=== PATIENT | male | born 1965 | race Caucasian/White ===

== ENCOUNTER 2017-12-24 18:17 | Emergency (ER) | payer OTHER ==
[~2017-12-24] VITALS: Ht 177.8 cm; Wt 111.1 kg
[~2017-12-24 18:17] MED LIST: ALPR.5; AMLO5; ASPI325; ASPI325 PO; ASPI325EC; ASPI81CH PO; ASPI81EC; ASPI81EC PO; ATOR20; ATOR20 PO; ATOR40TA PO; Adult Low Dose81 MG PO; BENAML20/5; BENTYL20 MG PO; BUSP10 PO; CEPH500 PO; CLON.1; CLON1; CLOP75; CLOP75 PO; COUMADIN; CYCL10 PO; Ciprodex Otic7.5 ML BOTHEARS; DOCU100 PO; ENAL5; ENAL5 PO; GABA100 PO; GABA400 PO; GABA600 PO; GABA800; GLIP10 PO; GLIP5ER PO; HYDACE5 PO; HYDCHL25; HYDPAM25; HYOS.125 SL; IBUP200; IBUP600 PO; IBUP800; IBUP800 PO; INSLI100I SC; INSR10I; INSR10I SC; INSUASPI; INSUASPI SC; INSULANI; INSULANI SC; INSULIN; ISOD40ER; ISOMON30 PO; Isosorbide Mono30 MG PO; KETO10 PO; LANS15EC PO; LISI20 PO; LISI5 PO; LORA.5; LORA1 PO; LORA2 PO; LOVA20; METF500; METF500 PO; METF500C PO; METH40; METH40 PO; METO100 PO; METO100ER; METO50 PO; METO50ER; METO50ER PO; NAPR500 PO; NAPR550 PO; NITR.4SL; NITR.4SL SL; NITRSPRAY SL; Naprosyn500 MG PO; OLAN2.5; OMEP40CA12 PO; ONDA4 PO; ONDA4ODT MM; OXYACE5T PO; OXYC40ER; OXYC5 PO; PENNAL50 PO; PIRO20; Pepcid40 MG PO; QUET; QUET200; RANI150; ROXICODONE5 MG PO; RXLORA1 PO; RXTRAM50 PO; Remeron45 MG PO; SIMV20 PO; SULTRIDS PO; SULTRISS PO; Synthroid88 MCG PO; TOPI100 PO; TRAM50 PO; TRAZ150T57; VENL150ER PO; [UNRECOGNIZED DRUG - CODE]
[2017-12-24 18:46] LABS: BASOPHILS ABSOLUTE AUTO 0.05 K/mm3 (0.00-0.23); BASOPHILS PERCENT AUTO 1 % (0-2); EOSINOPHILS ABSOLUTE AUTO 0.14 K/mm3 (0.00-0.68); EOSINOPHILS PERCENT AUTO 2 % (0-6); Hematocrit 45.5 % (37.0-53.0); Hemoglobin 15.8 g/dL (13.5-17.5); IMMATURE GRAN ABSOLUTE AUTO 0.02 K/mm3 (0.00-0.10); IMMATURE GRAN PERCENT AUTO 0 % (0-1); LYMPHOCYTES ABSOLUTE AUTO 1.77 K/mm3 (0.84-5.20); LYMPHOCYTES PERCENT AUTO 30 % (21-46); MONOCYTES ABSOLUTE AUTO 0.46 K/mm3 (0.16-1.47); MONOCYTES PERCENT AUTO 8 % (4-13); Mean Corpuscular HGB 31.5 pg (26.0-34.0); Mean Corpuscular HGB Conc 34.7 g/dL (31.5-36.5); Mean Corpuscular Volume 91 fL (80-100); Mean Platelet Volume 9.9 fL (9.1-12.4); NEUTROPHILS ABSOLUTE AUTO 3.53 K/mm3 (1.96-9.15); NEUTROPHILS PERCENT AUTO 59 % (41-73); Platelet Count 159 K/mm3 (150-400); RDW Coefficient Variation 12.3 % (11.7-14.2); Red Blood Cell Count 5.01 M/mm3 (4.30-5.90); White Blood Cell Count 5.97 K/mm3 (4.00-11.30)
[2017-12-24 19:04] LABS: Alanine Aminotransfer (ALT/SGP 65 U/L (12-78); Albumin, Blood 3.4 g/dL (3.4-5.0); Albumin/Globulin Ratio 0.9 (0.8-1.8); Alk Phos 79 U/L (50-136); Anion Gap 10 mmol/L (6-16); Aspartate Aminotrans (AST/SGOT 60 U/L (12-37); Bilirubin, Total 0.5 mg/dL (0.1-1.0); Blood Urea Nitrogen 10 mg/dL (8-24); Bun/Creatinine Ratio 12.9 (12.0-20.0); CO2, Blood 22 mmol/L (21-32); Calcium, Blood 8.5 mg/dL (8.5-10.1); Chloride, Blood 102 mmol/L (98-108); Creatinine, Blood 0.78 mg/dL (0.60-1.20); Globulin, Blood 3.8 g/dL (2.2-4.0); Glomerular Filtration Rate >60 (60-); Glucose, Blood 338 mg/dL (70-99); Potassium, Blood 3.7 mmol/L (3.5-5.5); Sodium, Blood 134 mmol/L (136-145); Total Protein, Blood 7.2 g/dL (6.4-8.2); Troponin I <0.015 ng/mL (0.000-0.040)
[2017-12-24] MEDS ORDERED: Humalog100 UNIT/1 (19:08)
[2017-12-24] MEDS ORDERED: Novolog100 UNIT/2 (19:09)
[2017-12-24] MEDS ORDERED: NITR.4SL SL (19:09)
[2017-12-24] MEDS ORDERED: PREG100 PO (19:21)
== END 2017-12-24 23:10 | disposition home or self-care (01) ==
LOC: ER 18:17
PROVIDERS: Emergency Medicine
DX: R07.9 Chest pain, unspecified (principal); Z88.0 Allergy status to penicillin; Z88.5 Allergy status to narcotic agent; Z88.8 Allergy status to other drugs, medicaments and biological substances; Z88.1 Allergy status to other antibiotic agents; Z79.899 Other long term (current) drug therapy; Z79.84 Long term (current) use of oral hypoglycemic drugs; Z79.82 Long term (current) use of aspirin; I25.2 Old myocardial infarction; E11.9 Type 2 diabetes mellitus without complications; I10 Essential (primary) hypertension; Z95.1 Presence of aortocoronary bypass graft; Z87.891 Personal history of nicotine dependence
CPT/HCPCS: 71046; 80053; 83880; 84484; 85025; 93005; 93010; 96361; 96374; 96375; 99284; J1885; J7030

== ENCOUNTER 2018-01-07 21:36 | Emergency (ER) | payer OTHER ==
[~2018-01-07] VITALS: Ht 177.8 cm; Wt 113.4 kg
[~2018-01-07 21:36] MED LIST changes: +Humalog100 UNIT/1; +Novolog100 UNIT/2; +PREG100 PO
[2018-01-07] MEDS ORDERED: LOSA50 PO (22:29)
[2018-01-07] MEDS ORDERED: DIAZ5 PO (22:30)
[2018-01-07] MEDS ORDERED: Omeprazole20 M1 PO (22:31)
[2018-01-07] MEDS ORDERED: LORA1SY PO (22:33)
[2018-01-07 22:43] LABS: BASOPHILS ABSOLUTE AUTO 0.04 K/mm3 (0.00-0.23); BASOPHILS PERCENT AUTO 1 % (0-2); EOSINOPHILS ABSOLUTE AUTO 0.28 K/mm3 (0.00-0.68); EOSINOPHILS PERCENT AUTO 4 % (0-6); Hematocrit 41.2 % (37.0-53.0); Hemoglobin 14.5 g/dL (13.5-17.5); IMMATURE GRAN ABSOLUTE AUTO 0.03 K/mm3 (0.00-0.10); IMMATURE GRAN PERCENT AUTO 0 % (0-1); LYMPHOCYTES ABSOLUTE AUTO 2.41 K/mm3 (0.84-5.20); LYMPHOCYTES PERCENT AUTO 33 % (21-46); MONOCYTES ABSOLUTE AUTO 0.58 K/mm3 (0.16-1.47); MONOCYTES PERCENT AUTO 8 % (4-13); Mean Corpuscular HGB 31.9 pg (26.0-34.0); Mean Corpuscular HGB Conc 35.2 g/dL (31.5-36.5); Mean Corpuscular Volume 91 fL (80-100); Mean Platelet Volume 10.6 fL (9.1-12.4); NEUTROPHILS ABSOLUTE AUTO 4.08 K/mm3 (1.96-9.15); NEUTROPHILS PERCENT AUTO 55 % (41-73); Platelet Count 145 K/mm3 (150-400); RDW Coefficient Variation 11.9 % (11.7-14.2); RDW Standard Deviation 39.8 fL (35.1-46.3); Red Blood Cell Count 4.55 M/mm3 (4.30-5.90); White Blood Cell Count 7.42 K/mm3 (4.00-11.30)
[2018-01-07 22:55] LABS: Chloride (POC) 101 mmol/L (98-108); Creatinine (POC) 0.9 mg/dL (0.8-1.3); Glucose (ISTAT POC) 326 mg/dL (70-99); Hemoglobin (POC) 13.3 g/dL (13.5-17.5); Potassium (POC) 3.5 mmol/L (3.5-5.5); Sodium (POC) 139 mmol/L (135-148); Total CO2 (POC) 27 mmol/L (21-32)
[2018-01-07 23:10] LABS: International Normalized Ratio 1.05; Prothrombin Time Results 10.9 Sec (9.7-11.5)
[2018-01-07 23:18] LABS: Alanine Aminotransfer (ALT/SGP 62 U/L (12-78); Albumin, Blood 3.1 g/dL (3.4-5.0); Albumin/Globulin Ratio 0.9 (0.8-1.8); Alk Phos 80 U/L (50-136); Anion Gap 8 mmol/L (6-16); Aspartate Aminotrans (AST/SGOT 29 U/L (12-37); Bilirubin, Total 0.3 mg/dL (0.1-1.0); Blood Urea Nitrogen 12 mg/dL (8-24); Bun/Creatinine Ratio 13.6 (12.0-20.0); CO2, Blood 28 mmol/L (21-32); Calcium, Blood 8.1 mg/dL (8.5-10.1); Chloride, Blood 104 mmol/L (98-108); Creatinine, Blood 0.89 mg/dL (0.60-1.20); Ethanol (Alcohol), Blood, Med <3 mg/dL; Globulin, Blood 3.5 g/dL (2.2-4.0); Glomerular Filtration Rate >60 (60-); Glucose, Blood 309 mg/dL (70-99); Potassium, Blood 3.6 mmol/L (3.5-5.5); Sodium, Blood 140 mmol/L (136-145); Total Protein, Blood 6.6 g/dL (6.4-8.2)
== END 2018-01-08 00:29 | disposition home or self-care (01) ==
LOC: ER 21:36
PROVIDERS: Emergency Medicine
DX: M54.2 Cervicalgia (principal); M54.6 Pain in thoracic spine; M79.651 Pain in right thigh; I10 Essential (primary) hypertension; E11.9 Type 2 diabetes mellitus without complications; Z88.0 Allergy status to penicillin; Z88.5 Allergy status to narcotic agent; Z88.1 Allergy status to other antibiotic agents; Z88.8 Allergy status to other drugs, medicaments and biological substances; Z79.4 Long term (current) use of insulin; Z79.82 Long term (current) use of aspirin; Z79.899 Other long term (current) drug therapy; V03.99XA Pedestrian with other conveyance injured in collision with car, pick-up truck or van, unspecified whether traffic or nontraffic accident, initial encounter
CPT/HCPCS: 36415; 70450; 71260; 72125; 73552; 74177; 80047; 80053; 85014; 85025; 85610; 96361; 96374; 96376; 99284; G0480; J1170; J7030; Q9967

== ENCOUNTER 2018-02-07 19:44 | Emergency (ER) | payer OTHER ==
[~2018-02-07] VITALS: Ht 177.8 cm; Wt 113.4 kg
[~2018-02-07 19:44] MED LIST changes: +DIAZ5 PO; +LORA1SY PO; +LOSA50 PO; +Omeprazole20 M1 PO
[2018-02-07 20:12] LABS: BASOPHILS ABSOLUTE AUTO 0.04 K/mm3 (0.00-0.23); BASOPHILS PERCENT AUTO 1 % (0-2); EOSINOPHILS ABSOLUTE AUTO 0.21 K/mm3 (0.00-0.68); EOSINOPHILS PERCENT AUTO 3 % (0-6); Hematocrit 43.1 % (37.0-53.0); Hemoglobin 14.9 g/dL (13.5-17.5); IMMATURE GRAN ABSOLUTE AUTO 0.03 K/mm3 (0.00-0.10); IMMATURE GRAN PERCENT AUTO 0 % (0-1); LYMPHOCYTES ABSOLUTE AUTO 2.73 K/mm3 (0.84-5.20); LYMPHOCYTES PERCENT AUTO 35 % (21-46); MONOCYTES ABSOLUTE AUTO 0.61 K/mm3 (0.16-1.47); MONOCYTES PERCENT AUTO 8 % (4-13); Mean Corpuscular HGB 32.2 pg (26.0-34.0); Mean Corpuscular HGB Conc 34.6 g/dL (31.5-36.5); Mean Corpuscular Volume 93 fL (80-100); Mean Platelet Volume 9.8 fL (9.1-12.4); NEUTROPHILS ABSOLUTE AUTO 4.17 K/mm3 (1.96-9.15); NEUTROPHILS PERCENT AUTO 54 % (41-73); Platelet Count 170 K/mm3 (150-400); RDW Coefficient Variation 12.7 % (11.7-14.2); RDW Standard Deviation 43.1 fL (35.1-46.3); Red Blood Cell Count 4.63 M/mm3 (4.30-5.90); White Blood Cell Count 7.79 K/mm3 (4.00-11.30)
[2018-02-07 20:21] LABS: Alanine Aminotransfer (ALT/SGP 43 U/L (12-78); Albumin, Blood 3.6 g/dL (3.4-5.0); Alk Phos 84 U/L (50-136); Anion Gap 3 mmol/L (6-16); Aspartate Aminotrans (AST/SGOT 28 U/L (12-37); Bilirubin, Total 0.4 mg/dL (0.1-1.0); Blood Urea Nitrogen 14 mg/dL (8-24); Bun/Creatinine Ratio 17.6 (12.0-20.0); CO2, Blood 28 mmol/L (21-32); Calcium, Blood 8.4 mg/dL (8.5-10.1); Chloride, Blood 104 mmol/L (98-108); Globulin, Blood 3.6 g/dL (2.2-4.0); Glomerular Filtration Rate >60 (60-); Glucose, Blood 260 mg/dL (70-99); Potassium, Blood 3.8 mmol/L (3.5-5.5); Sodium, Blood 135 mmol/L (136-145); Total Protein, Blood 7.2 g/dL (6.4-8.2); Troponin I <0.015 ng/mL (0.000-0.040)
[2018-02-07 20:25] LABS: International Normalized Ratio 1.01; Prothrombin Time Results 10.5 Sec (9.7-11.5)
[2018-02-07] MEDS ORDERED: ATOR20 PO (22:43)
[2018-02-07] MEDS ORDERED: TAMS.4ER PO (22:43)
[2018-02-07] MEDS ORDERED: BUSP5 PO (22:43)
[2018-02-07] MEDS ORDERED: GABA600 (22:43)
[2018-02-07] MEDS ORDERED: Novolog100 UNIT/2 (22:44)
[2018-02-07] MEDS ORDERED: INSULANPEN (22:44)
== END 2018-02-08 00:19 | disposition home or self-care (01) ==
LOC: ER 19:44
PROVIDERS: Emergency Medicine
DX: R07.2 Precordial pain (principal); Z88.0 Allergy status to penicillin; Z88.5 Allergy status to narcotic agent; Z88.8 Allergy status to other drugs, medicaments and biological substances; Z88.1 Allergy status to other antibiotic agents; Z79.899 Other long term (current) drug therapy; Z79.84 Long term (current) use of oral hypoglycemic drugs; Z79.82 Long term (current) use of aspirin; I25.2 Old myocardial infarction; E11.9 Type 2 diabetes mellitus without complications; I10 Essential (primary) hypertension; Z87.891 Personal history of nicotine dependence
CPT/HCPCS: 36415; 71046; 80053; 83880; 84484; 85025; 85610; 85730; 93005; 93010; 96374; 96375; 99284; J2405; J3010

== ENCOUNTER 2018-03-09 15:04 | Observation (INO) | payer OTHER ==
[~2018-03-09] VITALS: Ht 177.8 cm; Wt 108.8 kg
[~2018-03-09 15:04] MED LIST changes: +BUSP5 PO; +GABA600; +INSULANPEN; +TAMS.4ER PO
[2018-03-09 15:35] LABS: BASOPHILS ABSOLUTE AUTO 0.07 K/mm3 (0.00-0.23); BASOPHILS PERCENT AUTO 1 % (0-2); EOSINOPHILS ABSOLUTE AUTO 0.17 K/mm3 (0.00-0.68); EOSINOPHILS PERCENT AUTO 2 % (0-6); Hematocrit 44.1 % (37.0-53.0); Hemoglobin 15.6 g/dL (13.5-17.5); IMMATURE GRAN ABSOLUTE AUTO 0.03 K/mm3 (0.00-0.10); IMMATURE GRAN PERCENT AUTO 0 % (0-1); LYMPHOCYTES ABSOLUTE AUTO 2.34 K/mm3 (0.84-5.20); LYMPHOCYTES PERCENT AUTO 29 % (21-46); MONOCYTES ABSOLUTE AUTO 0.54 K/mm3 (0.16-1.47); MONOCYTES PERCENT AUTO 7 % (4-13); Mean Corpuscular HGB 31.8 pg (26.0-34.0); Mean Corpuscular HGB Conc 35.4 g/dL (31.5-36.5); Mean Corpuscular Volume 90 fL (80-100); Mean Platelet Volume 9.8 fL (9.1-12.4); NEUTROPHILS ABSOLUTE AUTO 5.07 K/mm3 (1.96-9.15); NEUTROPHILS PERCENT AUTO 62 % (41-73); Platelet Count 194 K/mm3 (150-400); RDW Coefficient Variation 12.3 % (11.7-14.2); RDW Standard Deviation 40.5 fL (35.1-46.3); Red Blood Cell Count 4.91 M/mm3 (4.30-5.90); White Blood Cell Count 8.22 K/mm3 (4.00-11.30)
[2018-03-09 15:49] LABS: International Normalized Ratio 1.07; Prothrombin Time Results 11.1 Sec (9.7-11.5)
[2018-03-09 15:50] LABS: Alanine Aminotransfer (ALT/SGP 54 U/L (12-78); Albumin, Blood 3.6 g/dL (3.4-5.0); Albumin/Globulin Ratio 0.9 (0.8-1.8); Alk Phos 86 U/L (50-136); Anion Gap 8 mmol/L (6-16); Aspartate Aminotrans (AST/SGOT 46 U/L (12-37); Bilirubin, Total 0.6 mg/dL (0.1-1.0); Blood Urea Nitrogen 11 mg/dL (8-24); Bun/Creatinine Ratio 14.3 (12.0-20.0); CO2, Blood 26 mmol/L (21-32); Calcium, Blood 8.7 mg/dL (8.5-10.1); Chloride, Blood 106 mmol/L (98-108); Creatinine, Blood 0.77 mg/dL (0.60-1.20); Globulin, Blood 3.8 g/dL (2.2-4.0); Glomerular Filtration Rate >60 (60-); Glucose, Blood 135 mg/dL (70-99); Potassium, Blood 3.7 mmol/L (3.5-5.5); Sodium, Blood 140 mmol/L (136-145); Total Protein, Blood 7.4 g/dL (6.4-8.2); Troponin I <0.015 ng/mL (0.000-0.040)
[2018-03-10 01:10] LABS: U Amphetamine Screen Not Detected; U Barbituate Screen Not Detected; U Benzodiazapine Screen DETECTED; U Buprenorphine Screen Not Detected; U Cannabinoids Screen DETECTED; U Cocaine Screen Not Detected; U Methadone Screen Not Detected; U Methamphetamine Screen Not Detected; U Opiates Screen Not Detected; U Oxycodone Screen Not Detected; U Phencyclidine Screen Not Detected
[2018-03-10 01:11] LABS: U Propoxyphene Screen Not Detected
[2018-03-10] MEDS ORDERED: BASAGLAR K100 UNIT/1 SQ (17:14)
[2018-03-10] MEDS ORDERED: ISOMON20 PO (17:17)
== END 2018-03-10 17:43 | disposition home or self-care (01) ==
LOC: ER 15:04 → PCU 15:05
PROVIDERS: Emergency Medicine
DX: R07.9 Chest pain, unspecified (principal); I10 Essential (primary) hypertension; E11.9 Type 2 diabetes mellitus without complications; E78.5 Hyperlipidemia, unspecified; I25.10 Atherosclerotic heart disease of native coronary artery without angina pectoris; Z79.4 Long term (current) use of insulin; Z95.1 Presence of aortocoronary bypass graft; Z87.891 Personal history of nicotine dependence; Z88.0 Allergy status to penicillin; Z88.1 Allergy status to other antibiotic agents; Z88.5 Allergy status to narcotic agent; Z88.8 Allergy status to other drugs, medicaments and biological substances; Z79.82 Long term (current) use of aspirin; Z79.899 Other long term (current) drug therapy; Z79.01 Long term (current) use of anticoagulants
CPT/HCPCS: 36415; 70450; 70496; 70498; 71275; 74175; 78452; 80053; 82947; 84484; 85025; 85610; 85730; 93005; 93010; 93017; 96360; 96361; 96372; 96374; 96376; 99285; A9500; G0378; J0280; J1650; J1815; J2785; J3010; J7030; Q9967

== ENCOUNTER 2018-07-16 17:57 | Emergency (ER) | payer OTHER ==
[~2018-07-16] VITALS: Ht 177.8 cm; Wt 106.6 kg
[~2018-07-16 17:57] MED LIST changes: +BASAGLAR K100 UNIT/1 SQ; +ISOMON20 PO
[2018-07-16 18:25] LABS: BASOPHILS ABSOLUTE AUTO 0.05 K/mm3 (0.00-0.23); BASOPHILS PERCENT AUTO 1 % (0-2); EOSINOPHILS ABSOLUTE AUTO 0.29 K/mm3 (0.00-0.68); EOSINOPHILS PERCENT AUTO 4 % (0-6); Hematocrit 47.1 % (37.0-53.0); Hemoglobin 16.3 g/dL (13.5-17.5); IMMATURE GRAN ABSOLUTE AUTO 0.02 K/mm3 (0.00-0.10); IMMATURE GRAN PERCENT AUTO 0 % (0-1); LYMPHOCYTES ABSOLUTE AUTO 2.23 K/mm3 (0.84-5.20); LYMPHOCYTES PERCENT AUTO 31 % (21-46); MONOCYTES ABSOLUTE AUTO 0.63 K/mm3 (0.16-1.47); MONOCYTES PERCENT AUTO 9 % (4-13); Mean Corpuscular HGB Conc 34.6 g/dL (31.5-36.5); Mean Corpuscular Volume 93 fL (80-100); Mean Platelet Volume 9.6 fL (9.1-12.4); NEUTROPHILS PERCENT AUTO 56 % (41-73); Platelet Count 188 K/mm3 (150-400); RDW Coefficient Variation 11.9 % (11.7-14.2); RDW Standard Deviation 41.1 fL (35.1-46.3); Red Blood Cell Count 5.09 M/mm3 (4.30-5.90); White Blood Cell Count 7.32 K/mm3 (4.00-11.30)
[2018-07-16 19:02] LABS: Alanine Aminotransfer (ALT/SGP 46 U/L (12-78); Albumin, Blood 3.6 g/dL (3.4-5.0); Albumin/Globulin Ratio 0.9 (0.8-1.8); Alk Phos 87 U/L (50-136); Anion Gap 9 mmol/L (6-16); Aspartate Aminotrans (AST/SGOT 28 U/L (12-37); Bilirubin, Total 0.6 mg/dL (0.1-1.0); Blood Urea Nitrogen 17 mg/dL (8-24); Bun/Creatinine Ratio 18.6 (12.0-20.0); CO2, Blood 24 mmol/L (21-32); Calcium, Blood 8.8 mg/dL (8.5-10.1); Chloride, Blood 102 mmol/L (98-108); Creatinine, Blood 0.91 mg/dL (0.60-1.20); Globulin, Blood 3.9 g/dL (2.2-4.0); Glomerular Filtration Rate >60 (60-); Glucose, Blood 225 mg/dL (70-99); Potassium, Blood 4.2 mmol/L (3.5-5.5); Sodium, Blood 135 mmol/L (136-145); Total Protein, Blood 7.5 g/dL (6.4-8.2); Troponin I <0.015 ng/mL (0.000-0.040)
== END 2018-07-16 20:40 | disposition home or self-care (01) ==
LOC: ER 17:57
PROVIDERS: Internal Medicine
DX: R07.89 Other chest pain (principal); I25.2 Old myocardial infarction; E11.9 Type 2 diabetes mellitus without complications; I10 Essential (primary) hypertension; Z88.0 Allergy status to penicillin; Z88.5 Allergy status to narcotic agent; Z88.8 Allergy status to other drugs, medicaments and biological substances; Z88.1 Allergy status to other antibiotic agents; Z79.899 Other long term (current) drug therapy; Z79.82 Long term (current) use of aspirin; Z79.4 Long term (current) use of insulin; Z87.891 Personal history of nicotine dependence
CPT/HCPCS: 71046; 80053; 84484; 85025; 93005; 93010; 96374; 96375; 99284-25; J1200; J1885; J2765

== ENCOUNTER 2019-01-29 07:48 | Emergency (ER) | payer OTHER ==
[~2019-01-29] VITALS: Ht 177.8 cm; Wt 102.1 kg
[2019-01-29 08:43] LABS: BASOPHILS ABSOLUTE AUTO 0.06 K/mm3 (0.00-0.23); BASOPHILS PERCENT AUTO 1 % (0-2); EOSINOPHILS ABSOLUTE AUTO 0.37 K/mm3 (0.00-0.68); EOSINOPHILS PERCENT AUTO 6 % (0-6); Hematocrit 37.6 % (37.0-53.0); Hemoglobin 13.1 g/dL (13.5-17.5); IMMATURE GRAN ABSOLUTE AUTO 0.02 K/mm3 (0.00-0.10); IMMATURE GRAN PERCENT AUTO 0 % (0-1); LYMPHOCYTES ABSOLUTE AUTO 1.41 K/mm3 (0.84-5.20); LYMPHOCYTES PERCENT AUTO 21 % (21-46); MONOCYTES PERCENT AUTO 9 % (4-13); Mean Corpuscular HGB 31.6 pg (26.0-34.0); Mean Corpuscular HGB Conc 34.8 g/dL (31.5-36.5); Mean Corpuscular Volume 91 fL (80-100); Mean Platelet Volume 10.3 fL (9.1-12.4); NEUTROPHILS ABSOLUTE AUTO 4.28 K/mm3 (1.96-9.15); NEUTROPHILS PERCENT AUTO 64 % (41-73); Platelet Count 175 K/mm3 (150-400); RDW Coefficient Variation 13.2 % (11.7-14.2); RDW Standard Deviation 43.6 fL (35.1-46.3); Red Blood Cell Count 4.15 M/mm3 (4.30-5.90); White Blood Cell Count 6.74 K/mm3 (4.00-11.30)
[2019-01-29 08:51] LABS: Alanine Aminotransfer (ALT/SGP 19 U/L (12-78); Albumin, Blood 3.2 g/dL (3.4-5.0); Alk Phos 64 U/L (50-136); Anion Gap 7 mmol/L (6-16); Aspartate Aminotrans (AST/SGOT 18 U/L (12-37); Bilirubin, Total 0.5 mg/dL (0.1-1.0); Blood Urea Nitrogen 20 mg/dL (8-24); Bun/Creatinine Ratio 24.5 (12.0-20.0); CO2, Blood 25 mmol/L (21-32); Calcium, Blood 8.3 mg/dL (8.5-10.1); Chloride, Blood 109 mmol/L (98-108); Creatinine, Blood 0.82 mg/dL (0.60-1.20); Globulin, Blood 3.3 g/dL (2.2-4.0); Glomerular Filtration Rate >60 (60-); Glucose, Blood 223 mg/dL (70-99); Potassium, Blood 4.7 mmol/L (3.5-5.5); Sodium, Blood 141 mmol/L (136-145); Total Protein, Blood 6.5 g/dL (6.4-8.2); Troponin I <0.015 ng/mL (0.000-0.040)
[2019-01-29 09:27] LABS: Source, Urine Clean Catch
[2019-01-29 09:34] LABS: Bilirubin, Urine Neg (Neg); Blood, Urine Neg (Neg); Glucose Qualitative, Urine 2+ (Neg); Ketones, Urine 1+ (Neg); Leukocyte Esterase, Urine Neg (Neg); Nitrite, Urine Neg (Neg); Protein, Urine 1+ (Neg); Urobilinogen, Urine 1+ (Normal)
[2019-01-29 10:22] LABS: Appearance, Urine Clear (Clear); Color, Urine Yellow (P-Yellow)
== END 2019-01-29 12:46 | disposition home or self-care (01) ==
LOC: ER 07:48
PROVIDERS: Emergency Medicine
DX: E11.622 Type 2 diabetes mellitus with other skin ulcer (principal); L97.529 Non-pressure chronic ulcer of other part of left foot with unspecified severity; E11.65 Type 2 diabetes mellitus with hyperglycemia; I25.2 Old myocardial infarction; I10 Essential (primary) hypertension; E03.9 Hypothyroidism, unspecified; Z87.891 Personal history of nicotine dependence; Z79.899 Other long term (current) drug therapy; Z79.4 Long term (current) use of insulin; Z79.82 Long term (current) use of aspirin
CPT/HCPCS: 36415; 70450; 80053; 84484; 85025; 93005; 93010; 96360; 99284-25; J7030

== ENCOUNTER 2019-02-09 07:38 | Emergency (ER) | payer OTHER ==
[~2019-02-09] VITALS: Ht 177.8 cm; Wt 106.6 kg
[2019-02-09] MEDS ORDERED: Bactrim Ds Tab1 EACH PO (08:04)
[2019-02-09] MEDS ORDERED: CEPH500 PO (08:04)
== END 2019-02-09 08:10 | disposition home or self-care (01) ==
LOC: ER 07:38
DX: S71.102A Unspecified open wound, left thigh, initial encounter (principal); L03.116 Cellulitis of left lower limb; X58.XXXA Exposure to other specified factors, initial encounter; Z88.0 Allergy status to penicillin; Z88.5 Allergy status to narcotic agent; Z88.8 Allergy status to other drugs, medicaments and biological substances; Z88.1 Allergy status to other antibiotic agents; Z79.4 Long term (current) use of insulin; Z79.899 Other long term (current) drug therapy; Z79.82 Long term (current) use of aspirin; E11.9 Type 2 diabetes mellitus without complications; I10 Essential (primary) hypertension; I25.2 Old myocardial infarction; Z87.891 Personal history of nicotine dependence; E03.9 Hypothyroidism, unspecified
CPT/HCPCS: 99281

== ENCOUNTER 2019-04-24 15:16 | Emergency (ER) | payer OTHER ==
[~2019-04-24] VITALS: Ht 177.8 cm; Wt 102.1 kg
[~2019-04-24 15:16] MED LIST changes: +BASAGLAR K100 UNIT/1 SC; +Bactrim Ds Tab1 EACH PO; +MIRT30 PO; +Novolin R100 UNIT/M SC; -Remeron45 MG PO
[2019-04-24 16:49] LABS: BASOPHILS ABSOLUTE AUTO 0.07 K/mm3 (0.00-0.23); BASOPHILS PERCENT AUTO 1 % (0-2); EOSINOPHILS ABSOLUTE AUTO 0.34 K/mm3 (0.00-0.68); EOSINOPHILS PERCENT AUTO 5 % (0-6); Hemoglobin 12.2 g/dL (13.5-17.5); IMMATURE GRAN ABSOLUTE AUTO 0.02 K/mm3 (0.00-0.10); IMMATURE GRAN PERCENT AUTO 0 % (0-1); LYMPHOCYTES ABSOLUTE AUTO 2.34 K/mm3 (0.84-5.20); LYMPHOCYTES PERCENT AUTO 32 % (21-46); MONOCYTES ABSOLUTE AUTO 0.46 K/mm3 (0.16-1.47); MONOCYTES PERCENT AUTO 6 % (4-13); Mean Corpuscular HGB 27.4 pg (26.0-34.0); Mean Corpuscular HGB Conc 32.1 g/dL (31.5-36.5); Mean Corpuscular Volume 85 fL (80-100); Mean Platelet Volume 8.9 fL (9.1-12.4); NEUTROPHILS ABSOLUTE AUTO 4.06 K/mm3 (1.96-9.15); NEUTROPHILS PERCENT AUTO 56 % (41-73); Platelet Count 358 K/mm3 (150-400); RDW Coefficient Variation 13.4 % (11.7-14.2); RDW Standard Deviation 41.3 fL (35.1-46.3); Red Blood Cell Count 4.46 M/mm3 (4.30-5.90); White Blood Cell Count 7.29 K/mm3 (4.00-11.30)
[2019-04-24 17:06] LABS: Alanine Aminotransfer (ALT/SGP 26 U/L (12-78); Albumin, Blood 3.3 g/dL (3.4-5.0); Albumin/Globulin Ratio 0.7 (0.8-1.8); Alk Phos 93 U/L (50-136); Anion Gap 5 mmol/L (6-16); Aspartate Aminotrans (AST/SGOT 21 U/L (12-37); Bilirubin, Total 0.4 mg/dL (0.1-1.0); Blood Urea Nitrogen 14 mg/dL (8-24); Bun/Creatinine Ratio 16.9 (12.0-20.0); CO2, Blood 29 mmol/L (21-32); Calcium, Blood 8.9 mg/dL (8.5-10.1); Chloride, Blood 103 mmol/L (98-108); Creatinine, Blood 0.83 mg/dL (0.60-1.20); Globulin, Blood 4.8 g/dL (2.2-4.0); Glomerular Filtration Rate >60 (60-); Glucose, Blood 184 mg/dL (70-99); Potassium, Blood 3.7 mmol/L (3.5-5.5); Sodium, Blood 137 mmol/L (136-145); Total Protein, Blood 8.1 g/dL (6.4-8.2)
[2019-04-24] MEDS ORDERED: Cleocin HCl300 MG PO (19:39)
[2019-05-01] MEDS ORDERED: Synthroid88 MCG PO (11:26)
[2019-05-01] MEDS ORDERED: Lipitor20 MG PO (11:27)
[2019-05-01] MEDS ORDERED: LOSA50 PO (11:27)
[2019-05-01] MEDS ORDERED: MIRT30 PO (11:27)
[2019-05-01] MEDS ORDERED: Isosorbide Mono30 MG PO (11:27)
[2019-05-01] MEDS ORDERED: Metformin HCl1000 MG PO (11:27)
[2019-05-01] MEDS ORDERED: Citalopram HBr40 MG PO (11:28)
[2019-05-01] MEDS ORDERED: PANT40 PO (11:28)
[2019-05-01] MEDS ORDERED: NITR.4SL SL (11:29)
[2019-05-01] MEDS ORDERED: Aspirin EC81 MG PO (11:30)
[2019-05-01] MEDS ORDERED: DIAZ5 PO (11:30)
[2019-05-01] MEDS ORDERED: BASAGLAR K100 UNIT/1 SC (11:31)
[2019-05-01] MEDS ORDERED: METO100ER PO (11:31)
[2019-05-01] MEDS ORDERED: Mobic15 MG PO (11:31)
[2019-05-01] MEDS ORDERED: TAMS.4ER PO (11:32)
[2019-05-01] MEDS ORDERED: BUSP5 PO (11:32)
[2019-05-01] MEDS ORDERED: Novolog100 UNIT/1 SC (11:32)
[2019-05-01] MEDS ORDERED: Neurontin600 MG PO (11:33)
[2019-06-13] MEDS ORDERED: OXYC5 PO (14:13)
[2019-06-13] MEDS ORDERED: DIAZ5 PO (14:14)
[2019-06-13] MEDS ORDERED: Mobic15 MG PO (14:14)
[2019-06-13] MEDS ORDERED: BUSP5 PO (14:16)
[2019-06-13] MEDS ORDERED: INSUGL100V SC (14:17)
== END 2019-04-24 20:39 | disposition home or self-care (01) ==
LOC: ER 15:16
PROVIDERS: Physician Assistant
DX: T81.49XA Infection following a procedure, other surgical site, initial encounter (principal); L03.311 Cellulitis of abdominal wall; Z88.0 Allergy status to penicillin; Z88.5 Allergy status to narcotic agent; Z88.1 Allergy status to other antibiotic agents; Z79.899 Other long term (current) drug therapy; Z79.4 Long term (current) use of insulin; I25.2 Old myocardial infarction; E11.9 Type 2 diabetes mellitus without complications; I10 Essential (primary) hypertension; E03.9 Hypothyroidism, unspecified; Z87.891 Personal history of nicotine dependence
CPT/HCPCS: 36415; 74177; 80053; 85025; 99284-25; Q9967

== ENCOUNTER 2019-05-02 17:54 | Emergency (ER) | payer OTHER ==
[~2019-05-02] VITALS: Ht 177.8 cm; Wt 101.2 kg
[~2019-05-02 17:54] MED LIST changes: +Aspirin EC81 MG PO; +Citalopram HBr40 MG PO; +Cleocin HCl300 MG PO; +Lipitor20 MG PO; +METO100ER PO; +Metformin HCl1000 MG PO; +Mobic15 MG PO; +Neurontin600 MG PO; +Novolog100 UNIT/1 SC; +PANT40 PO
[2019-05-02 18:34] LABS: BASOPHILS ABSOLUTE AUTO 0.03 K/mm3 (0.00-0.23); BASOPHILS PERCENT AUTO 1 % (0-2); EOSINOPHILS ABSOLUTE AUTO 0.28 K/mm3 (0.00-0.68); EOSINOPHILS PERCENT AUTO 6 % (0-6); Hematocrit 32.7 % (37.0-53.0); Hemoglobin 10.3 g/dL (13.5-17.5); IMMATURE GRAN ABSOLUTE AUTO 0.01 K/mm3 (0.00-0.10); IMMATURE GRAN PERCENT AUTO 0 % (0-1); LYMPHOCYTES ABSOLUTE AUTO 1.72 K/mm3 (0.84-5.20); LYMPHOCYTES PERCENT AUTO 34 % (21-46); MONOCYTES ABSOLUTE AUTO 0.44 K/mm3 (0.16-1.47); MONOCYTES PERCENT AUTO 9 % (4-13); Mean Corpuscular HGB 27.4 pg (26.0-34.0); Mean Corpuscular HGB Conc 31.5 g/dL (31.5-36.5); Mean Corpuscular Volume 87 fL (80-100); Mean Platelet Volume 9.1 fL (9.1-12.4); NEUTROPHILS ABSOLUTE AUTO 2.56 K/mm3 (1.96-9.15); NEUTROPHILS PERCENT AUTO 51 % (41-73); Platelet Count 155 K/mm3 (150-400); RDW Coefficient Variation 13.6 % (11.7-14.2); RDW Standard Deviation 43.1 fL (35.1-46.3); Red Blood Cell Count 3.76 M/mm3 (4.30-5.90); White Blood Cell Count 5.04 K/mm3 (4.00-11.30)
[2019-05-02 18:52] LABS: Alanine Aminotransfer (ALT/SGP 38 U/L (12-78); Albumin/Globulin Ratio 0.8 (0.8-1.8); Alk Phos 77 U/L (50-136); Anion Gap 6 mmol/L (6-16); Aspartate Aminotrans (AST/SGOT 25 U/L (12-37); Bilirubin, Total 0.6 mg/dL (0.1-1.0); Blood Urea Nitrogen 11 mg/dL (8-24); Bun/Creatinine Ratio 15.4 (12.0-20.0); CO2, Blood 28 mmol/L (21-32); Calcium, Blood 8.3 mg/dL (8.5-10.1); Chloride, Blood 102 mmol/L (98-108); Creatinine, Blood 0.72 mg/dL (0.60-1.20); Globulin, Blood 3.6 g/dL (2.2-4.0); Glomerular Filtration Rate >60 (60-); Glucose, Blood 306 mg/dL (70-99); Potassium, Blood 4.1 mmol/L (3.5-5.5); Sodium, Blood 136 mmol/L (136-145); Total Protein, Blood 6.6 g/dL (6.4-8.2); Troponin I <0.015 ng/mL (0.000-0.040)
[2019-06-13] MEDS ORDERED: OXYC5 PO (14:13)
[2019-06-13] MEDS ORDERED: Mobic15 MG PO (14:14)
[2019-06-13] MEDS ORDERED: DIAZ5 PO (14:14)
[2019-06-13] MEDS ORDERED: BUSP5 PO (14:16)
[2019-06-13] MEDS ORDERED: INSUGL100V SC (14:17)
== END 2019-05-02 22:03 | disposition home or self-care (01) ==
LOC: ER 17:54
PROVIDERS: Emergency Medicine
DX: R07.9 Chest pain, unspecified (principal); E11.9 Type 2 diabetes mellitus without complications; C18.9 Malignant neoplasm of colon, unspecified; E03.9 Hypothyroidism, unspecified; I10 Essential (primary) hypertension; I25.2 Old myocardial infarction; I47.1 Supraventricular tachycardia; Z87.891 Personal history of nicotine dependence; Z88.0 Allergy status to penicillin; Z88.5 Allergy status to narcotic agent; Z88.8 Allergy status to other drugs, medicaments and biological substances; Z79.82 Long term (current) use of aspirin; Z79.899 Other long term (current) drug therapy; Z79.4 Long term (current) use of insulin
CPT/HCPCS: 36415; 71260; 80053; 84484; 85025; 93005; 93010; 96374-59; 96375-59; 99285-25; J1885; J3010; Q9967

== ENCOUNTER 2019-05-04 06:04 | Day surgery (SDC) | payer OTHER ==
[~2019-05-04] VITALS: Ht 177.8 cm; Wt 106.4 kg
[2019-06-13] MEDS ORDERED: OXYC5 PO (14:13)
[2019-06-13] MEDS ORDERED: Mobic15 MG PO (14:14)
[2019-06-13] MEDS ORDERED: DIAZ5 PO (14:14)
[2019-06-13] MEDS ORDERED: BUSP5 PO (14:16)
[2019-06-13] MEDS ORDERED: INSUGL100V SC (14:17)
== END 2019-05-04 09:40 | disposition home or self-care (01) ==
LOC: ORSCSDS 06:04
PROVIDERS: Surgery
PROC: 05H533Z Insertion of Infusion Device into Right Subclavian Vein, Percutaneous Approach (ICD-10-PCS; principal; 2019-05-04 07:30)
PROC: B5161ZA Fluoroscopy of Right Subclavian Vein using Low Osmolar Contrast, Guidance (ICD-10-PCS; principal; 2019-05-04 07:30)
DX: C20 Malignant neoplasm of rectum (principal); I10 Essential (primary) hypertension; E11.9 Type 2 diabetes mellitus without complications; I25.10 Atherosclerotic heart disease of native coronary artery without angina pectoris; F17.210 Nicotine dependence, cigarettes, uncomplicated; I25.2 Old myocardial infarction; Z79.4 Long term (current) use of insulin; Z79.82 Long term (current) use of aspirin; Z79.899 Other long term (current) drug therapy; E66.9 Obesity, unspecified; Z68.33 Body mass index [BMI] 33.0-33.9, adult
CPT/HCPCS: 77001; 82947; C1788; J0690; J1100; J1642; J2250; J2405; J2704; J3010; J7120

== ENCOUNTER 2019-05-12 18:43 | Observation (INO) | payer OTHER ==
[~2019-05-12] VITALS: Ht 175.3 cm; Wt 108.4 kg
[2019-05-12 19:19] LABS: BASOPHILS ABSOLUTE AUTO 0.05 K/mm3 (0.00-0.23); BASOPHILS PERCENT AUTO 1 % (0-2); EOSINOPHILS ABSOLUTE AUTO 0.28 K/mm3 (0.00-0.68); EOSINOPHILS PERCENT AUTO 4 % (0-6); Hematocrit 35.6 % (37.0-53.0); Hemoglobin 10.9 g/dL (13.5-17.5); IMMATURE GRAN ABSOLUTE AUTO 0.02 K/mm3 (0.00-0.10); IMMATURE GRAN PERCENT AUTO 0 % (0-1); LYMPHOCYTES ABSOLUTE AUTO 1.79 K/mm3 (0.84-5.20); LYMPHOCYTES PERCENT AUTO 28 % (21-46); MONOCYTES ABSOLUTE AUTO 0.47 K/mm3 (0.16-1.47); MONOCYTES PERCENT AUTO 7 % (4-13); Mean Corpuscular HGB 26.5 pg (26.0-34.0); Mean Corpuscular HGB Conc 30.6 g/dL (31.5-36.5); Mean Corpuscular Volume 87 fL (80-100); Mean Platelet Volume 9.9 fL (9.1-12.4); NEUTROPHILS ABSOLUTE AUTO 3.91 K/mm3 (1.96-9.15); NEUTROPHILS PERCENT AUTO 60 % (41-73); Platelet Count 200 K/mm3 (150-400); RDW Coefficient Variation 14.5 % (11.7-14.2); RDW Standard Deviation 45.7 fL (35.1-46.3); Red Blood Cell Count 4.11 M/mm3 (4.30-5.90); White Blood Cell Count 6.52 K/mm3 (4.00-11.30)
[2019-05-12 19:23] LABS: Alanine Aminotransfer (ALT/SGP 40 U/L (12-78); Albumin, Blood 3.1 g/dL (3.4-5.0); Albumin/Globulin Ratio 0.8 (0.8-1.8); Alk Phos 78 U/L (50-136); Anion Gap 4 mmol/L (6-16); Aspartate Aminotrans (AST/SGOT 33 U/L (12-37); Bilirubin, Total 0.3 mg/dL (0.1-1.0); Blood Urea Nitrogen 14 mg/dL (8-24); Bun/Creatinine Ratio 18.1 (12.0-20.0); CO2, Blood 27 mmol/L (21-32); Calcium, Blood 8.4 mg/dL (8.5-10.1); Chloride, Blood 102 mmol/L (98-108); Creatinine, Blood 0.78 mg/dL (0.60-1.20); Globulin, Blood 3.7 g/dL (2.2-4.0); Glomerular Filtration Rate >60 (60-); Glucose, Blood 356 mg/dL (70-99); Potassium, Blood 4.2 mmol/L (3.5-5.5); Sodium, Blood 133 mmol/L (136-145); Total Protein, Blood 6.8 g/dL (6.4-8.2)
[2019-05-12 22:26] LABS: Source, Urine Voided
[2019-05-12 22:30] LABS: Bilirubin, Urine Neg (Neg); Blood, Urine Neg (Neg); Glucose Qualitative, Urine 4+ (Neg); Ketones, Urine Neg (Neg); Leukocyte Esterase, Urine Neg (Neg); Nitrite, Urine Neg (Neg); Protein, Urine Neg (Neg); Specific Gravity, Urine 1.025 (1.003-1.022); Urobilinogen, Urine NORM (Normal)
[2019-05-12 22:32] LABS: Appearance, Urine Clear (Clear); Color, Urine Yellow (P-Yellow)
[2019-05-12 23:18] LABS: U Amphetamine Screen Not Detected; U Barbituate Screen Not Detected; U Benzodiazapine Screen Not Detected; U Buprenorphine Screen Not Detected; U Cannabinoids Screen DETECTED; U Cocaine Screen Not Detected; U Methadone Screen Not Detected; U Methamphetamine Screen Not Detected; U Opiates Screen Not Detected; U Oxycodone Screen Not Detected; U Phencyclidine Screen Not Detected; U Propoxyphene Screen Not Detected
[2019-05-13 04:21] LABS: BASOPHILS ABSOLUTE AUTO 0.03 K/mm3 (0.00-0.23); BASOPHILS PERCENT AUTO 1 % (0-2); EOSINOPHILS ABSOLUTE AUTO 0.23 K/mm3 (0.00-0.68); EOSINOPHILS PERCENT AUTO 4 % (0-6); Hematocrit 34.8 % (37.0-53.0); Hemoglobin 10.8 g/dL (13.5-17.5); IMMATURE GRAN ABSOLUTE AUTO 0.01 K/mm3 (0.00-0.10); IMMATURE GRAN PERCENT AUTO 0 % (0-1); LYMPHOCYTES ABSOLUTE AUTO 1.43 K/mm3 (0.84-5.20); LYMPHOCYTES PERCENT AUTO 27 % (21-46); MONOCYTES ABSOLUTE AUTO 0.46 K/mm3 (0.16-1.47); MONOCYTES PERCENT AUTO 9 % (4-13); Mean Corpuscular HGB 26.3 pg (26.0-34.0); Mean Corpuscular Volume 85 fL (80-100); Mean Platelet Volume 9.8 fL (9.1-12.4); NEUTROPHILS ABSOLUTE AUTO 3.06 K/mm3 (1.96-9.15); NEUTROPHILS PERCENT AUTO 59 % (41-73); Platelet Count 185 K/mm3 (150-400); RDW Coefficient Variation 14.4 % (11.7-14.2); RDW Standard Deviation 44.7 fL (35.1-46.3); White Blood Cell Count 5.22 K/mm3 (4.00-11.30)
[2019-05-13 04:40] LABS: Anion Gap 3 mmol/L (6-16); Blood Urea Nitrogen 14 mg/dL (8-24); Bun/Creatinine Ratio 18.4 (12.0-20.0); CO2, Blood 29 mmol/L (21-32); Calcium, Blood 8.4 mg/dL (8.5-10.1); Chloride, Blood 104 mmol/L (98-108); Creatinine, Blood 0.76 mg/dL (0.60-1.20); Glomerular Filtration Rate >60 (60-); Glucose, Blood 327 mg/dL (70-99); Potassium, Blood 4.1 mmol/L (3.5-5.5); Sodium, Blood 136 mmol/L (136-145)
--- NOTE | 2019-05-13 07:11 | NUR ---
new pt, room air, saline locked, observation, tele, call light in reach able to make needs known, indpendent in room, bsr given to day shift
--- NOTE | 2019-05-13 08:45 | NUR ---
PT PLEASANT COOP STATES ONLY PAIN AT LEFT CHEST WALL. LIGHT. MUCH IMPROVED FROM YEST. MEDIPORT RECENTLY INSTALLED. SOME REDNESS AND WARM AT SITE. PT STATES CHEST IS LIKE LIGHT PRESSURE. H/R REG, NO MURMER NOTED. PER TELE S TACH AT [facility] AT 112, HAS BEEN HANGING NSR IN 90'S THIS AM. LUNGS CLEAR, RESP EASY, UNLABORED. ON R/A. BT X4 LAST BM YEST. VOIDS PER BATHROOM. INDEPENDANT IN ROOM. NO OTHER CONCERNS AT THIS TIME. BED IN LOW POSITION, CALL LITE IN REACH, CALLS AOPPROP
--- NOTE | 2019-05-13 09:25 | NUR ---
CALLED DR GREENE. 2 ORDERS FOR N/S. CANCEL AND MAKE NS AT 150/HR CONT.
[2019-05-13] MEDS ORDERED: CLIN300 PO (14:37)
--- NOTE | 2019-05-13 15:22 | NUR ---
IV PULLED INTACT. TELE REMOVED. DISCHARGE REVIEWED WITH PT . RIDOlimpia OSULLIVAN CALLED TO BE HERE AT 1530/ PT STATES UNDERSTANDING OF MEDS AND INSTRUCTIONS. PT WALKED TO DOOR WITH AIDE. WILL SIT AT FRONT FOR TAXI.
[2019-06-13] MEDS ORDERED: OXYC5 PO (14:13)
[2019-06-13] MEDS ORDERED: DIAZ5 PO (14:14)
[2019-06-13] MEDS ORDERED: Mobic15 MG PO (14:14)
[2019-06-13] MEDS ORDERED: BUSP5 PO (14:16)
[2019-06-13] MEDS ORDERED: INSUGL100V SC (14:17)
== END 2019-05-13 15:34 | disposition home or self-care (01) ==
LOC: ER 18:43 → MEDS 18:44 → ENPENDDIS 05-13 13:59 → MEDS 05-13 15:34
PROVIDERS: Emergency Medicine; Nurse Practitioner Acute Care; ADMIT Internal Medicine
DX: R07.9 Chest pain, unspecified (principal); L03.313 Cellulitis of chest wall; I95.9 Hypotension, unspecified; I25.10 Atherosclerotic heart disease of native coronary artery without angina pectoris; I10 Essential (primary) hypertension; E11.9 Type 2 diabetes mellitus without complications; E78.5 Hyperlipidemia, unspecified; E03.9 Hypothyroidism, unspecified; E66.01 Morbid (severe) obesity due to excess calories; Z95.1 Presence of aortocoronary bypass graft; Z79.899 Other long term (current) drug therapy; Z79.4 Long term (current) use of insulin; Z79.82 Long term (current) use of aspirin; Z88.5 Allergy status to narcotic agent; Z88.8 Allergy status to other drugs, medicaments and biological substances; Z88.0 Allergy status to penicillin
CPT/HCPCS: 36415; 71046; 80048; 80053; 81003; 82947; 83605; 84145; 84484; 85025; 87040; 93005; 93010; 96374; 96375; 99285-25; G0378; J1650; J2405; J7030

== ENCOUNTER 2019-05-15 21:17 | Emergency (ER) | payer OTHER ==
[~2019-05-15] VITALS: Ht 177.8 cm; Wt 104.3 kg
[~2019-05-15 21:17] MED LIST changes: +CLIN300 PO
[2019-06-13] MEDS ORDERED: OXYC5 PO (14:13)
[2019-06-13] MEDS ORDERED: DIAZ5 PO (14:14)
[2019-06-13] MEDS ORDERED: Mobic15 MG PO (14:14)
[2019-06-13] MEDS ORDERED: BUSP5 PO (14:16)
[2019-06-13] MEDS ORDERED: INSUGL100V SC (14:17)
== END 2019-05-15 22:23 | disposition home or self-care (01) ==
LOC: ER 21:17
DX: T82.538A Leakage of other cardiac and vascular devices and implants, initial encounter (principal); Z88.0 Allergy status to penicillin; Z88.5 Allergy status to narcotic agent; Z88.8 Allergy status to other drugs, medicaments and biological substances; Z88.1 Allergy status to other antibiotic agents; Z79.899 Other long term (current) drug therapy; Z79.82 Long term (current) use of aspirin; Z79.4 Long term (current) use of insulin; I25.2 Old myocardial infarction; E11.9 Type 2 diabetes mellitus without complications; I10 Essential (primary) hypertension; E03.9 Hypothyroidism, unspecified; Z87.891 Personal history of nicotine dependence; Z85.048 Personal history of other malignant neoplasm of rectum, rectosigmoid junction, and anus
CPT/HCPCS: 99283

== ENCOUNTER 2019-05-21 22:15 | Emergency (ER) | payer OTHER ==
[~2019-05-21] VITALS: Ht 177.8 cm; Wt 103.4 kg
[2019-05-21] MEDS ORDERED: CLARITIN10 MG PO (22:38)
[2019-05-21 22:41] LABS: BASOPHILS ABSOLUTE AUTO 0.01 K/mm3 (0.00-0.23); BASOPHILS PERCENT AUTO 0 % (0-2); EOSINOPHILS PERCENT AUTO 5 % (0-6); Hematocrit 37.5 % (37.0-53.0); IMMATURE GRAN ABSOLUTE AUTO 0.01 K/mm3 (0.00-0.10); IMMATURE GRAN PERCENT AUTO 0 % (0-1); LYMPHOCYTES ABSOLUTE AUTO 1.73 K/mm3 (0.84-5.20); LYMPHOCYTES PERCENT AUTO 30 % (21-46); MONOCYTES ABSOLUTE AUTO 0.34 K/mm3 (0.16-1.47); MONOCYTES PERCENT AUTO 6 % (4-13); Mean Corpuscular HGB 26.4 pg (26.0-34.0); Mean Corpuscular Volume 83 fL (80-100); Mean Platelet Volume 9.3 fL (9.1-12.4); NEUTROPHILS ABSOLUTE AUTO 3.34 K/mm3 (1.96-9.15); NEUTROPHILS PERCENT AUTO 58 % (41-73); Platelet Count 186 K/mm3 (150-400); RDW Coefficient Variation 14.6 % (11.7-14.2); RDW Standard Deviation 43.6 fL (35.1-46.3); Red Blood Cell Count 4.54 M/mm3 (4.30-5.90); White Blood Cell Count 5.73 K/mm3 (4.00-11.30)
[2019-05-21 22:55] LABS: Alanine Aminotransfer (ALT/SGP 52 U/L (12-78); Albumin, Blood 3.6 g/dL (3.4-5.0); Albumin/Globulin Ratio 0.9 (0.8-1.8); Alk Phos 96 U/L (50-136); Anion Gap 9 mmol/L (6-16); Aspartate Aminotrans (AST/SGOT 59 U/L (12-37); Bilirubin, Total 0.4 mg/dL (0.1-1.0); Blood Urea Nitrogen 17 mg/dL (8-24); Bun/Creatinine Ratio 14.7 (12.0-20.0); CO2, Blood 24 mmol/L (21-32); Calcium, Blood 8.4 mg/dL (8.5-10.1); Chloride, Blood 99 mmol/L (98-108); Creatinine, Blood 1.16 mg/dL (0.60-1.20); Glomerular Filtration Rate >60 (60-); Glucose, Blood 282 mg/dL (70-99); Potassium, Blood 3.5 mmol/L (3.5-5.5); Sodium, Blood 132 mmol/L (136-145); Total Protein, Blood 7.6 g/dL (6.4-8.2); Troponin I <0.015 ng/mL (0.000-0.040)
[2019-05-22 02:41] LABS: Source, Urine Clean Catch
[2019-05-22 02:52] LABS: Bilirubin, Urine Neg (Neg); Blood, Urine 1+ (Neg); Glucose Qualitative, Urine 3+ (Neg); Ketones, Urine Neg (Neg); Leukocyte Esterase, Urine Neg (Neg); Nitrite, Urine Neg (Neg); Protein, Urine 2+ (Neg); Urobilinogen, Urine NORM (Normal)
[2019-05-22 02:53] LABS: Appearance, Urine Clear (Clear); Color, Urine Yellow (P-Yellow)
[2019-05-22 03:02] LABS: Bacteria Mod /hpf; Red Blood Cells, Urine 0-2 /hpf (0-2); Squamous Epithelial Cells Not Seen /hpf (Few); White Blood Cells, Urine 0-2 /hpf (0-5)
[2019-06-13] MEDS ORDERED: OXYC5 PO (14:13)
[2019-06-13] MEDS ORDERED: Mobic15 MG PO (14:14)
[2019-06-13] MEDS ORDERED: DIAZ5 PO (14:14)
[2019-06-13] MEDS ORDERED: BUSP5 PO (14:16)
[2019-06-13] MEDS ORDERED: INSUGL100V SC (14:17)
== END 2019-05-22 04:25 | disposition home or self-care (01) ==
LOC: ER 22:15
PROVIDERS: Physician Assistant
DX: R55 Syncope and collapse (principal); R07.89 Other chest pain; R06.00 Dyspnea, unspecified; E11.40 Type 2 diabetes mellitus with diabetic neuropathy, unspecified; Z88.0 Allergy status to penicillin; Z88.5 Allergy status to narcotic agent; Z88.8 Allergy status to other drugs, medicaments and biological substances; Z88.1 Allergy status to other antibiotic agents; Z79.899 Other long term (current) drug therapy; Z79.82 Long term (current) use of aspirin; Z79.4 Long term (current) use of insulin; E03.9 Hypothyroidism, unspecified; I10 Essential (primary) hypertension; Z87.891 Personal history of nicotine dependence
CPT/HCPCS: 71046; 71260; 80053; 81001; 82947; 83880; 84484; 85025; 85379; 87086; 93005; 93010; 96374-59; 96375-59; 99285-25; J2405; J3010; Q9967

== ENCOUNTER 2019-05-30 19:04 | Emergency (ER) | payer OTHER ==
[~2019-05-30] VITALS: Ht 177.8 cm; Wt 104.3 kg
[~2019-05-30 19:04] MED LIST changes: +CLARITIN10 MG PO
[2019-05-30 19:22] LABS: BASOPHILS ABSOLUTE AUTO 0.08 K/mm3 (0.00-0.23); BASOPHILS PERCENT AUTO 2 % (0-2); EOSINOPHILS ABSOLUTE AUTO 0.27 K/mm3 (0.00-0.68); EOSINOPHILS PERCENT AUTO 6 % (0-6); Hematocrit 36.4 % (37.0-53.0); Hemoglobin 11.9 g/dL (13.5-17.5); IMMATURE GRAN ABSOLUTE AUTO 0.01 K/mm3 (0.00-0.10); IMMATURE GRAN PERCENT AUTO 0 % (0-1); LYMPHOCYTES ABSOLUTE AUTO 1.57 K/mm3 (0.84-5.20); LYMPHOCYTES PERCENT AUTO 37 % (21-46); MONOCYTES ABSOLUTE AUTO 0.35 K/mm3 (0.16-1.47); MONOCYTES PERCENT AUTO 8 % (4-13); Mean Corpuscular HGB 26.6 pg (26.0-34.0); Mean Corpuscular HGB Conc 32.7 g/dL (31.5-36.5); Mean Corpuscular Volume 81 fL (80-100); Mean Platelet Volume 9.3 fL (9.1-12.4); NEUTROPHILS ABSOLUTE AUTO 1.99 K/mm3 (1.96-9.15); NEUTROPHILS PERCENT AUTO 47 % (41-73); Platelet Count 175 K/mm3 (150-400); RDW Coefficient Variation 15.6 % (11.7-14.2); RDW Standard Deviation 44.8 fL (35.1-46.3); Red Blood Cell Count 4.48 M/mm3 (4.30-5.90); White Blood Cell Count 4.27 K/mm3 (4.00-11.30)
[2019-05-30 19:43] LABS: Alanine Aminotransfer (ALT/SGP 45 U/L (12-78); Albumin, Blood 3.3 g/dL (3.4-5.0); Albumin/Globulin Ratio 0.8 (0.8-1.8); Alk Phos 92 U/L (50-136); Anion Gap 8 mmol/L (6-16); Aspartate Aminotrans (AST/SGOT 30 U/L (12-37); Bilirubin, Total 0.3 mg/dL (0.1-1.0); Blood Urea Nitrogen 14 mg/dL (8-24); Bun/Creatinine Ratio 17.1 (12.0-20.0); CO2, Blood 26 mmol/L (21-32); Calcium, Blood 8.6 mg/dL (8.5-10.1); Chloride, Blood 99 mmol/L (98-108); Creatinine, Blood 0.82 mg/dL (0.60-1.20); Globulin, Blood 3.9 g/dL (2.2-4.0); Glomerular Filtration Rate >60 (60-); Glucose, Blood 339 mg/dL (70-99); Potassium, Blood 4.2 mmol/L (3.5-5.5); Sodium, Blood 133 mmol/L (136-145); Total Protein, Blood 7.2 g/dL (6.4-8.2); Troponin I <0.015 ng/mL (0.000-0.040)
[2019-06-13] MEDS ORDERED: OXYC5 PO (14:13)
[2019-06-13] MEDS ORDERED: DIAZ5 PO (14:14)
[2019-06-13] MEDS ORDERED: Mobic15 MG PO (14:14)
[2019-06-13] MEDS ORDERED: BUSP5 PO (14:16)
[2019-06-13] MEDS ORDERED: INSUGL100V SC (14:17)
== END 2019-05-30 20:48 | disposition home or self-care (01) ==
LOC: ER 19:04
PROVIDERS: Emergency Medicine
DX: R07.9 Chest pain, unspecified (principal); E11.9 Type 2 diabetes mellitus without complications; E03.9 Hypothyroidism, unspecified; I10 Essential (primary) hypertension; I47.1 Supraventricular tachycardia; I25.2 Old myocardial infarction; Z85.048 Personal history of other malignant neoplasm of rectum, rectosigmoid junction, and anus; Z79.82 Long term (current) use of aspirin; Z79.899 Other long term (current) drug therapy; Z88.0 Allergy status to penicillin; Z88.5 Allergy status to narcotic agent; Z88.8 Allergy status to other drugs, medicaments and biological substances; Z88.1 Allergy status to other antibiotic agents; Z79.4 Long term (current) use of insulin
CPT/HCPCS: 71046; 80053; 83880; 84484; 85025; 93005; 93010; 96374; 99285-25; J1885

== ENCOUNTER 2019-06-11 19:37 | Emergency (ER) | payer OTHER ==
[~2019-06-11] VITALS: Ht 177.8 cm; Wt 103.4 kg
[2019-06-11 21:11] LABS: BASOPHILS ABSOLUTE AUTO 0.07 K/mm3 (0.00-0.23); BASOPHILS PERCENT AUTO 1 % (0-2); EOSINOPHILS ABSOLUTE AUTO 0.36 K/mm3 (0.00-0.68); EOSINOPHILS PERCENT AUTO 6 % (0-6); Hematocrit 36.9 % (37.0-53.0); Hemoglobin 11.6 g/dL (13.5-17.5); IMMATURE GRAN ABSOLUTE AUTO 0.01 K/mm3 (0.00-0.10); IMMATURE GRAN PERCENT AUTO 0 % (0-1); LYMPHOCYTES ABSOLUTE AUTO 2.19 K/mm3 (0.84-5.20); LYMPHOCYTES PERCENT AUTO 34 % (21-46); MONOCYTES ABSOLUTE AUTO 0.56 K/mm3 (0.16-1.47); MONOCYTES PERCENT AUTO 9 % (4-13); Mean Corpuscular HGB 26.1 pg (26.0-34.0); Mean Corpuscular HGB Conc 31.4 g/dL (31.5-36.5); Mean Corpuscular Volume 83 fL (80-100); Mean Platelet Volume 9.7 fL (9.1-12.4); NEUTROPHILS ABSOLUTE AUTO 3.34 K/mm3 (1.96-9.15); NEUTROPHILS PERCENT AUTO 51 % (41-73); Platelet Count 183 K/mm3 (150-400); RDW Coefficient Variation 16.2 % (11.7-14.2); RDW Standard Deviation 48.9 fL (35.1-46.3); Red Blood Cell Count 4.44 M/mm3 (4.30-5.90); White Blood Cell Count 6.53 K/mm3 (4.00-11.30)
[2019-06-11 21:25] LABS: Alanine Aminotransfer (ALT/SGP 55 U/L (12-78); Albumin, Blood 3.2 g/dL (3.4-5.0); Albumin/Globulin Ratio 0.9 (0.8-1.8); Alk Phos 88 U/L (50-136); Anion Gap 9 mmol/L (6-16); Aspartate Aminotrans (AST/SGOT 47 U/L (12-37); Bilirubin, Total 0.2 mg/dL (0.1-1.0); Blood Urea Nitrogen 16 mg/dL (8-24); Bun/Creatinine Ratio 15.7 (12.0-20.0); CO2, Blood 26 mmol/L (21-32); Calcium, Blood 8.6 mg/dL (8.5-10.1); Chloride, Blood 104 mmol/L (98-108); Creatinine, Blood 1.02 mg/dL (0.60-1.20); Globulin, Blood 3.6 g/dL (2.2-4.0); Glomerular Filtration Rate >60 (60-); Glucose, Blood 226 mg/dL (70-99); Potassium, Blood 3.8 mmol/L (3.5-5.5); Sodium, Blood 139 mmol/L (136-145); Total Protein, Blood 6.8 g/dL (6.4-8.2); Troponin I <0.015 ng/mL (0.000-0.040)
[2019-06-13] MEDS ORDERED: OXYC5 PO (14:13)
[2019-06-13] MEDS ORDERED: DIAZ5 PO (14:14)
[2019-06-13] MEDS ORDERED: Mobic15 MG PO (14:14)
[2019-06-13] MEDS ORDERED: BUSP5 PO (14:16)
[2019-06-13] MEDS ORDERED: INSUGL100V SC (14:17)
== END 2019-06-11 22:48 | disposition home or self-care (01) ==
LOC: ER 19:37
PROVIDERS: Emergency Medicine
DX: R07.89 Other chest pain (principal); Z88.0 Allergy status to penicillin; Z88.5 Allergy status to narcotic agent; Z88.8 Allergy status to other drugs, medicaments and biological substances; Z88.1 Allergy status to other antibiotic agents; Z79.899 Other long term (current) drug therapy; Z79.82 Long term (current) use of aspirin; Z79.4 Long term (current) use of insulin; I25.2 Old myocardial infarction; E11.40 Type 2 diabetes mellitus with diabetic neuropathy, unspecified; E03.9 Hypothyroidism, unspecified; I10 Essential (primary) hypertension; Z87.891 Personal history of nicotine dependence
CPT/HCPCS: 71046; 80053; 84484; 85025; 93005; 93010; 96361; 96374; 96375; 99285-25; J1885; J2405; J7030

== ENCOUNTER 2019-06-15 09:17 | Day surgery (SDC) | payer OTHER ==
[~2019-06-15] VITALS: Ht 175.3 cm; Wt 104.1 kg
[~2019-06-15 09:17] MED LIST changes: +INSUGL100V SC
--- NOTE | 2019-06-15 11:02 | NUR ---
Ambulatory in Day Surgery History, Chart, Medications and Allergies reviewed before start of procedure. Lungs clear T/O to Auscultation. Patient confirms NPO status and agrees with scheduled surgery. Patient States Post-Procedure ride home has been arranged. RIDING HOME WITH [email or web address] CARD STAPLED TO DISCHARGE PAPERWORK WITH NUMBER.
[2019-06-15] MEDS ORDERED: INSUGL100V SC (11:04)
--- NOTE | 2019-06-15 13:57 | NUR ---
PT TO STEP AWAKE, CONVERSING WITH STAFF. C/O BEING HUNGRY - SANDWHICH GIVEN, MILK GIVEN PER HIS REQUEST. PT IS DIABETIC AND WORRIED ABOUT EATING TO KEEP CBG LEVELS UP. RATES PAIN TO LEFT UPPER CHEST 5/10. REQUESTS PAIN MEDICATION.
--- NOTE | 2019-06-15 14:24 | NUR ---
REVIEWED DISCHARGE INSTUCTIONS WITH PATIENT WHO VERBALIZES UNDERSTANDING OF ALL INSTRUCTIONS GIVEN. ABLE TO VERBALIZE SIGNS OF INFECTION, WAYS TO PREVENT INFECTION, CARE AT HOME, MEDICATION REGIMEN, AND FOLLOW UP.
--- NOTE | 2019-06-15 14:42 | NUR ---
PT DC HOME VIA WITH [employer] TO DRIVE HIM. IV DC TIP INTACT. PT DRESSED SELF WITHOUT DIFFICULTY.
== END 2019-06-15 23:01 | disposition home or self-care (01) ==
LOC: ORSCMMR 09:17 → ORD 12:00 → ORSCMMR 12:00
PROVIDERS: Surgery
PROC: 05H633Z Insertion of Infusion Device into Left Subclavian Vein, Percutaneous Approach (ICD-10-PCS; principal; 2019-06-15 10:45)
PROC: B5171ZA Fluoroscopy of Left Subclavian Vein using Low Osmolar Contrast, Guidance (ICD-10-PCS; principal; 2019-06-15 10:45)
DX: C20 Malignant neoplasm of rectum (principal); I10 Essential (primary) hypertension; I25.10 Atherosclerotic heart disease of native coronary artery without angina pectoris; Z79.899 Other long term (current) drug therapy; Z79.82 Long term (current) use of aspirin; E66.9 Obesity, unspecified; Z68.33 Body mass index [BMI] 33.0-33.9, adult
CPT/HCPCS: 77001; 82947; C1788; J1642; J2250; J2405; J2704; J3010; J7120

== ENCOUNTER 2019-08-07 17:58 | Emergency (ER) | payer OTHER ==
[~2019-08-07] VITALS: Ht 177.8 cm; Wt 103.4 kg
[2019-08-07 18:23] LABS: Source, Urine Clean Catch
[2019-08-07 18:27] LABS: Bilirubin, Urine Neg (Neg); Blood, Urine Neg (Neg); Glucose Qualitative, Urine 4+ (Neg); Ketones, Urine 2+ (Neg); Leukocyte Esterase, Urine Neg (Neg); Nitrite, Urine Neg (Neg); Protein, Urine Neg (Neg); Specific Gravity, Urine 1.005 (1.003-1.022); Urobilinogen, Urine NORM (Normal)
[2019-08-07 18:29] LABS: BASOPHILS ABSOLUTE AUTO 0.01 K/mm3 (0.00-0.23); BASOPHILS PERCENT AUTO 1 % (0-2); EOSINOPHILS ABSOLUTE AUTO 0.01 K/mm3 (0.00-0.68); EOSINOPHILS PERCENT AUTO 1 % (0-6); Hematocrit 38.2 % (37.0-53.0); Hemoglobin 12.4 g/dL (13.5-17.5); Mean Corpuscular HGB 27.4 pg (26.0-34.0); Mean Corpuscular HGB Conc 32.5 g/dL (31.5-36.5); Mean Corpuscular Volume 84 fL (80-100); Mean Platelet Volume 10.2 fL (9.1-12.4); Platelet Count 125 K/mm3 (150-400); RDW Coefficient Variation 18.3 % (11.7-14.2); RDW Standard Deviation 54.7 fL (35.1-46.3); Red Blood Cell Count 4.53 M/mm3 (4.30-5.90); White Blood Cell Count 1.68 K/mm3 (4.00-11.30)
[2019-08-07 18:34] LABS: Appearance, Urine Clear (Clear); Color, Urine Yellow (P-Yellow)
[2019-08-07 18:45] LABS: IMMATURE GRAN ABSOLUTE AUTO 0.01 K/mm3 (0.00-0.10); IMMATURE GRAN PERCENT AUTO 1 % (0-1); LYMPHOCYTES ABSOLUTE AUTO 0.13 K/mm3 (0.84-5.20); LYMPHOCYTES PERCENT AUTO 8 % (21-46); MONOCYTES ABSOLUTE AUTO 0.04 K/mm3 (0.16-1.47); MONOCYTES PERCENT AUTO 2 % (4-13); NEUTROPHILS ABSOLUTE AUTO 1.48 K/mm3 (1.96-9.15); NEUTROPHILS PERCENT AUTO 88 % (41-73)
[2019-08-07 18:56] LABS: Alanine Aminotransfer (ALT/SGP 69 U/L (12-78); Albumin, Blood 3.1 g/dL (3.4-5.0); Albumin/Globulin Ratio 0.8 (0.8-1.8); Alk Phos 103 U/L (50-136); Anion Gap 10 mmol/L (6-16); Aspartate Aminotrans (AST/SGOT 67 U/L (12-37); Bilirubin, Total 0.5 mg/dL (0.1-1.0); Blood Urea Nitrogen 14 mg/dL (8-24); Bun/Creatinine Ratio 21.7 (12.0-20.0); CO2, Blood 20 mmol/L (21-32); Calcium, Blood 8.4 mg/dL (8.5-10.1); Chloride, Blood 102 mmol/L (98-108); Creatinine, Blood 0.64 mg/dL (0.60-1.20); Globulin, Blood 3.8 g/dL (2.2-4.0); Glomerular Filtration Rate >60 (60-); Glucose, Blood 620 mg/dL (70-99); Potassium, Blood 4.4 mmol/L (3.5-5.5); Sodium, Blood 132 mmol/L (136-145); Total Protein, Blood 6.9 g/dL (6.4-8.2)
== END 2019-08-07 21:34 | disposition home or self-care (01) ==
LOC: ER 17:58
PROVIDERS: Emergency Medicine
DX: C20 Malignant neoplasm of rectum (principal); E11.65 Type 2 diabetes mellitus with hyperglycemia; Z88.0 Allergy status to penicillin; Z88.5 Allergy status to narcotic agent; Z88.8 Allergy status to other drugs, medicaments and biological substances; Z88.1 Allergy status to other antibiotic agents; Z87.891 Personal history of nicotine dependence; Z79.899 Other long term (current) drug therapy; Z79.82 Long term (current) use of aspirin; Z79.4 Long term (current) use of insulin; I25.2 Old myocardial infarction; I10 Essential (primary) hypertension; E78.5 Hyperlipidemia, unspecified; E11.40 Type 2 diabetes mellitus with diabetic neuropathy, unspecified
CPT/HCPCS: 36415; 71046; 80053; 81003; 82947; 83880; 84484; 85025; 93005; 93010; 99285-25; J1815; J7030

== ENCOUNTER 2019-08-12 15:28 | Emergency (ER) | payer OTHER ==
[~2019-08-12] VITALS: Ht 177.8 cm; Wt 103.4 kg
[2019-08-12] MEDS ORDERED: INSULANPEN SC (16:12)
[2019-08-12 16:16] LABS: BASOPHILS ABSOLUTE AUTO 0.02 K/mm3 (0.00-0.23); BASOPHILS PERCENT AUTO 1 % (0-2); EOSINOPHILS ABSOLUTE AUTO 0.16 K/mm3 (0.00-0.68); EOSINOPHILS PERCENT AUTO 5 % (0-6); Hematocrit 41.5 % (37.0-53.0); Hemoglobin 13.6 g/dL (13.5-17.5); IMMATURE GRAN ABSOLUTE AUTO 0.01 K/mm3 (0.00-0.10); IMMATURE GRAN PERCENT AUTO 0 % (0-1); LYMPHOCYTES ABSOLUTE AUTO 1.32 K/mm3 (0.84-5.20); LYMPHOCYTES PERCENT AUTO 40 % (21-46); MONOCYTES ABSOLUTE AUTO 0.14 K/mm3 (0.16-1.47); MONOCYTES PERCENT AUTO 4 % (4-13); Mean Corpuscular HGB 27.1 pg (26.0-34.0); Mean Corpuscular HGB Conc 32.8 g/dL (31.5-36.5); Mean Corpuscular Volume 83 fL (80-100); Mean Platelet Volume 9.6 fL (9.1-12.4); NEUTROPHILS ABSOLUTE AUTO 1.65 K/mm3 (1.96-9.15); NEUTROPHILS PERCENT AUTO 50 % (41-73); Platelet Count 150 K/mm3 (150-400); RDW Coefficient Variation 17.3 % (11.7-14.2); RDW Standard Deviation 51.4 fL (35.1-46.3); Red Blood Cell Count 5.02 M/mm3 (4.30-5.90)
[2019-08-12] MEDS ORDERED: TAMS.4ER PO (16:16)
[2019-08-12 16:32] LABS: Source, Urine Clean Catch
[2019-08-12 16:34] LABS: Alanine Aminotransfer (ALT/SGP 52 U/L (12-78); Albumin, Blood 3.3 g/dL (3.4-5.0); Albumin/Globulin Ratio 0.9 (0.8-1.8); Alk Phos 104 U/L (50-136); Anion Gap 8 mmol/L (6-16); Aspartate Aminotrans (AST/SGOT 39 U/L (12-37); Bilirubin, Total 0.6 mg/dL (0.1-1.0); Blood Urea Nitrogen 15 mg/dL (8-24); Bun/Creatinine Ratio 22.5 (12.0-20.0); CO2, Blood 24 mmol/L (21-32); Calcium, Blood 8.5 mg/dL (8.5-10.1); Chloride, Blood 100 mmol/L (98-108); Creatinine, Blood 0.67 mg/dL (0.60-1.20); Globulin, Blood 3.8 g/dL (2.2-4.0); Glomerular Filtration Rate >60 (60-); Glucose, Blood 417 mg/dL (70-99); Potassium, Blood 3.7 mmol/L (3.5-5.5); Sodium, Blood 132 mmol/L (136-145); Total Protein, Blood 7.1 g/dL (6.4-8.2)
[2019-08-12 16:51] LABS: Bilirubin, Urine Neg (Neg); Blood, Urine 1+ (Neg); Glucose Qualitative, Urine 4+ (Neg); Ketones, Urine 1+ (Neg); Leukocyte Esterase, Urine 2+ (Neg); Nitrite, Urine Neg (Neg); Protein, Urine Neg (Neg); Specific Gravity, Urine 1.015 (1.003-1.022); Urobilinogen, Urine NORM (Normal)
[2019-08-12 17:16] LABS: Appearance, Urine Clear (Clear); Color, Urine Yellow (P-Yellow)
[2019-08-12 17:18] LABS: Bacteria Few /hpf; Red Blood Cells, Urine Rare /hpf (0-2); Squamous Epithelial Cells Few /hpf (Few)
== END 2019-08-12 19:50 | disposition home or self-care (01) ==
LOC: ER 15:28
PROVIDERS: Physician Assistant
DX: E86.0 Dehydration (principal); R11.2 Nausea with vomiting, unspecified; R19.7 Diarrhea, unspecified; Z88.0 Allergy status to penicillin; Z88.5 Allergy status to narcotic agent; Z88.8 Allergy status to other drugs, medicaments and biological substances; Z88.1 Allergy status to other antibiotic agents; Z79.899 Other long term (current) drug therapy; Z79.4 Long term (current) use of insulin; Z79.82 Long term (current) use of aspirin; I25.2 Old myocardial infarction; E11.9 Type 2 diabetes mellitus without complications; I10 Essential (primary) hypertension; E03.9 Hypothyroidism, unspecified; Z87.891 Personal history of nicotine dependence; Z85.048 Personal history of other malignant neoplasm of rectum, rectosigmoid junction, and anus
CPT/HCPCS: 36415; 71045; 71046; 80053; 81001; 83605; 85025; 87086; 93005; 93010; 96361; 96374; 96375; 99284-25; J2405; J7120

== ENCOUNTER 2019-09-13 14:41 | Emergency (ER) | payer OTHER ==
[~2019-09-13] VITALS: Ht 177.8 cm; Wt 98.0 kg
[~2019-09-13 14:41] MED LIST changes: +INSULANPEN SC
[2019-09-13] MEDS ORDERED: KETO10 PO (16:57)
== END 2019-09-13 17:09 | disposition home or self-care (01) ==
LOC: ER 14:41
DX: S16.1XXA Strain of muscle, fascia and tendon at neck level, initial encounter (principal); I24.9 Acute ischemic heart disease, unspecified; E11.9 Type 2 diabetes mellitus without complications; I10 Essential (primary) hypertension; E03.9 Hypothyroidism, unspecified; Z85.048 Personal history of other malignant neoplasm of rectum, rectosigmoid junction, and anus; Z87.891 Personal history of nicotine dependence; Z88.0 Allergy status to penicillin; Z88.5 Allergy status to narcotic agent; Z88.8 Allergy status to other drugs, medicaments and biological substances; Z88.1 Allergy status to other antibiotic agents; Z91.011 Allergy to milk products; Z79.899 Other long term (current) drug therapy; Z79.4 Long term (current) use of insulin; Z79.82 Long term (current) use of aspirin; W18.39XA Other fall on same level, initial encounter
CPT/HCPCS: 72125; 96372; 99284-25; J1885

== ENCOUNTER 2019-11-05 18:06 | Emergency (ER) | payer OTHER ==
[~2019-11-05] VITALS: Ht 177.8 cm; Wt 98.0 kg
[2019-11-05 18:53] LABS: BASOPHILS ABSOLUTE AUTO 0.04 K/mm3 (0.00-0.23); BASOPHILS PERCENT AUTO 1 % (0-2); EOSINOPHILS ABSOLUTE AUTO 0.29 K/mm3 (0.00-0.68); EOSINOPHILS PERCENT AUTO 6 % (0-6); Hemoglobin 13.1 g/dL (13.5-17.5); IMMATURE GRAN ABSOLUTE AUTO 0.03 K/mm3 (0.00-0.10); IMMATURE GRAN PERCENT AUTO 1 % (0-1); LYMPHOCYTES ABSOLUTE AUTO 1.47 K/mm3 (0.84-5.20); LYMPHOCYTES PERCENT AUTO 28 % (21-46); MONOCYTES ABSOLUTE AUTO 0.29 K/mm3 (0.16-1.47); MONOCYTES PERCENT AUTO 6 % (4-13); Mean Corpuscular HGB 30.3 pg (26.0-34.0); Mean Corpuscular HGB Conc 33.6 g/dL (31.5-36.5); Mean Corpuscular Volume 90 fL (80-100); Mean Platelet Volume 9.9 fL (9.1-12.4); NEUTROPHILS ABSOLUTE AUTO 3.06 K/mm3 (1.96-9.15); NEUTROPHILS PERCENT AUTO 59 % (41-73); Platelet Count 103 K/mm3 (150-400); RDW Coefficient Variation 15.3 % (11.7-14.2); RDW Standard Deviation 50.7 fL (35.1-46.3); Red Blood Cell Count 4.32 M/mm3 (4.30-5.90); White Blood Cell Count 5.18 K/mm3 (4.00-11.30)
[2019-11-05 19:13] LABS: Alanine Aminotransfer (ALT/SGP 63 U/L (12-78); Albumin, Blood 3.5 g/dL (3.4-5.0); Albumin/Globulin Ratio 0.9 (0.8-1.8); Alk Phos 140 U/L (50-136); Anion Gap 6 mmol/L (6-16); Aspartate Aminotrans (AST/SGOT 64 U/L (12-37); Bilirubin, Total 0.5 mg/dL (0.1-1.0); Blood Urea Nitrogen 18 mg/dL (8-24); Bun/Creatinine Ratio 22.7 (12.0-20.0); CO2, Blood 27 mmol/L (21-32); Calcium, Blood 8.5 mg/dL (8.5-10.1); Chloride, Blood 102 mmol/L (98-108); Creatinine, Blood 0.79 mg/dL (0.60-1.20); Globulin, Blood 3.7 g/dL (2.2-4.0); Glomerular Filtration Rate >60 (60-); Glucose, Blood 275 mg/dL (70-99); Potassium, Blood 3.8 mmol/L (3.5-5.5); Sodium, Blood 135 mmol/L (136-145); Total Protein, Blood 7.2 g/dL (6.4-8.2); Troponin I <0.015 ng/mL (0.000-0.040)
== END 2019-11-05 23:26 | disposition home or self-care (01) ==
LOC: ER 18:06
PROVIDERS: Emergency Medicine
DX: R07.9 Chest pain, unspecified (principal); I25.10 Atherosclerotic heart disease of native coronary artery without angina pectoris; R42 Dizziness and giddiness; E11.40 Type 2 diabetes mellitus with diabetic neuropathy, unspecified; I25.2 Old myocardial infarction; I10 Essential (primary) hypertension; Z88.0 Allergy status to penicillin; Z88.5 Allergy status to narcotic agent; Z88.8 Allergy status to other drugs, medicaments and biological substances; Z79.899 Other long term (current) drug therapy; Z79.4 Long term (current) use of insulin; Z87.891 Personal history of nicotine dependence
CPT/HCPCS: 36415; 71046; 80053; 83690; 84484; 85025; 93005; 93010; 99284-25; J7030

== ENCOUNTER 2019-12-23 22:43 | Emergency (ER) | payer OTHER ==
[~2019-12-23] VITALS: Ht 177.8 cm; Wt 98.0 kg
[2019-12-24] MEDS ORDERED: CYCL10 PO (00:36)
[2019-12-24] MEDS ORDERED: LIDO700A20 TOP (00:36)
[2019-12-24] MEDS ORDERED: IBUP600 PO (00:36)
== END 2019-12-24 01:18 | disposition home or self-care (01) ==
LOC: ER 22:43
DX: S30.0XXA Contusion of lower back and pelvis, initial encounter (principal); W19.XXXA Unspecified fall, initial encounter; Z88.0 Allergy status to penicillin; Z88.5 Allergy status to narcotic agent; Z88.1 Allergy status to other antibiotic agents; Z88.8 Allergy status to other drugs, medicaments and biological substances; Z79.899 Other long term (current) drug therapy; Z79.82 Long term (current) use of aspirin; Z79.4 Long term (current) use of insulin; I25.2 Old myocardial infarction; E11.40 Type 2 diabetes mellitus with diabetic neuropathy, unspecified; E03.9 Hypothyroidism, unspecified; I10 Essential (primary) hypertension; Z87.891 Personal history of nicotine dependence
CPT/HCPCS: 72100; 96374; 99283-25; J1885

== ENCOUNTER 2020-05-11 20:43 | Observation (INO) | payer OTHER ==
[~2020-05-11] VITALS: Ht 177.8 cm; Wt 90.7 kg
[~2020-05-11 20:43] MED LIST changes: +LIDO700A20 TOP
[2020-05-11 21:04] LABS: BASOPHILS ABSOLUTE AUTO 0.08 K/mm3 (0.00-0.23); BASOPHILS PERCENT AUTO 1 % (0-2); EOSINOPHILS ABSOLUTE AUTO 0.89 K/mm3 (0.00-0.68); EOSINOPHILS PERCENT AUTO 12 % (0-6); Hematocrit 41.9 % (37.0-53.0); Hemoglobin 14.4 g/dL (13.5-17.5); IMMATURE GRAN ABSOLUTE AUTO 0.01 K/mm3 (0.00-0.10); IMMATURE GRAN PERCENT AUTO 0 % (0-1); LYMPHOCYTES ABSOLUTE AUTO 2.69 K/mm3 (0.84-5.20); LYMPHOCYTES PERCENT AUTO 36 % (21-46); MONOCYTES ABSOLUTE AUTO 0.41 K/mm3 (0.16-1.47); MONOCYTES PERCENT AUTO 6 % (4-13); Mean Corpuscular HGB 31.2 pg (26.0-34.0); Mean Corpuscular HGB Conc 34.4 g/dL (31.5-36.5); Mean Corpuscular Volume 91 fL (80-100); Mean Platelet Volume 9.4 fL (9.1-12.4); NEUTROPHILS PERCENT AUTO 45 % (41-73); Platelet Count 146 K/mm3 (150-400); RDW Coefficient Variation 12.9 % (11.7-14.2); RDW Standard Deviation 42.7 fL (35.1-46.3); Red Blood Cell Count 4.61 M/mm3 (4.30-5.90); White Blood Cell Count 7.48 K/mm3 (4.00-11.30)
[2020-05-11 21:23] LABS: Alanine Aminotransfer (ALT/SGP 33 U/L (12-78); Albumin, Blood 3.5 g/dL (3.4-5.0); Albumin/Globulin Ratio 0.9 (0.8-1.8); Alk Phos 111 U/L (50-136); Anion Gap 7 mmol/L (6-16); Aspartate Aminotrans (AST/SGOT 22 U/L (12-37); Bilirubin, Total 0.4 mg/dL (0.1-1.0); Blood Urea Nitrogen 11 mg/dL (8-24); Bun/Creatinine Ratio 10.7 (12.0-20.0); CO2, Blood 25 mmol/L (21-32); Calcium, Blood 8.2 mg/dL (8.5-10.1); Chloride, Blood 105 mmol/L (98-108); Creatinine, Blood 1.03 mg/dL (0.60-1.20); Globulin, Blood 3.7 g/dL (2.2-4.0); Glomerular Filtration Rate >60 (60-); Glucose, Blood 280 mg/dL (70-99); Sodium, Blood 137 mmol/L (136-145); Total Protein, Blood 7.2 g/dL (6.4-8.2); Troponin I <0.015 ng/mL (0.000-0.040)
[2020-05-12 06:47] LABS: Anion Gap 5 mmol/L (6-16); Blood Urea Nitrogen 11 mg/dL (8-24); Bun/Creatinine Ratio 12.4 (12.0-20.0); CO2, Blood 29 mmol/L (21-32); Calcium, Blood 8.1 mg/dL (8.5-10.1); Chloride, Blood 104 mmol/L (98-108); Creatinine, Blood 0.89 mg/dL (0.60-1.20); Glomerular Filtration Rate >60 (60-); Glucose, Blood 266 mg/dL (70-99); Potassium, Blood 4.1 mmol/L (3.5-5.5); Sodium, Blood 138 mmol/L (136-145); Troponin I <0.015 ng/mL (0.000-0.040)
== END 2020-05-12 10:29 | disposition left against medical advice (07) ==
LOC: ER 20:43 → ERHOLD 20:44
PROVIDERS: Emergency Medicine; ADMIT Internal Medicine
DX: R07.9 Chest pain, unspecified (principal); Z79.4 Long term (current) use of insulin; I25.10 Atherosclerotic heart disease of native coronary artery without angina pectoris; Z95.5 Presence of coronary angioplasty implant and graft; Z88.5 Allergy status to narcotic agent; Z88.8 Allergy status to other drugs, medicaments and biological substances; Z88.1 Allergy status to other antibiotic agents; Z91.011 Allergy to milk products; Z88.0 Allergy status to penicillin; E11.42 Type 2 diabetes mellitus with diabetic polyneuropathy; E66.01 Morbid (severe) obesity due to excess calories; E03.9 Hypothyroidism, unspecified; E78.5 Hyperlipidemia, unspecified; N40.0 Benign prostatic hyperplasia without lower urinary tract symptoms; K21.9 Gastro-esophageal reflux disease without esophagitis; Z79.82 Long term (current) use of aspirin; Z87.891 Personal history of nicotine dependence; Z68.28 Body mass index [BMI] 28.0-28.9, adult
CPT/HCPCS: 36415; 71046; 80048; 80053; 82947; 83880; 84484; 85025; 93005; 93010; 99285-25; A9270-GY; G0378; J1650; J2270; J2405

== ENCOUNTER 2020-05-21 09:33 | Emergency (ER) | payer OTHER ==
[~2020-05-21] VITALS: Ht 177.8 cm; Wt 103.4 kg
[2020-05-21 10:22] LABS: BASOPHILS ABSOLUTE AUTO 0.07 K/mm3 (0.00-0.23); BASOPHILS PERCENT AUTO 1 % (0-2); EOSINOPHILS ABSOLUTE AUTO 0.87 K/mm3 (0.00-0.68); EOSINOPHILS PERCENT AUTO 14 % (0-6); Hematocrit 42.4 % (37.0-53.0); Hemoglobin 14.4 g/dL (13.5-17.5); IMMATURE GRAN ABSOLUTE AUTO 0.01 K/mm3 (0.00-0.10); IMMATURE GRAN PERCENT AUTO 0 % (0-1); LYMPHOCYTES PERCENT AUTO 30 % (21-46); MONOCYTES ABSOLUTE AUTO 0.39 K/mm3 (0.16-1.47); MONOCYTES PERCENT AUTO 6 % (4-13); Mean Corpuscular HGB 31.2 pg (26.0-34.0); Mean Corpuscular Volume 92 fL (80-100); Mean Platelet Volume 9.7 fL (9.1-12.4); NEUTROPHILS ABSOLUTE AUTO 2.95 K/mm3 (1.96-9.15); NEUTROPHILS PERCENT AUTO 48 % (41-73); Platelet Count 162 K/mm3 (150-400); RDW Standard Deviation 43.7 fL (35.1-46.3); Red Blood Cell Count 4.62 M/mm3 (4.30-5.90); White Blood Cell Count 6.09 K/mm3 (4.00-11.30)
[2020-05-21 10:37] LABS: International Normalized Ratio 0.98; Prothrombin Time Results 10.5 Sec (9.7-11.5)
[2020-05-21 10:43] LABS: Alanine Aminotransfer (ALT/SGP 34 U/L (12-78); Albumin, Blood 3.5 g/dL (3.4-5.0); Alk Phos 109 U/L (50-136); Anion Gap 6 mmol/L (6-16); Aspartate Aminotrans (AST/SGOT 37 U/L (12-37); Bilirubin, Total 0.4 mg/dL (0.1-1.0); Blood Urea Nitrogen 19 mg/dL (8-24); Bun/Creatinine Ratio 19.6 (12.0-20.0); CO2, Blood 27 mmol/L (21-32); Calcium, Blood 8.7 mg/dL (8.5-10.1); Chloride, Blood 105 mmol/L (98-108); Creatinine, Blood 0.97 mg/dL (0.60-1.20); Globulin, Blood 3.6 g/dL (2.2-4.0); Glomerular Filtration Rate >60 (60-); Glucose, Blood 348 mg/dL (70-99); Sodium, Blood 138 mmol/L (136-145); Total Protein, Blood 7.1 g/dL (6.4-8.2)
[2020-05-21 10:54] LABS: Source, Urine Clean Catch
[2020-05-21 10:59] LABS: Bilirubin, Urine Neg (Neg); Blood, Urine Neg (Neg); Glucose Qualitative, Urine 4+ (Neg); Ketones, Urine Neg (Neg); Leukocyte Esterase, Urine Neg (Neg); Nitrite, Urine Neg (Neg); Protein, Urine 1+ (Neg); Urobilinogen, Urine 1+ (Normal)
[2020-05-21 11:25] LABS: Appearance, Urine Clear (Clear); Color, Urine Yellow (P-Yellow)
== END 2020-05-21 13:05 | disposition home or self-care (01) ==
LOC: ER 09:33
PROVIDERS: Physician Assistant
DX: E11.65 Type 2 diabetes mellitus with hyperglycemia (principal); E86.0 Dehydration; Z88.0 Allergy status to penicillin; Z88.5 Allergy status to narcotic agent; Z88.8 Allergy status to other drugs, medicaments and biological substances; Z91.011 Allergy to milk products; Z79.899 Other long term (current) drug therapy; Z79.82 Long term (current) use of aspirin; Z79.4 Long term (current) use of insulin; I25.2 Old myocardial infarction; E11.40 Type 2 diabetes mellitus with diabetic neuropathy, unspecified; E03.9 Hypothyroidism, unspecified; I10 Essential (primary) hypertension; Z87.891 Personal history of nicotine dependence
CPT/HCPCS: 36415; 70450; 80053; 85025; 85610; 93005; 93010; 96374; 99284-25; J1885; Q0163

== ENCOUNTER 2020-09-15 21:11 | Emergency (ER) | payer OTHER ==
[~2020-09-15] VITALS: Ht 177.8 cm; Wt 98.9 kg
[~2020-09-15 21:11] MED LIST changes: +Aspirin325 MG PO; +BUPRENORPHN-NA1 EAC2 SL; +DULOXETINE HCL60 M1 PO; +GLUCOPHAGE1000 M1 PO; +IBU800 M1 PO; -Metformin HCl1000 MG PO
[2020-09-15 21:40] LABS: BASOPHILS ABSOLUTE AUTO 0.09 K/mm3 (0.00-0.23); BASOPHILS PERCENT AUTO 1 % (0-2); EOSINOPHILS ABSOLUTE AUTO 0.81 K/mm3 (0.00-0.68); EOSINOPHILS PERCENT AUTO 10 % (0-6); Hematocrit 44.4 % (37.0-53.0); Hemoglobin 15.4 g/dL (13.5-17.5); IMMATURE GRAN ABSOLUTE AUTO 0.02 K/mm3 (0.00-0.10); IMMATURE GRAN PERCENT AUTO 0 % (0-1); LYMPHOCYTES ABSOLUTE AUTO 2.69 K/mm3 (0.84-5.20); LYMPHOCYTES PERCENT AUTO 32 % (21-46); MONOCYTES ABSOLUTE AUTO 0.44 K/mm3 (0.16-1.47); MONOCYTES PERCENT AUTO 5 % (4-13); Mean Corpuscular HGB 31.7 pg (26.0-34.0); Mean Corpuscular HGB Conc 34.7 g/dL (31.5-36.5); Mean Corpuscular Volume 91 fL (80-100); Mean Platelet Volume 9.3 fL (9.1-12.4); NEUTROPHILS ABSOLUTE AUTO 4.24 K/mm3 (1.96-9.15); NEUTROPHILS PERCENT AUTO 51 % (41-73); Platelet Count 209 K/mm3 (150-400); RDW Coefficient Variation 12.5 % (11.7-14.2); RDW Standard Deviation 41.9 fL (35.1-46.3); Red Blood Cell Count 4.86 M/mm3 (4.30-5.90); White Blood Cell Count 8.29 K/mm3 (4.00-11.30)
[2020-09-15 22:03] LABS: Alanine Aminotransfer (ALT/SGP 36 U/L (12-78); Albumin, Blood 3.4 g/dL (3.4-5.0); Albumin/Globulin Ratio 0.9 (0.8-1.8); Alk Phos 125 U/L (50-136); Anion Gap 6 mmol/L (6-16); Aspartate Aminotrans (AST/SGOT 40 U/L (12-37); Bilirubin, Total 0.5 mg/dL (0.1-1.0); Blood Urea Nitrogen 16 mg/dL (8-24); Bun/Creatinine Ratio 20.4 (12.0-20.0); CO2, Blood 26 mmol/L (21-32); Calcium, Blood 9.1 mg/dL (8.5-10.1); Chloride, Blood 106 mmol/L (98-108); Creatinine, Blood 0.78 mg/dL (0.60-1.20); Globulin, Blood 3.9 g/dL (2.2-4.0); Glomerular Filtration Rate >60 (60-); Glucose, Blood 246 mg/dL (70-99); Potassium, Blood 3.6 mmol/L (3.5-5.5); Sodium, Blood 138 mmol/L (136-145); Total Protein, Blood 7.3 g/dL (6.4-8.2); Troponin I <0.015 ng/mL (0.000-0.040)
== END 2020-09-16 01:38 | disposition home or self-care (01) ==
LOC: ER 21:11
PROVIDERS: Emergency Medicine
DX: R07.9 Chest pain, unspecified (principal); R06.02 Shortness of breath; R11.2 Nausea with vomiting, unspecified; Z79.899 Other long term (current) drug therapy; Z79.4 Long term (current) use of insulin; Z79.82 Long term (current) use of aspirin; Z88.0 Allergy status to penicillin; Z88.5 Allergy status to narcotic agent; Z88.1 Allergy status to other antibiotic agents; Z88.8 Allergy status to other drugs, medicaments and biological substances
CPT/HCPCS: 71046; 80053; 83690; 83880; 84484; 85025; 93005; 93010; 96374; 96375; 96376; 99285-25; J2270; J2405

== ENCOUNTER 2020-11-24 03:19 | Emergency (ER) | payer OTHER ==
[~2020-11-24] VITALS: Ht 177.8 cm; Wt 98.4 kg
[~2020-11-24 03:19] MED LIST changes: +Aspir 8181 MG PO; -BUPRENORPHN-NA1 EAC2 SL; -GLUCOPHAGE1000 M1 PO; -IBU800 M1 PO; -Lipitor20 MG PO; +MOBIC15 MG PO; -Neurontin600 MG PO; -PANT40 PO
[2020-11-24 03:30] LABS: Source, Urine Voided
[2020-11-24 03:32] LABS: Bilirubin, Urine Neg (Neg); Blood, Urine Neg (Neg); Glucose Qualitative, Urine 1+ (Neg); Ketones, Urine Neg (Neg); Leukocyte Esterase, Urine Neg (Neg); Nitrite, Urine Neg (Neg); Protein, Urine Neg (Neg); Urobilinogen, Urine NORM (Normal)
[2020-11-24 03:35] LABS: BASOPHILS ABSOLUTE AUTO 0.08 K/mm3 (0.00-0.23); BASOPHILS PERCENT AUTO 1 % (0-2); EOSINOPHILS ABSOLUTE AUTO 0.68 K/mm3 (0.00-0.68); EOSINOPHILS PERCENT AUTO 9 % (0-6); Hematocrit 45.6 % (37.0-53.0); Hemoglobin 15.5 g/dL (13.5-17.5); IMMATURE GRAN ABSOLUTE AUTO 0.01 K/mm3 (0.00-0.10); IMMATURE GRAN PERCENT AUTO 0 % (0-1); LYMPHOCYTES ABSOLUTE AUTO 2.79 K/mm3 (0.84-5.20); LYMPHOCYTES PERCENT AUTO 36 % (21-46); MONOCYTES ABSOLUTE AUTO 0.53 K/mm3 (0.16-1.47); MONOCYTES PERCENT AUTO 7 % (4-13); Mean Corpuscular HGB 31.6 pg (26.0-34.0); Mean Corpuscular Volume 93 fL (80-100); Mean Platelet Volume 9.1 fL (9.1-12.4); NEUTROPHILS ABSOLUTE AUTO 3.57 K/mm3 (1.96-9.15); NEUTROPHILS PERCENT AUTO 47 % (41-73); Platelet Count 169 K/mm3 (150-400); RDW Coefficient Variation 12.6 % (11.7-14.2); RDW Standard Deviation 43.5 fL (35.1-46.3); White Blood Cell Count 7.66 K/mm3 (4.00-11.30)
[2020-11-24 03:39] LABS: Appearance, Urine Clear (Clear); Color, Urine Yellow (P-Yellow)
[2020-11-24 03:55] LABS: Alanine Aminotransfer (ALT/SGP 43 U/L (12-78); Albumin, Blood 3.6 g/dL (3.4-5.0); Albumin/Globulin Ratio 0.9 (0.8-1.8); Alk Phos 116 U/L (50-136); Anion Gap 8 mmol/L (6-16); Aspartate Aminotrans (AST/SGOT 28 U/L (12-37); Bilirubin, Total 0.4 mg/dL (0.1-1.0); Blood Urea Nitrogen 20 mg/dL (8-24); Bun/Creatinine Ratio 26.6 (12.0-20.0); CO2, Blood 25 mmol/L (21-32); Calcium, Blood 8.2 mg/dL (8.5-10.1); Chloride, Blood 106 mmol/L (98-108); Creatinine, Blood 0.75 mg/dL (0.60-1.20); Globulin, Blood 3.9 g/dL (2.2-4.0); Glomerular Filtration Rate >60 (60-); Glucose, Blood 211 mg/dL (70-99); Potassium, Blood 3.5 mmol/L (3.5-5.5); Sodium, Blood 139 mmol/L (136-145); Total Protein, Blood 7.5 g/dL (6.4-8.2); Troponin I <0.015 ng/mL (0.000-0.040)
[2021-02-11] MEDS ORDERED: BASAGLAR K100 UNIT/8 SC (14:06)
[2021-02-11] MEDS ORDERED: ATOR20 PO (14:06)
[2021-02-11] MEDS ORDERED: CITALOPRAM HBR PO (14:06)
[2021-02-11] MEDS ORDERED: DIAZ5 PO (14:07)
[2021-02-11] MEDS ORDERED: NEURONTIN600 MG PO (14:07)
[2021-02-11] MEDS ORDERED: HYDHCL25 PO ×2 (14:07)
[2021-02-11] MEDS ORDERED: EUTHYROX88 MCG PO (14:08)
[2021-02-11] MEDS ORDERED: Isosorbide Mono30 MG PO (14:08)
[2021-02-11] MEDS ORDERED: LOSA50 PO (14:08)
[2021-02-11] MEDS ORDERED: ALLERCLEAR10 MG PO (14:08)
[2021-02-11] MEDS ORDERED: MIRT30ST PO (14:09)
[2021-02-11] MEDS ORDERED: KAPSPARGO SPRI100 MG PO (14:09)
[2021-02-11] MEDS ORDERED: PREG100 PO (14:09)
[2021-02-11] MEDS ORDERED: GLUCOPHAGE1000 M1 PO (14:09)
[2021-02-11] MEDS ORDERED: OMEP20ER PO (14:10)
[2021-02-11] MEDS ORDERED: NITR.4SL SL (14:10)
[2021-02-11] MEDS ORDERED: NOVOLOG FL100 UNIT/3 SC (14:10)
[2021-02-11] MEDS ORDERED: PROAIR DIGIHAL90 MCG INH (14:11)
[2021-02-11] MEDS ORDERED: TAMS.4ER PO (14:11)
[2021-02-11] MEDS ORDERED: PANT40 PO (14:11)
== END 2020-11-24 04:58 | disposition home or self-care (01) ==
LOC: ER 03:19
PROVIDERS: Emergency Medicine
DX: R10.31 Right lower quadrant pain (principal); Z88.0 Allergy status to penicillin; Z88.5 Allergy status to narcotic agent; Z88.1 Allergy status to other antibiotic agents; Z79.899 Other long term (current) drug therapy; Z79.84 Long term (current) use of oral hypoglycemic drugs
CPT/HCPCS: 74177; 80053; 81003; 83605; 83690; 84484; 85025; 93005; 93010; 99284-25; A9270; Q9967

== ENCOUNTER 2020-12-03 10:03 | Day surgery (SDC) | payer OTHER ==
[~2020-12-03] VITALS: Ht 182.9 cm; Wt 102.3 kg
[2021-02-11] MEDS ORDERED: ATOR20 PO (14:06)
[2021-02-11] MEDS ORDERED: CITALOPRAM HBR PO (14:06)
[2021-02-11] MEDS ORDERED: BASAGLAR K100 UNIT/8 SC (14:06)
[2021-02-11] MEDS ORDERED: NEURONTIN600 MG PO (14:07)
[2021-02-11] MEDS ORDERED: DIAZ5 PO (14:07)
[2021-02-11] MEDS ORDERED: HYDHCL25 PO ×2 (14:07)
[2021-02-11] MEDS ORDERED: Isosorbide Mono30 MG PO (14:08)
[2021-02-11] MEDS ORDERED: LOSA50 PO (14:08)
[2021-02-11] MEDS ORDERED: ALLERCLEAR10 MG PO (14:08)
[2021-02-11] MEDS ORDERED: EUTHYROX88 MCG PO (14:08)
[2021-02-11] MEDS ORDERED: MIRT30ST PO (14:09)
[2021-02-11] MEDS ORDERED: PREG100 PO (14:09)
[2021-02-11] MEDS ORDERED: KAPSPARGO SPRI100 MG PO (14:09)
[2021-02-11] MEDS ORDERED: GLUCOPHAGE1000 M1 PO (14:09)
[2021-02-11] MEDS ORDERED: NITR.4SL SL (14:10)
[2021-02-11] MEDS ORDERED: NOVOLOG FL100 UNIT/3 SC (14:10)
[2021-02-11] MEDS ORDERED: OMEP20ER PO (14:10)
[2021-02-11] MEDS ORDERED: TAMS.4ER PO (14:11)
[2021-02-11] MEDS ORDERED: PANT40 PO (14:11)
[2021-02-11] MEDS ORDERED: PROAIR DIGIHAL90 MCG INH (14:11)
== END 2020-12-03 14:59 | disposition home or self-care (01) ==
LOC: ORSCSDS 10:03
PROVIDERS: Orthopaedic Surgery
PROC: 01N40ZZ Release Ulnar Nerve, Open Approach (ICD-10-PCS; principal; 2020-12-03 11:30)
PROC: 01N54ZZ Release Median Nerve, Percutaneous Endoscopic Approach (ICD-10-PCS; principal; 2020-12-03 11:30)
DX: G56.02 Carpal tunnel syndrome, left upper limb (principal); G56.22 Lesion of ulnar nerve, left upper limb; I10 Essential (primary) hypertension; I25.10 Atherosclerotic heart disease of native coronary artery without angina pectoris; E11.9 Type 2 diabetes mellitus without complications; E78.5 Hyperlipidemia, unspecified; E03.9 Hypothyroidism, unspecified; Z79.84 Long term (current) use of oral hypoglycemic drugs; Z79.82 Long term (current) use of aspirin; Z79.899 Other long term (current) drug therapy
CPT/HCPCS: 82947; J1100; J1885; J2250; J2405; J2704; J2765; J3010; J7120

== ENCOUNTER 2021-01-02 17:18 | Inpatient (IN) | payer OTHER ==
[~2021-01-02] VITALS: Ht 177.8 cm; Wt 103.1 kg
[2021-01-02 17:52] LABS: BASOPHILS ABSOLUTE AUTO 0.06 K/mm3 (0.00-0.23); BASOPHILS PERCENT AUTO 1 % (0-2); EOSINOPHILS ABSOLUTE AUTO 0.38 K/mm3 (0.00-0.68); EOSINOPHILS PERCENT AUTO 6 % (0-6); Hematocrit 43.1 % (37.0-53.0); Hemoglobin 15.2 g/dL (13.5-17.5); IMMATURE GRAN ABSOLUTE AUTO 0.01 K/mm3 (0.00-0.10); IMMATURE GRAN PERCENT AUTO 0 % (0-1); LYMPHOCYTES ABSOLUTE AUTO 1.75 K/mm3 (0.84-5.20); LYMPHOCYTES PERCENT AUTO 27 % (21-46); MONOCYTES ABSOLUTE AUTO 0.45 K/mm3 (0.16-1.47); MONOCYTES PERCENT AUTO 7 % (4-13); Mean Corpuscular HGB 31.8 pg (26.0-34.0); Mean Corpuscular HGB Conc 35.3 g/dL (31.5-36.5); Mean Corpuscular Volume 90 fL (80-100); Mean Platelet Volume 9.8 fL (9.1-12.4); NEUTROPHILS ABSOLUTE AUTO 3.73 K/mm3 (1.96-9.15); NEUTROPHILS PERCENT AUTO 58 % (41-73); Platelet Count 179 K/mm3 (150-400); RDW Coefficient Variation 12.5 % (11.7-14.2); RDW Standard Deviation 40.9 fL (35.1-46.3); Red Blood Cell Count 4.78 M/mm3 (4.30-5.90); White Blood Cell Count 6.38 K/mm3 (4.00-11.30)
[2021-01-02 18:08] LABS: Alanine Aminotransfer (ALT/SGP 34 U/L (12-78); Albumin, Blood 3.6 g/dL (3.4-5.0); Albumin/Globulin Ratio 0.9 (0.8-1.8); Alk Phos 109 U/L (50-136); Anion Gap 6 mmol/L (6-16); Aspartate Aminotrans (AST/SGOT 34 U/L (12-37); Bilirubin, Total 1.1 mg/dL (0.1-1.0); Blood Urea Nitrogen 14 mg/dL (8-24); Bun/Creatinine Ratio 18.9 (12.0-20.0); CO2, Blood 29 mmol/L (21-32); Calcium, Blood 8.9 mg/dL (8.5-10.1); Chloride, Blood 103 mmol/L (98-108); Creatinine, Blood 0.74 mg/dL (0.60-1.20); Globulin, Blood 3.9 g/dL (2.2-4.0); Glomerular Filtration Rate >60 (60-); Glucose, Blood 263 mg/dL (70-99); Potassium, Blood 4.2 mmol/L (3.5-5.5); Sodium, Blood 138 mmol/L (136-145); Total Protein, Blood 7.5 g/dL (6.4-8.2); Troponin I <0.015 ng/mL (0.000-0.040)
[2021-01-02] MEDS ORDERED: BUPRENORPHN-NA1 EAC2 SL (19:56)
[2021-01-02] MEDS ORDERED: Loratadine10 MG PO (19:57)
[2021-01-02] MEDS ORDERED: GLIP5ER PO (19:57)
[2021-01-02] MEDS ORDERED: ISOSORBIDE MONO60 MG PO (19:58)
[2021-01-02] MEDS ORDERED: Neurontin600 MG PO (19:59)
[2021-01-02] MEDS ORDERED: DIAZ5 PO (19:59)
[2021-01-02] MEDS ORDERED: MIRT30 PO (19:59)
[2021-01-02] MEDS ORDERED: PANT40 PO (19:59)
[2021-01-02] MEDS ORDERED: Lipitor20 MG PO (20:00)
[2021-01-02] MEDS ORDERED: IBU800 M1 PO (20:00)
[2021-01-02] MEDS ORDERED: TAMS.4ER PO (20:00)
[2021-01-02] MEDS ORDERED: LOSA50 PO (20:00)
[2021-01-02] MEDS ORDERED: GLUCOPHAGE1000 M1 PO (20:00)
[2021-01-02] MEDS ORDERED: BASAGLAR K100 UNIT/5 SC (20:01)
[2021-01-02] MEDS ORDERED: INSULIN LI100 UNIT/6 SC (20:02)
[2021-01-02 21:15] LABS: D-Dimer, Quantitative 0.41 mg/L FEU (0.00-0.52)
[2021-01-03 01:29] LABS: BASOPHILS ABSOLUTE AUTO 0.08 K/mm3 (0.00-0.23); BASOPHILS PERCENT AUTO 1 % (0-2); EOSINOPHILS PERCENT AUTO 7 % (0-6); Hematocrit 43.2 % (37.0-53.0); Hemoglobin 15.3 g/dL (13.5-17.5); IMMATURE GRAN ABSOLUTE AUTO 0.01 K/mm3 (0.00-0.10); IMMATURE GRAN PERCENT AUTO 0 % (0-1); LYMPHOCYTES ABSOLUTE AUTO 2.38 K/mm3 (0.84-5.20); LYMPHOCYTES PERCENT AUTO 35 % (21-46); MONOCYTES ABSOLUTE AUTO 0.56 K/mm3 (0.16-1.47); MONOCYTES PERCENT AUTO 8 % (4-13); Mean Corpuscular HGB 32.1 pg (26.0-34.0); Mean Corpuscular HGB Conc 35.4 g/dL (31.5-36.5); Mean Corpuscular Volume 91 fL (80-100); Mean Platelet Volume 9.4 fL (9.1-12.4); NEUTROPHILS ABSOLUTE AUTO 3.29 K/mm3 (1.96-9.15); NEUTROPHILS PERCENT AUTO 48 % (41-73); Platelet Count 169 K/mm3 (150-400); RDW Coefficient Variation 12.5 % (11.7-14.2); RDW Standard Deviation 41.4 fL (35.1-46.3); Red Blood Cell Count 4.77 M/mm3 (4.30-5.90); White Blood Cell Count 6.82 K/mm3 (4.00-11.30)
[2021-01-03 01:46] LABS: Anion Gap 6 mmol/L (6-16); Blood Urea Nitrogen 16 mg/dL (8-24); Bun/Creatinine Ratio 24.1 (12.0-20.0); CO2, Blood 29 mmol/L (21-32); Calcium, Blood 8.9 mg/dL (8.5-10.1); Chloride, Blood 104 mmol/L (98-108); Creatinine, Blood 0.66 mg/dL (0.60-1.20); Glomerular Filtration Rate >60 (60-); Glucose, Blood 220 mg/dL (70-99); Potassium, Blood 3.9 mmol/L (3.5-5.5); Sodium, Blood 139 mmol/L (136-145)
--- NOTE | 2021-01-03 12:36 | NUR ---
ADMIT TO PCU: PT ARRIVED AT 1210 VIA GURNEY, ABLE TO TRANSFER SELF. ON ROOM AIR SATING ABOVE 92%. COMPLAINS OF HEADACHE FROM NITRO PATCH ON LEFT UPPER CHEST. AND MILD CHEST PAIN. WILL MEDICATE PER EMAR. TELE SHOWING SINUS RHYTHM WITH HR 92. LEFT SCAR ON FORARM FROM RECENT CARPAL TUNNEL SURGERY. ORIENTED TO ROOM/UNIT AND EDUCATED SAND CONDITIONER LIGHT AND FALL PREVENTION. WILL CONTINUE TO MONITOR. VITAL SIGNS STABLE.
--- NOTE | 2021-01-03 19:23 | NUR ---
SHIFT SUMMARY: PT ALERT AND ORIENTED X4. ON ROOM AIR SATING ABOVE 92%. VITAL SIGN STABLE. TELE SHOWING NSR. NITRO PATCH ON LEFT UPPER CHEST. CHEST PAIN PRESENT AND RELIEVED WITH MORPHINE. PLAN FOR CATH TOMORROW. ATE DINNER TONIGHT AND NPO AT MIDNIGHT, SEE ORDERS. UP IN CHAIR AT BEDSIDE FOR DINNER. USING URINAL. CALLING APPROPRIATLY. L AC IV WITH HEPARIN INFUSING. BED REMAINED IN LOW POSITION AND LOCKED. REPORTED OFF TO MEDICAL OFFICE TECHNOLOGIST NURSE AT BEDSIDE.
[2021-01-03 23:37] LABS: Influenza A, PCR NEGATIVE (NEGATIVE); Influenza B, PCR NEGATIVE (NEGATIVE); Resp Syncytial Virus, PCR NEGATIVE (NEGATIVE); SARS-Cov-2 (COVID-19) PCR, MMC NEGATIVE (NEGATIVE)
--- NOTE | 2021-01-04 05:59 | NUR ---
SHIFT SUMMARY PT IS ALERT AND ORIENTED. PT'S VITALS HAVE BEEN STABLE WITH SATS OF >92% ON ROOM AIR. PT HAS CONTSTANTLY HAD CHEST PAIN WITH PRESSURE WAS TREATED PER ORDERS. SBA TO BATHROOM. HEPARIN INFUSING. NPO FOR PROCEDURE SINCE MIDNIGHT.
--- NOTE | 2021-01-04 14:20 | NUR ---
PT TO [facility] FOR CATH
--- NOTE | 2021-01-04 16:38 | NUR ---
PT BACK FROM [employer], WAITING COBRA TRANSFER. DIET ORDERED. CHEST PAIN CONTINUES. MEDICATED PER EMAR. RIGHT GROIN SITE. NO SIGNS OF BLEEDING. NONTENDER, SMALL KNOT NOTED ABOVE SITE. PER NUCLE[employer] CONSTRUCTION WORKER NURSE IT IS FROM LIDOCAINE. VITAL SIGNS STABLE. WILL CONTINUE TO MONITOR.
[2021-01-04 17:59] LABS: Source, Urine Catheter
--- NOTE | 2021-01-04 18:12 | NUR ---
RIGHT GROIN SIGHT UNCHAGED KNOT SIZE PER [facility] NURSE FROM LIDOCAINE UNCHANGED IN SIZE. SMALL AMOUNT OF BRUISING ABOVE SIGHT. DRESSING REMAINS UNCHANGED. WILL CONTINUE TO MONITOR.
[2021-01-04 18:54] LABS: Appearance, Urine Clear (Clear); Bilirubin, Urine Neg (Neg); Blood, Urine 2+ (Neg); Color, Urine Yellow (P-Yellow); Glucose Qualitative, Urine Neg (Neg); Ketones, Urine Neg (Neg); Leukocyte Esterase, Urine Neg (Neg); Nitrite, Urine Neg (Neg); Protein, Urine Neg (Neg); Specific Gravity, Urine 1.005 (1.003-1.022); Urobilinogen, Urine NORM (Normal)
--- NOTE | 2021-01-04 19:10 | NUR ---
PT COBRA TRANSFER TO [facility]. RIGHT GROIN SIGHT UNCHANGED. ON ROOM AIR SATING ABOVE 92%. VITAL SIGNS STABLE. NO CHANGES FROM PREVIOUS NOTES. MEDICATED PER EMAR FOR CHEST PAIN. REPORTED OFF TO [facility] NURSE. TRANSFER VISUALIZED AND FELT GROIN SIGHT. PT LEFT UNIT VIA GURNEY LAYING FLAT WITH LEGS FLAT. PT AND TRANSFER TEAM EDUCATED ON GROIN SIGHT AND POST ANGIO CARE.
[2021-01-04 19:11] LABS: Bacteria Rare /hpf; Squamous Epithelial Cells Rare /hpf (Few); White Blood Cells, Urine 0-2 /hpf (0-5)
[2021-02-11] MEDS ORDERED: CITALOPRAM HBR PO (14:06)
[2021-02-11] MEDS ORDERED: ATOR20 PO (14:06)
[2021-02-11] MEDS ORDERED: BASAGLAR K100 UNIT/8 SC (14:06)
[2021-02-11] MEDS ORDERED: DIAZ5 PO (14:07)
[2021-02-11] MEDS ORDERED: NEURONTIN600 MG PO (14:07)
[2021-02-11] MEDS ORDERED: HYDHCL25 PO ×2 (14:07)
[2021-02-11] MEDS ORDERED: LOSA50 PO (14:08)
[2021-02-11] MEDS ORDERED: EUTHYROX88 MCG PO (14:08)
[2021-02-11] MEDS ORDERED: Isosorbide Mono30 MG PO (14:08)
[2021-02-11] MEDS ORDERED: ALLERCLEAR10 MG PO (14:08)
[2021-02-11] MEDS ORDERED: GLUCOPHAGE1000 M1 PO (14:09)
[2021-02-11] MEDS ORDERED: MIRT30ST PO (14:09)
[2021-02-11] MEDS ORDERED: PREG100 PO (14:09)
[2021-02-11] MEDS ORDERED: KAPSPARGO SPRI100 MG PO (14:09)
[2021-02-11] MEDS ORDERED: OMEP20ER PO (14:10)
[2021-02-11] MEDS ORDERED: NITR.4SL SL (14:10)
[2021-02-11] MEDS ORDERED: NOVOLOG FL100 UNIT/3 SC (14:10)
[2021-02-11] MEDS ORDERED: PROAIR DIGIHAL90 MCG INH (14:11)
[2021-02-11] MEDS ORDERED: PANT40 PO (14:11)
[2021-02-11] MEDS ORDERED: TAMS.4ER PO (14:11)
--- NOTE | 2021-03-13 15:38 | NUR ---
ORDER RECIEVED BY AMARI JULIEN ON 01/03/2021 AT 1439 FOR A DIET ORDER OF ADA/DIAB/CONS CARB UPDATED AT THIS TIME.
--- NOTE | 2021-03-13 15:42 | NUR ---
ORDER RECIEVED BY AMARI JULIEN ON 01/03/2021 AT 1518 FOR NOTIFY MICHA - NPO AT MIDNIGHT FOR HEART CATH ON 01/04 UPDATED AT THIS TIME.
== END 2021-01-04 18:30 | disposition short-term general hospital (02) | DRG 287 ==
LOC: ER 17:18 → ERHOLD 17:19 → PCU 17:19 → ERHOLD 01-03 12:10 → PCU 01-04 08:58
PROVIDERS: Emergency Medicine; Internal Medicine; Internal Medicine Interventional Cardiology; Nurse Practitioner Acute Care; ADMIT Internal Medicine
PROC: B2111ZZ Fluoroscopy of Multiple Coronary Arteries using Low Osmolar Contrast (ICD-10-PCS; principal; 2021-01-04)
PROC: B2181ZZ Fluoroscopy of Left Internal Mammary Bypass Graft using Low Osmolar Contrast (ICD-10-PCS; 2021-01-04)
PROC: B2131ZZ Fluoroscopy of Multiple Coronary Artery Bypass Grafts using Low Osmolar Contrast (ICD-10-PCS; 2021-01-04)
DX: I25.110 Atherosclerotic heart disease of native coronary artery with unstable angina pectoris (principal); E11.42 Type 2 diabetes mellitus with diabetic polyneuropathy; E03.9 Hypothyroidism, unspecified; I10 Essential (primary) hypertension; K21.9 Gastro-esophageal reflux disease without esophagitis; F32.9 Major depressive disorder, single episode, unspecified; E66.9 Obesity, unspecified; Z20.822 Contact with and (suspected) exposure to COVID-19; N40.0 Benign prostatic hyperplasia without lower urinary tract symptoms; E78.5 Hyperlipidemia, unspecified; Z88.5 Allergy status to narcotic agent; Z88.0 Allergy status to penicillin; Z88.8 Allergy status to other drugs, medicaments and biological substances; Z88.6 Allergy status to analgesic agent; Z88.1 Allergy status to other antibiotic agents; I25.2 Old myocardial infarction; Z91.011 Allergy to milk products; Z85.048 Personal history of other malignant neoplasm of rectum, rectosigmoid junction, and anus; Z86.718 Personal history of other venous thrombosis and embolism; Z98.890 Other specified postprocedural states; Z95.828 Presence of other vascular implants and grafts; Z90.49 Acquired absence of other specified parts of digestive tract; Z95.5 Presence of coronary angioplasty implant and graft; Z95.1 Presence of aortocoronary bypass graft; Z98.1 Arthrodesis status; Z87.891 Personal history of nicotine dependence; Z79.4 Long term (current) use of insulin; Z79.82 Long term (current) use of aspirin; Z79.1 Long term (current) use of non-steroidal anti-inflammatories (NSAID); Z79.899 Other long term (current) drug therapy; Z91.14 Patient's other noncompliance with medication regimen; Z92.21 Personal history of antineoplastic chemotherapy; Z68.32 Body mass index [BMI] 32.0-32.9, adult
CPT/HCPCS: 0241U; 36415; 51702; 71046; 76937; 80048; 80053; 81001; 82947; 84484; 85025; 85347; 85379; 85730; 93005; 93010; 93459; 96372; 96372-59; 96374; 96375; 96376; 99152; 99153; 99285-25; A9270; C1760; C1769; C1887; C1894; G0378; J0461; J0572; J1644; J1650; J2250; J2270; J2370; J2405; J3010; J7030; J7040; J7050; J7060; Q9967

== ENCOUNTER 2021-01-19 08:16 | Emergency (ER) | payer OTHER ==
[~2021-01-19] VITALS: Ht 170.2 cm; Wt 98.9 kg
[~2021-01-19 08:16] MED LIST changes: +BASAGLAR K100 UNIT/5 SC; +BUPRENORPHN-NA1 EAC2 SL; +GLUCOPHAGE1000 M1 PO; +IBU800 M1 PO; +INSULIN LI100 UNIT/6 SC; +ISOSORBIDE MONO60 MG PO; +Lipitor20 MG PO; +Loratadine10 MG PO; +Neurontin600 MG PO; +PANT40 PO
[2021-01-19 08:40] LABS: BASOPHILS ABSOLUTE AUTO 0.04 K/mm3 (0.00-0.23); BASOPHILS PERCENT AUTO 1 % (0-2); EOSINOPHILS ABSOLUTE AUTO 0.23 K/mm3 (0.00-0.68); EOSINOPHILS PERCENT AUTO 4 % (0-6); Hematocrit 41.3 % (37.0-53.0); Hemoglobin 14.7 g/dL (13.5-17.5); IMMATURE GRAN ABSOLUTE AUTO 0.01 K/mm3 (0.00-0.10); IMMATURE GRAN PERCENT AUTO 0 % (0-1); LYMPHOCYTES ABSOLUTE AUTO 1.49 K/mm3 (0.84-5.20); LYMPHOCYTES PERCENT AUTO 26 % (21-46); MONOCYTES ABSOLUTE AUTO 0.42 K/mm3 (0.16-1.47); MONOCYTES PERCENT AUTO 7 % (4-13); Mean Corpuscular HGB 32.3 pg (26.0-34.0); Mean Corpuscular HGB Conc 35.6 g/dL (31.5-36.5); Mean Corpuscular Volume 91 fL (80-100); NEUTROPHILS ABSOLUTE AUTO 3.47 K/mm3 (1.96-9.15); NEUTROPHILS PERCENT AUTO 61 % (41-73); Platelet Count 155 K/mm3 (150-400); RDW Coefficient Variation 12.4 % (11.7-14.2); RDW Standard Deviation 40.8 fL (35.1-46.3); Red Blood Cell Count 4.55 M/mm3 (4.30-5.90); White Blood Cell Count 5.66 K/mm3 (4.00-11.30)
[2021-01-19 09:03] LABS: Alanine Aminotransfer (ALT/SGP 40 U/L (12-78); Albumin, Blood 3.5 g/dL (3.4-5.0); Albumin/Globulin Ratio 0.9 (0.8-1.8); Alk Phos 101 U/L (50-136); Anion Gap 6 mmol/L (6-16); Aspartate Aminotrans (AST/SGOT 24 U/L (12-37); Bilirubin, Total 0.4 mg/dL (0.1-1.0); Blood Urea Nitrogen 14 mg/dL (8-24); CO2, Blood 24 mmol/L (21-32); Calcium, Blood 8.4 mg/dL (8.5-10.1); Chloride, Blood 108 mmol/L (98-108); Creatinine, Blood 0.74 mg/dL (0.60-1.20); Globulin, Blood 3.7 g/dL (2.2-4.0); Glomerular Filtration Rate >60 (60-); Glucose, Blood 227 mg/dL (70-99); Potassium, Blood 4.2 mmol/L (3.5-5.5); Sodium, Blood 138 mmol/L (136-145); Total Protein, Blood 7.2 g/dL (6.4-8.2); Troponin I <0.015 ng/mL (0.000-0.040)
[2021-02-11] MEDS ORDERED: CITALOPRAM HBR PO (14:06)
[2021-02-11] MEDS ORDERED: BASAGLAR K100 UNIT/8 SC (14:06)
[2021-02-11] MEDS ORDERED: ATOR20 PO (14:06)
[2021-02-11] MEDS ORDERED: NEURONTIN600 MG PO (14:07)
[2021-02-11] MEDS ORDERED: DIAZ5 PO (14:07)
[2021-02-11] MEDS ORDERED: HYDHCL25 PO ×2 (14:07)
[2021-02-11] MEDS ORDERED: Isosorbide Mono30 MG PO (14:08)
[2021-02-11] MEDS ORDERED: EUTHYROX88 MCG PO (14:08)
[2021-02-11] MEDS ORDERED: ALLERCLEAR10 MG PO (14:08)
[2021-02-11] MEDS ORDERED: LOSA50 PO (14:08)
[2021-02-11] MEDS ORDERED: KAPSPARGO SPRI100 MG PO (14:09)
[2021-02-11] MEDS ORDERED: MIRT30ST PO (14:09)
[2021-02-11] MEDS ORDERED: PREG100 PO (14:09)
[2021-02-11] MEDS ORDERED: GLUCOPHAGE1000 M1 PO (14:09)
[2021-02-11] MEDS ORDERED: OMEP20ER PO (14:10)
[2021-02-11] MEDS ORDERED: NITR.4SL SL (14:10)
[2021-02-11] MEDS ORDERED: NOVOLOG FL100 UNIT/3 SC (14:10)
[2021-02-11] MEDS ORDERED: PROAIR DIGIHAL90 MCG INH (14:11)
[2021-02-11] MEDS ORDERED: PANT40 PO (14:11)
[2021-02-11] MEDS ORDERED: TAMS.4ER PO (14:11)
== END 2021-01-19 10:59 | disposition home or self-care (01) ==
LOC: ER 08:16
PROVIDERS: Emergency Medicine
DX: R07.9 Chest pain, unspecified (principal); I25.2 Old myocardial infarction; E11.40 Type 2 diabetes mellitus with diabetic neuropathy, unspecified; I10 Essential (primary) hypertension; E78.5 Hyperlipidemia, unspecified; K21.9 Gastro-esophageal reflux disease without esophagitis; E03.9 Hypothyroidism, unspecified; I25.810 Atherosclerosis of coronary artery bypass graft(s) without angina pectoris; Z79.899 Other long term (current) drug therapy; Z79.4 Long term (current) use of insulin; Z88.0 Allergy status to penicillin; Z88.8 Allergy status to other drugs, medicaments and biological substances; Z88.5 Allergy status to narcotic agent; Z95.1 Presence of aortocoronary bypass graft
CPT/HCPCS: 71045; 80053; 84484; 85025; 93005; 93010; 96374; 96375; 99285-25; J2270; J2405

== ENCOUNTER 2021-04-05 01:05 | Emergency (ER) | payer OTHER ==
[~2021-04-05] VITALS: Ht 177.8 cm; Wt 97.5 kg
[~2021-04-05 01:05] MED LIST changes: +ALLERCLEAR10 MG PO; +BASAGLAR K100 UNIT/8 SC; +CITALOPRAM HBR PO; +EUTHYROX88 MCG PO; +HYDHCL25 PO; +KAPSPARGO SPRI100 MG PO; +MIRT30ST PO; +NEURONTIN600 MG PO; +NOVOLOG FL100 UNIT/3 SC; +OMEP20ER PO; +PROAIR DIGIHAL90 MCG INH
[2021-04-05 01:51] LABS: BASOPHILS ABSOLUTE AUTO 0.04 K/mm3 (0.00-0.23); BASOPHILS PERCENT AUTO 1 % (0-2); EOSINOPHILS ABSOLUTE AUTO 0.26 K/mm3 (0.00-0.68); EOSINOPHILS PERCENT AUTO 5 % (0-6); Hematocrit 45.2 % (37.0-53.0); Hemoglobin 15.9 g/dL (13.5-17.5); IMMATURE GRAN ABSOLUTE AUTO 0.01 K/mm3 (0.00-0.10); IMMATURE GRAN PERCENT AUTO 0 % (0-1); LYMPHOCYTES ABSOLUTE AUTO 1.48 K/mm3 (0.84-5.20); LYMPHOCYTES PERCENT AUTO 30 % (21-46); MONOCYTES PERCENT AUTO 8 % (4-13); Mean Corpuscular HGB Conc 35.2 g/dL (31.5-36.5); Mean Corpuscular Volume 91 fL (80-100); Mean Platelet Volume 9.5 fL (9.1-12.4); NEUTROPHILS ABSOLUTE AUTO 2.72 K/mm3 (1.96-9.15); NEUTROPHILS PERCENT AUTO 56 % (41-73); Platelet Count 163 K/mm3 (150-400); RDW Coefficient Variation 12.9 % (11.7-14.2); Red Blood Cell Count 4.97 M/mm3 (4.30-5.90); White Blood Cell Count 4.91 K/mm3 (4.00-11.30)
[2021-04-05 01:58] LABS: Alanine Aminotransfer (ALT/SGP 39 U/L (12-78); Albumin, Blood 3.4 g/dL (3.4-5.0); Albumin/Globulin Ratio 0.8 (0.8-1.8); Alk Phos 101 U/L (50-136); Anion Gap 8 mmol/L (6-16); Aspartate Aminotrans (AST/SGOT 31 U/L (12-37); Bilirubin, Total 0.5 mg/dL (0.1-1.0); Blood Urea Nitrogen 10 mg/dL (8-24); CO2, Blood 26 mmol/L (21-32); Chloride, Blood 101 mmol/L (98-108); Creatinine, Blood 0.77 mg/dL (0.60-1.20); Globulin, Blood 4.1 g/dL (2.2-4.0); Glomerular Filtration Rate >60 (60-); Glucose, Blood 439 mg/dL (70-99); Potassium, Blood 3.8 mmol/L (3.5-5.5); Sodium, Blood 135 mmol/L (136-145); Total Protein, Blood 7.5 g/dL (6.4-8.2); Troponin I <0.015 ng/mL (0.000-0.040)
== END 2021-04-05 04:59 | disposition home or self-care (01) ==
LOC: ER 01:05
PROVIDERS: Student in an Organized Health Care Education/Training Program
DX: R07.9 Chest pain, unspecified (principal); R10.31 Right lower quadrant pain; R10.32 Left lower quadrant pain; E11.40 Type 2 diabetes mellitus with diabetic neuropathy, unspecified; I10 Essential (primary) hypertension; E78.5 Hyperlipidemia, unspecified; K21.9 Gastro-esophageal reflux disease without esophagitis; Z79.899 Other long term (current) drug therapy; Z79.4 Long term (current) use of insulin; Z88.0 Allergy status to penicillin; Z88.5 Allergy status to narcotic agent; Z88.8 Allergy status to other drugs, medicaments and biological substances
CPT/HCPCS: 71045; 74177; 80053; 84484; 85025; 93005; 93010; 96374-59; 99285-25; A9270; J2405; Q9967

== ENCOUNTER 2021-05-16 23:09 | Emergency (ER) | payer OTHER ==
[~2021-05-16] VITALS: Ht 177.8 cm; Wt 101.2 kg
[2021-05-17] MEDS ORDERED: HYDR1TAB94 PO (00:52)
== END 2021-05-17 01:34 | disposition home or self-care (01) ==
LOC: ER 23:09
DX: S42.291A Other displaced fracture of upper end of right humerus, initial encounter for closed fracture (principal); E11.9 Type 2 diabetes mellitus without complications; E03.9 Hypothyroidism, unspecified; Z88.0 Allergy status to penicillin; Z88.5 Allergy status to narcotic agent; Z79.4 Long term (current) use of insulin; Z87.891 Personal history of nicotine dependence; W10.9XXA Fall (on) (from) unspecified stairs and steps, initial encounter
CPT/HCPCS: 29105; 70450; 71046; 72125; 73030; 96374; 99284-25; A9270; J2270

== ENCOUNTER 2021-05-22 06:04 | Emergency (ER) | payer OTHER ==
[~2021-05-22] VITALS: Ht 177.8 cm; Wt 101.2 kg
[~2021-05-22 06:04] MED LIST changes: +HYDR1TAB94 PO
[2021-05-22] MEDS ORDERED: HYDR1TAB94 PO (07:28)
== END 2021-05-22 08:10 | disposition home or self-care (01) ==
LOC: ER 06:04
DX: S42.291A Other displaced fracture of upper end of right humerus, initial encounter for closed fracture (principal); S20.211A Contusion of right front wall of thorax, initial encounter; S70.01XA Contusion of right hip, initial encounter; E11.40 Type 2 diabetes mellitus with diabetic neuropathy, unspecified; E78.5 Hyperlipidemia, unspecified; I10 Essential (primary) hypertension; K21.9 Gastro-esophageal reflux disease without esophagitis; Z79.4 Long term (current) use of insulin; Z79.899 Other long term (current) drug therapy; Z88.0 Allergy status to penicillin; Z88.5 Allergy status to narcotic agent; Z88.1 Allergy status to other antibiotic agents; Z88.8 Allergy status to other drugs, medicaments and biological substances; W18.30XA Fall on same level, unspecified, initial encounter
CPT/HCPCS: 71045; 73502; 99283-25; A9270

== ENCOUNTER 2023-09-07 17:45 | Observation (INO) | payer OTHER ==
[~2023-09-07] VITALS: Ht 177.8 cm; Wt 90.7 kg
[2023-09-07 18:11] LABS: BASOPHILS ABSOLUTE AUTO 0.08 K/mm3 (0.00-0.23); BASOPHILS PERCENT AUTO 1 % (0-2); EOSINOPHILS PERCENT AUTO 4 % (0-6); Hematocrit 43.6 % (37.0-53.0); Hemoglobin 15.7 g/dL (13.5-17.5); IMMATURE GRAN ABSOLUTE AUTO 0.01 K/mm3 (0.00-0.10); IMMATURE GRAN PERCENT AUTO 0 % (0-1); LYMPHOCYTES ABSOLUTE AUTO 2.33 K/mm3 (0.84-5.20); LYMPHOCYTES PERCENT AUTO 28 % (21-46); MONOCYTES ABSOLUTE AUTO 0.55 K/mm3 (0.16-1.47); MONOCYTES PERCENT AUTO 7 % (4-13); Mean Corpuscular HGB 33.1 pg (26.0-34.0); Mean Corpuscular Volume 92 fL (80-100); Mean Platelet Volume 8.6 fL (9.1-12.4); NEUTROPHILS ABSOLUTE AUTO 5.07 K/mm3 (1.96-9.15); NEUTROPHILS PERCENT AUTO 61 % (41-73); Platelet Count 205 K/mm3 (150-400); RDW Standard Deviation 41.2 fL (35.1-46.3); Red Blood Cell Count 4.74 M/mm3 (4.30-5.90); White Blood Cell Count 8.34 K/mm3 (4.00-11.30)
[2023-09-07 18:33] LABS: Albumin, Blood 3.6 g/dL (3.4-5.0); Bilirubin, Total 0.3 mg/dL (0.1-1.0); Bun/Creatinine Ratio 13.5 (12.0-20.0); Calcium, Blood 8.6 mg/dL (8.5-10.1); Creatinine, Blood 0.74 mg/dL (0.60-1.20); Globulin, Blood 3.7 g/dL (2.2-4.0); Potassium, Blood 3.7 mmol/L (3.5-5.5); Total Protein, Blood 7.3 g/dL (6.4-8.2)
[2023-09-08 04:29] VITALS: BP 120/77
--- NOTE | 2023-09-08 06:07 | NUR ---
ELIF ANTHONY, PT RESTING IN BED AT THIS TIME. PT NOT SLEEPING MUCH. PT STATED HE HASDIFFICULTY SLEEPING. PT EARLIER C/O GALEANO AND STOMACH PAIN. PT HAS ON NITRO PATCH. PT SATED ABD PAIN WAS A CRAMPING TIGHT FEELING THAT WENT UNDER HHHHHIS RIBS. ASLED PT IF HE WAS PASING GAS AND PT SAID HE THOUGHT SO. PT STATED HE HAD NOT HAD A BM FOR 3 DAYS THEN HAD A SM ONE THIS AM. TELE LINDA CALLED NOT TOO LONG AFTER PT HAD COME TO FLOOR AND SAID PT HAD AN ST ELEVATION. EKG FOR WILLIS ADMIT SENT FOR HER TO SEE IF ANY CHANGE. SHE SATED IT APPEARS TO BE THE SAME. CALLED HOSPITALIST TO LET HIM KNOW, AND REQUEST BOWEL CALR MEDS AND MAAYLOX. PT GIVEN MAAYLOX AND REPOARTED SOME COMMFORT. PT LATTER REQUESTED PAIN MED FOR GALEANO. PT RESTING AT THIS TIME CALL LIGHT IN REACH.
[2023-09-08 07:33] VITALS: BP 112/70
[2023-09-08 15:11] VITALS: BP 131/80
--- NOTE | 2023-09-08 18:17 | NUR ---
SUMMARY- PT A/O X4, USES CALL LIGHT. INDEPENDAND TO THE BATHROOM. HAVING ABD PAIN INTERMITTANT DESCRIBES TIGHTNESS DEEP MID ABD, RADIATES TO KIDNEYS AND OCC CHEST, SOMETIMES FEELS SOB. MEDICATED WITH FENTANYL IV PRN WITH PARTIAL RELEIF. ALSO HAS CHRONIC BACK PAIN, MEDICATED WITH OXYCODONE WITH ADQ RELEIF. TOLERATING FOOD AND FLUIDS. 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 GIVEN MOM THIS PM. PLAN FOR CARDIAC STRESS TEST TOMORROW. NPO AFTER MIDNIGHT EXCEPT CLEAR LIQ OK UNTIL 4 HOURS BEFORE PROCEDURE- WILL REPORT ALL TO NOC RN
--- NOTE | 2023-09-08 18:26 | NUR ---
0928- CALL TO DR LESTER TO NOTIFY OF PATIENTS COMPLAINT OF SEVERE ABD PAIN, DESCRIBED TIGHT PRESSURE, SQUEEZING ACROSS CORE, RADIATING FEELS LIKE KIDNEY PAIN, OCC PAIN INTO CHEST AND A FEELING OF BEING SOB. PT'S VSS, NO CHANGES ON TELE. ORDER RECEIVED FOR FENTANYL PRN
[2023-09-08 19:06] VITALS: BP 139/73
--- NOTE | 2023-09-09 02:30 | NUR ---
SHIFT GABRIELLE, PT RESTING IN BED AT THIS TIME. PT GETTING ANXIOUS ABOUT WHAT COULD POSSIBLY BE MAKING HIM HAVE PAIN. PT HAD DX OF CA TO COLON AND IS VERY WORRIED WHAT COULD BE WRONG. PT MEDICATED AND TALKED TO PT AND PAIN MEDS AND ATARAX GIVEN. CALL LIGHT IN REACH.
[2023-09-09 04:20] VITALS: BP 128/79
[2023-09-09 07:19] VITALS: BP 125/84
[2023-09-09 15:42] VITALS: BP 131/82
--- NOTE | 2023-09-09 18:20 | NUR ---
SHIFT SUMMARY A&O X 4, VSS. IS PLEASANT & COOPERATIVE WITH ALL CARE. IS INDEPENDENT IN THE ROOM FOR RESTROOM USE. MEDICATED PER EMAR FOR C/O PAIN WITH GOOD RELIEF STATED BY PT. STRESS TEST DONE TODAY, REPORT ON CHART. CALL LIGHT WITHI REACH, BED IN LOW POSITION.
[2023-09-09 19:35] VITALS: BP 134/80
--- NOTE | 2023-09-10 03:59 | NUR ---
REPORT RECEIVED VERIFIED A/O ONLY COMPLAINTS ARE OF PAIN TO ABD WHICH HAS BEEN AN ON GOING ISSUE. ENC PT TO REPOSITION AND SIT UP IN CHAIR AND TO CALL IF NEEDING ASSITENCE. PT MEDICATED PER MAR AND IS ATTEMPTING TO SLEEP BUT CANNOT, SO PT MEDICATED WITH PRN MEDICATION. WILL CONT TO MONITOR, PT SLEEPING QUIETLY NOW.
[2023-09-10 04:10] VITALS: BP 119/68
[2023-09-10 04:49] LABS: Hematocrit 40.4 % (37.0-53.0); Hemoglobin 14.3 g/dL (13.5-17.5); Mean Corpuscular HGB 32.9 pg (26.0-34.0); Mean Corpuscular HGB Conc 35.4 g/dL (31.5-36.5); Mean Corpuscular Volume 93 fL (80-100); Mean Platelet Volume 8.8 fL (9.1-12.4); Platelet Count 177 K/mm3 (150-400); RDW Coefficient Variation 11.9 % (11.7-14.2); RDW Standard Deviation 41.2 fL (35.1-46.3); Red Blood Cell Count 4.34 M/mm3 (4.30-5.90); White Blood Cell Count 6.17 K/mm3 (4.00-11.30)
[2023-09-10 05:22] LABS: Bun/Creatinine Ratio 19.1 (12.0-20.0); Calcium, Blood 8.5 mg/dL (8.5-10.1); Creatinine, Blood 0.99 mg/dL (0.60-1.20); Potassium, Blood 4.4 mmol/L (3.5-5.5)
[2023-09-10 07:09] VITALS: BP 133/91
[2023-09-10] MEDS ORDERED: METO50ER PO (10:11)
[2023-09-10] MEDS ORDERED: MIRT30 PO (10:11)
[2023-09-10] MEDS ORDERED: ASPI81CH PO (10:12)
[2023-09-10] MEDS ORDERED: PANT40 PO (12:29)
[2023-09-10] MEDS ORDERED: ALUM-MAG HYDROX30 M2 PO (12:30)
[2023-09-10] MEDS ORDERED: OXYC5 PO (12:31)
[2023-09-10] MEDS ORDERED: DOCUZEN 8.6-501 EACH PO (12:32)
--- NOTE | 2023-09-10 14:04 | NUR ---
DC HOME WRITTEN & VERBAL DC INSTRUCTIONS GIVEN TO PT, PT VERBALIZED GOOD UNDERSTANDING. ALL CONCERNS & QUESTIONS ADDRESSED. PIV DC'D WITH CATH TIP INTACT, NO REDNESS OR SWELLING NOTED. [facility] [address] [facility] PT REQUEST. HAND WRITTEN SCRIPT FOR PAIN MEDS GIVEN TO PT, COPY MADE & ON THE CHART. PT TO TAXI VIA W/C WITH ALL PERSONAL BELONGINGS. TAXI WILL TAKE PT TO PHARM TO [facility] ON THE WAY HOME.
[2023-09-15 09:12] LABS: F001-IGE EGG WHITE 0.16 kU/L (Class 0/I); F002-IGE MILK 0.46 kU/L (Class I); F003-IGE CODFISH <0.10 kU/L (Class 0); F004-IGE WHEAT 2.72 kU/L (Class III); F010-IGE SESAME SEED 0.87 kU/L (Class II); F013-IGE PEANUT 0.93 kU/L (Class II); F014-IGE SOYBEAN 0.61 kU/L (Class II); F020-IGE ALMOND 0.75 kU/L (Class II); F024-IGE SHRIMP 4.26 kU/L (Class IV); F040-IGE TUNA <0.10 kU/L (Class 0); F041-IGE SALMON <0.10 kU/L (Class 0); F202-IGE CASHEW NUT <0.10 kU/L (Class 0); F256-IGE WALNUT 0.71 kU/L (Class II); F338-IGE SCALLOP 0.65 kU/L (Class II)
== END 2023-09-10 13:56 | disposition home or self-care (01) ==
LOC: ER 17:45 → MEDS 17:46 → ENPENDDIS 09-10 11:00 → MEDS 09-10 13:56
PROVIDERS: Emergency Medicine; Internal Medicine; ADMIT Internal Medicine
DX: I25.118 Atherosclerotic heart disease of native coronary artery with other forms of angina pectoris (principal); Z79.4 Long term (current) use of insulin; I10 Essential (primary) hypertension; E11.40 Type 2 diabetes mellitus with diabetic neuropathy, unspecified; K21.9 Gastro-esophageal reflux disease without esophagitis; E03.9 Hypothyroidism, unspecified; C18.9 Malignant neoplasm of colon, unspecified; R10.31 Right lower quadrant pain; Z95.1 Presence of aortocoronary bypass graft; Z88.5 Allergy status to narcotic agent; Z88.8 Allergy status to other drugs, medicaments and biological substances; Z88.0 Allergy status to penicillin; Z87.891 Personal history of nicotine dependence
CPT/HCPCS: 36415; 71045; 74176; 78452; 80048; 80053; 82947; 83605; 83690; 83880; 84443; 84484; 85025; 85027; 86140; 93005; 93010; 93017; 94760; 96372; 96374; 96376; 99285-25; A9270; A9500; G0378; J1650; J2785; J3010

== ENCOUNTER 2023-12-11 20:47 | Emergency (ER) | payer OTHER ==
[~2023-12-11] VITALS: Ht 177.8 cm; Wt 97.5 kg
[~2023-12-11 20:47] MED LIST changes: +ALUM-MAG HYDROX30 M2 PO; +DOCUZEN 8.6-501 EACH PO
[2023-12-11 21:00] LABS: Calcium, Ionized (POC) 1.12 mmol/L (1.10-1.46); Chloride (POC) 99 mmol/L (98-108); Creatinine (POC) 0.8 mg/dL (0.8-1.3); Glucose (ISTAT POC) 187 mg/dL (70-99); Hemoglobin (POC) 15.3 g/dL (13.5-17.5); Potassium (POC) 3.6 mmol/L (3.5-5.5); Sodium (POC) 139 mmol/L (135-148); Total CO2 (POC) 29 mmol/L (21-32)
[2023-12-11 21:01] LABS: BASOPHILS PERCENT AUTO 1 % (0-2); EOSINOPHILS ABSOLUTE AUTO 0.46 K/mm3 (0.00-0.68); EOSINOPHILS PERCENT AUTO 5 % (0-6); Hematocrit 44.5 % (37.0-53.0); Hemoglobin 15.8 g/dL (13.5-17.5); IMMATURE GRAN ABSOLUTE AUTO 0.03 K/mm3 (0.00-0.10); IMMATURE GRAN PERCENT AUTO 0 % (0-1); LYMPHOCYTES ABSOLUTE AUTO 2.59 K/mm3 (0.84-5.20); LYMPHOCYTES PERCENT AUTO 27 % (21-46); MONOCYTES ABSOLUTE AUTO 0.62 K/mm3 (0.16-1.47); MONOCYTES PERCENT AUTO 7 % (4-13); Mean Corpuscular HGB 33.1 pg (26.0-34.0); Mean Corpuscular HGB Conc 35.5 g/dL (31.5-36.5); Mean Corpuscular Volume 93 fL (80-100); Mean Platelet Volume 8.9 fL (9.1-12.4); NEUTROPHILS ABSOLUTE AUTO 5.74 K/mm3 (1.96-9.15); NEUTROPHILS PERCENT AUTO 60 % (41-73); Platelet Count 196 K/mm3 (150-400); RDW Coefficient Variation 12.1 % (11.7-14.2); RDW Standard Deviation 41.9 fL (35.1-46.3); Red Blood Cell Count 4.77 M/mm3 (4.30-5.90); White Blood Cell Count 9.54 K/mm3 (4.00-11.30)
[2023-12-11] MEDS ORDERED: DRAMAMINE25 M3 PO (21:08)
[2023-12-11] MEDS ORDERED: REMERON30 M9 PO (21:08)
[2023-12-11] MEDS ORDERED: FentaNYL Citrate 50 MCG/ML 2 ML Injection IV ONE (21:25)
[2023-12-11 21:29] LABS: Albumin, Blood 3.7 g/dL (3.4-5.0); Bilirubin, Total 0.3 mg/dL (0.1-1.0); Bun/Creatinine Ratio 23.4 (12.0-20.0); Calcium, Blood 9.3 mg/dL (8.5-10.1); Creatinine, Blood 0.81 mg/dL (0.60-1.20); Globulin, Blood 3.8 g/dL (2.2-4.0); Potassium, Blood 3.7 mmol/L (3.5-5.5); Total Protein, Blood 7.5 g/dL (6.4-8.2)
[2023-12-11] MEDS ORDERED: Ondansetron HCl 2 MG / ML 2ML Vial IV ONE (23:45)
[2023-12-11] MEDS ORDERED: Morphine Sulfate 4 MG/1 ML Injection IV ONE (23:45)
[2023-12-12 00:30] VITALS: BP 113/70
== END 2023-12-12 00:58 | disposition home or self-care (01) ==
LOC: ER 20:47
PROVIDERS: Student in an Organized Health Care Education/Training Program
DX: R07.89 Other chest pain (principal); I25.2 Old myocardial infarction; E11.40 Type 2 diabetes mellitus with diabetic neuropathy, unspecified; E03.9 Hypothyroidism, unspecified; I10 Essential (primary) hypertension; E78.5 Hyperlipidemia, unspecified; K21.9 Gastro-esophageal reflux disease without esophagitis; I25.10 Atherosclerotic heart disease of native coronary artery without angina pectoris; Z95.1 Presence of aortocoronary bypass graft; Z88.0 Allergy status to penicillin; Z88.5 Allergy status to narcotic agent; Z88.8 Allergy status to other drugs, medicaments and biological substances; Z91.012 Allergy to eggs; Z88.1 Allergy status to other antibiotic agents; Z79.899 Other long term (current) drug therapy; Z79.82 Long term (current) use of aspirin; Z79.890 Hormone replacement therapy
CPT/HCPCS: 71046; 80047; 80053; 83880; 84484; 85014; 85025; 93005; 93010; 96374; 96375; 99285-25; J2270; J2405; J3010

== ENCOUNTER 2023-12-14 15:31 | Emergency (ER) | payer OTHER ==
[~2023-12-14] VITALS: Ht 177.8 cm; Wt 96.6 kg
[~2023-12-14 15:31] MED LIST changes: +DRAMAMINE25 M3 PO; +REMERON30 M9 PO
[2023-12-14 16:02] LABS: BASOPHILS ABSOLUTE AUTO 0.08 K/mm3 (0.00-0.23); BASOPHILS PERCENT AUTO 1 % (0-2); EOSINOPHILS ABSOLUTE AUTO 0.34 K/mm3 (0.00-0.68); EOSINOPHILS PERCENT AUTO 4 % (0-6); Hematocrit 40.6 % (37.0-53.0); Hemoglobin 14.6 g/dL (13.5-17.5); IMMATURE GRAN ABSOLUTE AUTO 0.02 K/mm3 (0.00-0.10); IMMATURE GRAN PERCENT AUTO 0 % (0-1); LYMPHOCYTES ABSOLUTE AUTO 2.36 K/mm3 (0.84-5.20); LYMPHOCYTES PERCENT AUTO 31 % (21-46); MONOCYTES ABSOLUTE AUTO 0.54 K/mm3 (0.16-1.47); MONOCYTES PERCENT AUTO 7 % (4-13); Mean Corpuscular HGB 33.4 pg (26.0-34.0); Mean Corpuscular Volume 93 fL (80-100); Mean Platelet Volume 9.3 fL (9.1-12.4); NEUTROPHILS ABSOLUTE AUTO 4.37 K/mm3 (1.96-9.15); NEUTROPHILS PERCENT AUTO 57 % (41-73); Platelet Count 188 K/mm3 (150-400); RDW Coefficient Variation 12.3 % (11.7-14.2); RDW Standard Deviation 42.6 fL (35.1-46.3); Red Blood Cell Count 4.37 M/mm3 (4.30-5.90); White Blood Cell Count 7.71 K/mm3 (4.00-11.30)
[2023-12-14] MEDS ORDERED: Ondansetron HCl 2 MG / ML 2ML Vial IV ONE (16:20)
[2023-12-14] MEDS ORDERED: Ketorolac Tromethamine 30mg Vial IV ONE (16:20)
[2023-12-14] MEDS ORDERED: DiphenhydrAMINE HCl 50 MG/ML 1ML Vial IV ONE (16:20)
[2023-12-14 16:21] LABS: Alanine Aminotransfer (ALT/SGP 21 U/L (12-78); Albumin, Blood 3.2 g/dL (3.4-5.0); Albumin/Globulin Ratio 0.9 (0.8-1.8); Alk Phos 65 U/L (50-136); Anion Gap Unable to Calculate mmol/L (6-16); Aspartate Aminotrans (AST/SGOT 37 U/L (12-37); Bilirubin, Total 0.4 mg/dL (0.1-1.0); Blood Urea Nitrogen 11 mg/dL (8-24); Bun/Creatinine Ratio 18.5 (12.0-20.0); CO2, Blood 25 mmol/L (21-32); Calcium, Blood 7.7 mg/dL (8.5-10.1); Chloride, Blood 114 mmol/L (98-108); Creatinine, Blood 0.59 mg/dL (0.60-1.20); Globulin, Blood 3.6 g/dL (2.2-4.0); Glomerular Filtration Rate 111 (60-); Glucose, Blood 120 mg/dL (70-99); Potassium, Blood 4.2 mmol/L (3.5-5.5); Sodium, Blood 138 mmol/L (136-145); Total Protein, Blood 6.8 g/dL (6.4-8.2)
[2023-12-14] MEDS ORDERED: Dexamethasone Sod Phos 10 MG/ML 1ML VIAL IV ONE (18:15)
[2023-12-14] MEDS ORDERED: Acetaminophen 500 MG Tab PO ONE (18:15)
[2023-12-14 18:30] VITALS: BP 153/89
== END 2023-12-14 18:56 | disposition home or self-care (01) ==
LOC: ER 15:31
PROVIDERS: Student in an Organized Health Care Education/Training Program
DX: G45.9 Transient cerebral ischemic attack, unspecified (principal); R07.9 Chest pain, unspecified; I10 Essential (primary) hypertension; E11.40 Type 2 diabetes mellitus with diabetic neuropathy, unspecified; E03.9 Hypothyroidism, unspecified; E78.5 Hyperlipidemia, unspecified; K21.9 Gastro-esophageal reflux disease without esophagitis; I25.2 Old myocardial infarction; Z79.82 Long term (current) use of aspirin; Z79.84 Long term (current) use of oral hypoglycemic drugs; Z88.0 Allergy status to penicillin; Z88.5 Allergy status to narcotic agent; Z88.1 Allergy status to other antibiotic agents; Z88.8 Allergy status to other drugs, medicaments and biological substances; Z91.012 Allergy to eggs
CPT/HCPCS: 70450; 71275; 80053; 84484; 85025; 93005; 93010; 96374-59; 96375-59; 99285-25; A9270; J1100; J1200; J1885; J2405; Q9967

== ENCOUNTER 2024-02-11 12:26 | Emergency (ER) | payer OTHER ==
[~2024-02-11] VITALS: Ht 177.8 cm; Wt 97.5 kg
[2024-02-11] MEDS ORDERED: Ketorolac Tromethamine 30mg Vial IV ONE (13:30)
[2024-02-11] MEDS ORDERED: DiphenhydrAMINE HCl 50 MG/ML 1ML Vial IV ONE (13:30)
[2024-02-11] MEDS ORDERED: Morphine Sulfate 10 MG/ML 1MLSYR IV ONE (13:30)
[2024-02-11] MEDS ORDERED: LORazepam 2 MG/ML 1ML Injection IV ONE (16:20)
[2024-02-11] MEDS ORDERED: Dexamethasone Sod Phos 10 MG/ML 1ML VIAL IV ONE (17:45)
[2024-02-11 18:30] VITALS: BP 111/77
[2024-02-11] MEDS ORDERED: CYCL10 PO (18:48)
[2024-02-11] MEDS ORDERED: Cyclobenzaprine HCl 10 MG Tab PO ONE (18:50)
== END 2024-02-11 19:05 | disposition home or self-care (01) ==
LOC: ER 12:26
DX: S32.019A Unspecified fracture of first lumbar vertebra, initial encounter for closed fracture (principal); R29.898 Other symptoms and signs involving the musculoskeletal system; M51.36 Other intervertebral disc degeneration, lumbar region; M48.062 Spinal stenosis, lumbar region with neurogenic claudication; R32 Unspecified urinary incontinence; W01.10XA Fall on same level from slipping, tripping and stumbling with subsequent striking against unspecified object, initial encounter; I10 Essential (primary) hypertension; K21.9 Gastro-esophageal reflux disease without esophagitis; E11.40 Type 2 diabetes mellitus with diabetic neuropathy, unspecified; E78.5 Hyperlipidemia, unspecified; I25.2 Old myocardial infarction; Z88.0 Allergy status to penicillin; Z88.5 Allergy status to narcotic agent; Z88.1 Allergy status to other antibiotic agents; Z88.8 Allergy status to other drugs, medicaments and biological substances; Z79.82 Long term (current) use of aspirin; Z79.899 Other long term (current) drug therapy; R29.6 Repeated falls
CPT/HCPCS: 72131; 72148; 96374; 96375; 99284-25; A9270; J1100; J1200; J1885; J2060; J2270

== ENCOUNTER 2024-02-27 21:00 | Observation (INO) | payer OTHER ==
[~2024-02-27] VITALS: Ht 177.8 cm; Wt 93.3 kg
[2024-02-29 12:16] VITALS: BP 118/78
== END 2024-02-29 18:15 | disposition home or self-care (01) ==
LOC: ER 21:00 → MEDS 21:01 → PCU 21:01 → MEDS 21:01 → ER 02-28 00:14 → MEDS 02-28 00:24 → PCU 02-28 13:23
PROVIDERS: ADMIT Internal Medicine
DX: I25.118 Atherosclerotic heart disease of native coronary artery with other forms of angina pectoris (principal); I10 Essential (primary) hypertension; E11.9 Type 2 diabetes mellitus without complications; E66.9 Obesity, unspecified; Z79.899 Other long term (current) drug therapy

== ENCOUNTER 2024-03-05 12:36 | Emergency (ER) | payer OTHER ==
[~2024-03-05] VITALS: Ht 177.8 cm; Wt 93.0 kg
[2024-03-05 18:30] VITALS: BP 149/97
== END 2024-03-05 19:13 | disposition home or self-care (01) ==
LOC: ER 12:36
DX: K92.1 Melena (principal); R10.11 Right upper quadrant pain; R10.12 Left upper quadrant pain; I25.10 Atherosclerotic heart disease of native coronary artery without angina pectoris; I25.2 Old myocardial infarction; E11.9 Type 2 diabetes mellitus without complications; I10 Essential (primary) hypertension; K21.9 Gastro-esophageal reflux disease without esophagitis; Z79.82 Long term (current) use of aspirin; Z85.038 Personal history of other malignant neoplasm of large intestine; Z79.899 Other long term (current) drug therapy; Z88.0 Allergy status to penicillin; Z88.5 Allergy status to narcotic agent; Z88.8 Allergy status to other drugs, medicaments and biological substances; Z91.012 Allergy to eggs

== ENCOUNTER 2024-05-02 17:38 | Emergency (ER) | payer OTHER ==
[~2024-05-02] VITALS: Ht 177.8 cm; Wt 102.1 kg
[~2024-05-02 17:38] MED LIST changes: +ATOR10 PO; +LORATADINE10 MG PO; +LOSA25 PO; +METO25ER PO; +Milk Of Ma400 MG/5 M PO
[2024-05-02 18:05] LABS: BASOPHILS ABSOLUTE AUTO 0.08 K/mm3 (0.00-0.23); BASOPHILS PERCENT AUTO 1 % (0-2); EOSINOPHILS ABSOLUTE AUTO 0.23 K/mm3 (0.00-0.68); EOSINOPHILS PERCENT AUTO 3 % (0-6); Hematocrit 43.9 % (37.0-53.0); Hemoglobin 15.6 g/dL (13.5-17.5); IMMATURE GRAN ABSOLUTE AUTO 0.02 K/mm3 (0.00-0.10); IMMATURE GRAN PERCENT AUTO 0 % (0-1); LYMPHOCYTES ABSOLUTE AUTO 2.14 K/mm3 (0.84-5.20); LYMPHOCYTES PERCENT AUTO 29 % (21-46); MONOCYTES ABSOLUTE AUTO 0.61 K/mm3 (0.16-1.47); MONOCYTES PERCENT AUTO 8 % (4-13); Mean Corpuscular HGB 33.3 pg (26.0-34.0); Mean Corpuscular HGB Conc 35.5 g/dL (31.5-36.5); Mean Corpuscular Volume 94 fL (80-100); Mean Platelet Volume 9.1 fL (9.1-12.4); NEUTROPHILS ABSOLUTE AUTO 4.36 K/mm3 (1.96-9.15); NEUTROPHILS PERCENT AUTO 59 % (41-73); Platelet Count 197 K/mm3 (150-400); RDW Standard Deviation 41.5 fL (35.1-46.3); Red Blood Cell Count 4.69 M/mm3 (4.30-5.90); White Blood Cell Count 7.44 K/mm3 (4.00-11.30)
[2024-05-02] MEDS ORDERED: Ondansetron HCl 2 MG / ML 2ML Vial IV ONE (18:05)
[2024-05-02] MEDS ORDERED: FentaNYL Citrate 50 MCG/ML 2 ML Injection IV ONE (18:05)
[2024-05-02 18:23] LABS: Albumin, Blood 3.5 g/dL (3.4-5.0); Albumin/Globulin Ratio 0.9 (0.8-1.8); Bilirubin, Total 0.4 mg/dL (0.1-1.0); Bun/Creatinine Ratio 20.9 (12.0-20.0); Calcium, Blood 8.5 mg/dL (8.5-10.1); Creatinine, Blood 0.77 mg/dL (0.60-1.20); Magnesium, Blood 2.2 mg/dL (1.6-2.4); Potassium, Blood 3.8 mmol/L (3.5-5.5); Total Protein, Blood 7.5 g/dL (6.4-8.2)
[2024-05-02 21:30] VITALS: BP 132/79
== END 2024-05-02 21:35 | disposition home or self-care (01) ==
LOC: ER 17:38
PROVIDERS: Student in an Organized Health Care Education/Training Program
DX: R07.2 Precordial pain (principal); I25.2 Old myocardial infarction; I25.10 Atherosclerotic heart disease of native coronary artery without angina pectoris; E11.40 Type 2 diabetes mellitus with diabetic neuropathy, unspecified; E03.9 Hypothyroidism, unspecified; E78.5 Hyperlipidemia, unspecified; K21.9 Gastro-esophageal reflux disease without esophagitis; Z87.891 Personal history of nicotine dependence; Z79.82 Long term (current) use of aspirin; Z79.899 Other long term (current) drug therapy; Z95.5 Presence of coronary angioplasty implant and graft; Z95.1 Presence of aortocoronary bypass graft; Z88.0 Allergy status to penicillin; Z88.5 Allergy status to narcotic agent; Z88.8 Allergy status to other drugs, medicaments and biological substances; Z91.012 Allergy to eggs
CPT/HCPCS: 71046; 80053; 83690; 83735; 83880; 84484; 85025; 85379; 93005; 93010; 96374; 96375; 99285-25; J2405; J3010

== ENCOUNTER 2024-06-12 05:43 | Emergency (ER) | payer OTHER ==
[~2024-06-12] VITALS: Ht 172.7 cm; Wt 104.3 kg
[2024-06-12] MEDS ORDERED: FentaNYL Citrate 50 MCG/ML 2 ML Injection IV ONE ×2 (05:55→06:10)
[2024-06-12] MEDS ORDERED: Ondansetron HCl 2 MG / ML 2ML Vial IV ONE ×2 (05:55→06:10)
[2024-06-12 06:02] LABS: BASOPHILS ABSOLUTE AUTO 0.07 K/mm3 (0.00-0.23); BASOPHILS PERCENT AUTO 1 % (0-2); EOSINOPHILS ABSOLUTE AUTO 0.22 K/mm3 (0.00-0.68); EOSINOPHILS PERCENT AUTO 4 % (0-6); Hematocrit 43.3 % (37.0-53.0); Hemoglobin 15.8 g/dL (13.5-17.5); IMMATURE GRAN ABSOLUTE AUTO 0.01 K/mm3 (0.00-0.10); IMMATURE GRAN PERCENT AUTO 0 % (0-1); LYMPHOCYTES ABSOLUTE AUTO 1.66 K/mm3 (0.84-5.20); LYMPHOCYTES PERCENT AUTO 30 % (21-46); MONOCYTES ABSOLUTE AUTO 0.45 K/mm3 (0.16-1.47); MONOCYTES PERCENT AUTO 8 % (4-13); Mean Corpuscular HGB 32.4 pg (26.0-34.0); Mean Corpuscular HGB Conc 36.5 g/dL (31.5-36.5); Mean Corpuscular Volume 89 fL (80-100); Mean Platelet Volume 9.8 fL (9.1-12.4); NEUTROPHILS ABSOLUTE AUTO 3.08 K/mm3 (1.96-9.15); NEUTROPHILS PERCENT AUTO 56 % (41-73); Platelet Count 173 K/mm3 (150-400); RDW Coefficient Variation 12.2 % (11.7-14.2); RDW Standard Deviation 40.1 fL (35.1-46.3); Red Blood Cell Count 4.87 M/mm3 (4.30-5.90); White Blood Cell Count 5.49 K/mm3 (4.00-11.30)
[2024-06-12 06:15] LABS: Albumin, Blood 3.3 g/dL (3.4-5.0); Albumin/Globulin Ratio 0.8 (0.8-1.8); Bilirubin, Total 0.6 mg/dL (0.1-1.0); Bun/Creatinine Ratio 16.8 (12.0-20.0); Calcium, Blood 8.4 mg/dL (8.5-10.1); Creatinine, Blood 0.72 mg/dL (0.60-1.20); Globulin, Blood 3.9 g/dL (2.2-4.0); Potassium, Blood 4.2 mmol/L (3.5-5.5); Total Protein, Blood 7.2 g/dL (6.4-8.2)
[2024-06-12 09:00] VITALS: BP 139/86
== END 2024-06-12 09:20 | disposition home or self-care (01) ==
LOC: ER 05:43
PROVIDERS: Emergency Medicine
DX: I20.89 Other forms of angina pectoris (principal); E11.40 Type 2 diabetes mellitus with diabetic neuropathy, unspecified; E03.9 Hypothyroidism, unspecified; I10 Essential (primary) hypertension; E78.5 Hyperlipidemia, unspecified; K21.9 Gastro-esophageal reflux disease without esophagitis; I25.2 Old myocardial infarction; Z87.891 Personal history of nicotine dependence; Z79.82 Long term (current) use of aspirin; Z79.899 Other long term (current) drug therapy; Z88.0 Allergy status to penicillin; Z88.5 Allergy status to narcotic agent; Z91.012 Allergy to eggs; Z88.1 Allergy status to other antibiotic agents; Z88.8 Allergy status to other drugs, medicaments and biological substances
CPT/HCPCS: 71045; 80053; 84484; 85025; 93005; 93010; 96374; 96375; 96376; 99285-25; J2405; J3010

== ENCOUNTER 2024-07-16 19:54 | Inpatient (IN) | payer OTHER ==
[~2024-07-16] VITALS: Ht 177.8 cm; Wt 96.3 kg
[2024-07-16 20:15] LABS: BASOPHILS ABSOLUTE AUTO 0.06 K/mm3 (0.00-0.23); BASOPHILS PERCENT AUTO 1 % (0-2); EOSINOPHILS PERCENT AUTO 3 % (0-6); Hematocrit 42.5 % (37.0-53.0); Hemoglobin 14.9 g/dL (13.5-17.5); IMMATURE GRAN ABSOLUTE AUTO 0.02 K/mm3 (0.00-0.10); IMMATURE GRAN PERCENT AUTO 0 % (0-1); LYMPHOCYTES ABSOLUTE AUTO 1.71 K/mm3 (0.84-5.20); LYMPHOCYTES PERCENT AUTO 23 % (21-46); MONOCYTES ABSOLUTE AUTO 0.48 K/mm3 (0.16-1.47); MONOCYTES PERCENT AUTO 6 % (4-13); Mean Corpuscular HGB Conc 35.1 g/dL (31.5-36.5); Mean Corpuscular Volume 91 fL (80-100); NEUTROPHILS ABSOLUTE AUTO 5.09 K/mm3 (1.96-9.15); NEUTROPHILS PERCENT AUTO 67 % (41-73); Platelet Count 185 K/mm3 (150-400); RDW Coefficient Variation 12.6 % (11.7-14.2); RDW Standard Deviation 41.8 fL (35.1-46.3); Red Blood Cell Count 4.65 M/mm3 (4.30-5.90); White Blood Cell Count 7.56 K/mm3 (4.00-11.30)
[2024-07-16] MEDS ORDERED: HYDROmorphone HCl/Pf 1MG SYR IV ONE (20:20)
[2024-07-16] MEDS ORDERED: Lactated Ringer's 1,000 ML IV ONE (20:20)
[2024-07-16 20:36] LABS: Albumin, Blood 3.5 g/dL (3.4-5.0); Albumin/Globulin Ratio 0.9 (0.8-1.8); Bilirubin, Total 0.5 mg/dL (0.1-1.0); Bun/Creatinine Ratio 17.6 (12.0-20.0); Calcium, Blood 9.5 mg/dL (8.5-10.1); Creatinine, Blood 0.74 mg/dL (0.60-1.20); Globulin, Blood 3.8 g/dL (2.2-4.0); Magnesium, Blood 2.2 mg/dL (1.6-2.4); Potassium, Blood 4.2 mmol/L (3.5-5.5); Total Protein, Blood 7.3 g/dL (6.4-8.2)
[2024-07-16 21:33] LABS: International Normalized Ratio 1.06; Prothrombin Time Results 11.3 Sec (9.7-11.5)
[2024-07-16 22:14] LABS: Influenza A, PCR NEGATIVE (NEGATIVE); Influenza B, PCR NEGATIVE (NEGATIVE); Resp Syncytial Virus, PCR NEGATIVE (NEGATIVE); SARS-Cov-2 (COVID-19) PCR, MMC NEGATIVE (NEGATIVE)
[2024-07-16] MEDS ORDERED: OxyCODONE HCL 5 MG TAB PO PRN (23:45)
[2024-07-16] MEDS ORDERED: Acetaminophen 325 MG TABLET PO PRN (23:45)
[2024-07-16] MEDS ORDERED: Magnesium Hydroxide Conc 10 ML UDC PO PRN (23:45)
[2024-07-16] MEDS ORDERED: Bisacodyl 10 MG Supp PR PRN (23:45)
[2024-07-16] MEDS ORDERED: FentaNYL Citrate 50 MCG/ML 2 ML Injection IV PRN (23:55)
[2024-07-16] MEDS ORDERED: FLU VACC TS2024-25(6MOS UP)/PF 45 MCG/0.5 ML SYRINGE IM SCH (23:55)
[2024-07-17] MEDS ORDERED: Nitroglycerin 0.4 MG SUBL SL PRN (00:10)
--- NOTE | 2024-07-17 01:20 | NUR ---
ARRIVAL TO UNIT PT ARRIVED TO UNIT VIA GOURNEY. 4 PERSON SLIDE TO BED R/T PAIN. PT TOLERATED FAIRLY. PERSONAL CLOTHING ITEMS REMOVED AND PLACED IN BAG, GOWN PLACED ON PT. A&O x4. PT REPORTS ELEVATED PAIN TO R LOWER EXTREMITY & L HIP S/P GLF. PT STATES BASELINE NEUROPATHY c TINGLING/PAIN TO ALL EXTREMITIES FROM PAST CHEMO MEDICATION SIDE EFFECT. PT STATES NEW NUMBNESS FROM R THIGH TO TOES. PT ABLE TO FOLLOW COMMANDS, VERBALIZES PAIN c MOVEMENT IN BED. ABRASIONS FROM FALL VISUALIZED ON R BUTTOCK, BILAT SHINS. PT MEDICATED PER EMAR FOR PAIN. WATER/ SNACK PROVIDED. ORIENTED TO UNIT, BED IN LOWEST POSITION, CALL LIGHT IN REACH.
[2024-07-17 01:30] VITALS: BP 138/94
[2024-07-17 04:23] VITALS: BP 132/83
[2024-07-17] MEDS ORDERED: FentaNYL Citrate 50 MCG/ML 2 ML Injection IV PRN ×2 (04:25→06:20)
[2024-07-17 05:12] LABS: BASOPHILS ABSOLUTE AUTO 0.06 K/mm3 (0.00-0.23); BASOPHILS PERCENT AUTO 1 % (0-2); EOSINOPHILS ABSOLUTE AUTO 0.26 K/mm3 (0.00-0.68); EOSINOPHILS PERCENT AUTO 4 % (0-6); Hematocrit 40.9 % (37.0-53.0); Hemoglobin 14.3 g/dL (13.5-17.5); IMMATURE GRAN ABSOLUTE AUTO 0.02 K/mm3 (0.00-0.10); IMMATURE GRAN PERCENT AUTO 0 % (0-1); LYMPHOCYTES ABSOLUTE AUTO 1.64 K/mm3 (0.84-5.20); LYMPHOCYTES PERCENT AUTO 27 % (21-46); MONOCYTES ABSOLUTE AUTO 0.44 K/mm3 (0.16-1.47); MONOCYTES PERCENT AUTO 7 % (4-13); Mean Corpuscular HGB 32.1 pg (26.0-34.0); Mean Corpuscular Volume 92 fL (80-100); NEUTROPHILS ABSOLUTE AUTO 3.59 K/mm3 (1.96-9.15); NEUTROPHILS PERCENT AUTO 60 % (41-73); Platelet Count 163 K/mm3 (150-400); RDW Coefficient Variation 12.6 % (11.7-14.2); RDW Standard Deviation 42.2 fL (35.1-46.3); Red Blood Cell Count 4.46 M/mm3 (4.30-5.90); White Blood Cell Count 6.01 K/mm3 (4.00-11.30)
[2024-07-17] MEDS ORDERED: Omeprazole 20 MG CapCR PO SCH (06:00)
--- NOTE | 2024-07-17 06:15 | NUR ---
DR CONSULT PT REPORTS INCREASED PAIN, NOT RELIEVED BY CURRENT MEDICATION REGIME. DR INCREASED OXY TO 10MG Q4P AND FENT TO 25-50 Q2P. ORDERES UPDATED.
[2024-07-17] MEDS ORDERED: OxyCODONE HCL 5 MG TAB PO PRN (06:20)
[2024-07-17 06:36] LABS: Albumin, Blood 3.1 g/dL (3.4-5.0); Bilirubin, Total 0.5 mg/dL (0.1-1.0); Calcium, Blood 8.5 mg/dL (8.5-10.1); Creatinine, Blood 0.67 mg/dL (0.60-1.20); Globulin, Blood 3.1 g/dL (2.2-4.0); Potassium, Blood 3.7 mmol/L (3.5-5.5); Total Protein, Blood 6.2 g/dL (6.4-8.2)
[2024-07-17 07:21] VITALS: BP 143/86
[2024-07-17] MEDS ORDERED: Insulin Human Lispro 100 Units/ML 3ML Syringe SC SCH (07:30)
--- NOTE | 2024-07-17 07:43 | NUR ---
SHIFT SUMMARY S/P CHEST PAIN, L HIP PAIN, R LOWER EXTREMITY PAIN R/T GLF ON 07.14 NO ACUTE CHANGES OVERNIGHT. VSS. TOLERATING DIET. VOIDING USING URINAL IND. NO BM OVERNIGHT. PT AMBULATES USING GB c 2 PERSON MOD/MAX ASSIST TO BATHROOM. PT STILL REPORTS RLE NUMB FROM APPROX L2 TO TOES. MEPILEX INTACT ON R BUTTOCKS. PT REPORTS PAIN REMAINS ELEVATED DESPITE MEDICATION PER EMAR & NON-PHARM INTERVENTIONS. ANTICIPATED MRI LATER TODAY. CALL LIGHT IN REACH, PT RESTING ON L SIDE, BED IN LOWEST POSITION, REPORT GIVEN TO CLAUDIA CABAN.
[2024-07-17] MEDS ORDERED: LORazepam 1 MG Tab PO PRN (08:10)
[2024-07-17] MEDS ORDERED: Aspirin 81 MG Chew PO SCH (09:00)
[2024-07-17] MEDS ORDERED: Sennosides 8.6 MG Tab PO SCH (09:00)
[2024-07-17] MEDS ORDERED: Aspirin 325 MG Tab PO SCH (09:00)
[2024-07-17] MEDS ORDERED: Tamsulosin HCl 0.4 MG Cap PO SCH (09:00)
[2024-07-17] MEDS ORDERED: Docusate Sodium 100 MG Cap PO SCH (09:00)
[2024-07-17] MEDS ORDERED: Loratadine 10 MG Tab PO SCH (09:00)
[2024-07-17] MEDS ORDERED: Gabapentin 400 MG Cap PO SCH (09:00)
[2024-07-17] MEDS ORDERED: Losartan Potassium 25 MG Tab PO SCH (09:00)
[2024-07-17] MEDS ORDERED: Metoprolol Succinate 50 MG TABCR PO SCH (09:00)
[2024-07-17] MEDS ORDERED: Isosorbide Mononitrate 30 MG TABCR PO SCH (09:00)
[2024-07-17] MEDS ORDERED: Enoxaparin 40 MG/0.4 ML SYR SC SCH (09:00)
[2024-07-17] MEDS ORDERED: Ondansetron HCl 2 MG / ML 2ML Vial IV PRN (11:00)
--- NOTE | 2024-07-17 11:04 | NUR ---
Pt. is awake in bed when he welcomes my visit. Pt. is pleasant, and is able to varbalize his understanding of his medical plan of care. Listen with empathy and interest. Pt. verbalizes that while he is currently houseless, he is a man of tereza. Considered matters of tereza and belief. Pt. displayed evidence of trust and engagement. Prayed with Pt. Pt. 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
--- NOTE | 2024-07-17 11:53 | NUR ---
chest pain pt called and reported 7/10 chest pain radiating down l arm and pt stated felt like someone "punched me in the jaw". called dr vega. obtained ekg, which dr vega reviewed. vss. troponin drawn per orders. medicated pt per orders for pain. resting in bed, call light in reach.
[2024-07-17 11:55] VITALS: BP 142/89
--- NOTE | 2024-07-17 14:53 | NUR ---
PT TO MRI
[2024-07-17 16:40] VITALS: BP 114/74
--- NOTE | 2024-07-17 17:02 | NUR ---
SUMMARY PT HAS BEEN PAINFUL T/O DAY. MEDICATED PER ORDERS FOR PAIN. RESTING IN BED NOW. PT REPORTED CHEST PAIN THAT RADIATED DOWN L ARM AND INTO JAW EARLIER IN SHIFT. EKG DONE, WHICH DR LESTER REVIEWED. TROPONINS WNL. PT MEDICATED AT THAT TIME WITH FENTANYL AND REPORTED PAIN IMPROVED FROM 7 TO 4/10. PT MEDICATED ONCE DURING SHIFT FOR NAUSEA. MRI COMPLETED THIS AFTERNOON. PT AMBULATES TO RESTROOM W/FWW AND ONE PERSON ASSIST. PLEASANT AND COOPERATIVE. CALL LIGHT IN REACH.
[2024-07-17 19:19] VITALS: BP 106/71
[2024-07-17] MEDS ORDERED: Mirtazapine 30 MG Tab PO SCH (21:00)
[2024-07-17] MEDS ORDERED: Atorvastatin 10 MG Tab PO SCH (21:00)
[2024-07-18 04:33] VITALS: BP 142/79
--- NOTE | 2024-07-18 06:26 | NUR ---
SHIFT SUMMARY NOC. PT ADMIT FOR LOWER EXT WEAKNESS. PT MEDICATED FOR PAIN X2 WITH REPORTED RELIEF OF SX. PT DIZZY WITH AMBULATION AND REPORTS THIS IS BASELINE, PT AMBULATES WITH FWW, GAIT BELT, AND SBA. PT VOIDING URINE. PT HAD NO ACUTE EVENTS THIS SHIFT. CALL LIGHT IN REACH.
[2024-07-18 07:41] VITALS: BP 116/61
[2024-07-18 15:41] VITALS: BP 114/76
--- NOTE | 2024-07-18 18:06 | NUR ---
SUMMARY: NO ACUTE CHANGE TODAY. VSS, A/O. PAIN SEEMS TO BE MANAGED WITH 2 OXY AND FENTANYAL FOR BREAKTHROUGH PAIN. PT HAS CHRONIC PAIN. PT ABLE TO AMBULATE IN HALLS WITH THERAPY WITHOUT DIFFICULTY. INDEP IN ROOM.NO ACUTE SAFETY CONCERNS, PT USES CALL LIGHT AND MAKES NEEDS KNOWN.
[2024-07-18 20:18] VITALS: BP 107/72
[2024-07-19 04:24] VITALS: BP 134/75
--- NOTE | 2024-07-19 06:22 | NUR ---
SHIFT SUMMARY NOC. PT A/O X4, PT HAS IMPROVED STRENGTH IN EXTREMITIES. PT AMBULATED WELL IN HALLS THIS EVENING WITH FWW. DENIED DIZZINESS. PT MEDICATED FOR PAIN WITH ORAL OXY X2 AND NEEDED BREAK THROUGH FENT X1. PT VOIDING URINE AND TOLERATING PO. DM DIET EDUCATION PROVIDED PT FREQUENTLY ASKED FOR JUICE OR REGULAR PEPSI. PT MEDICATED FOR NAUSEA X1 WITH RELIEF, NO VOMITTING. CALLS APPROPRIATLY.
[2024-07-19 07:03] VITALS: BP 96/59
[2024-07-19 07:04] VITALS: BP 101/57
[2024-07-19] MEDS ORDERED: FentaNYL Citrate 50 MCG/ML 2 ML Injection IV PRN (08:00)
--- NOTE | 2024-07-19 10:38 | NUR ---
Pt. is awake in bed and welcomes my visit. Pt. is pleasant and rapport is re-established. Pt. verbalized his progress with PT, but is uncertain about his on-going plan of care. Pt. displayed evidence of awareness and engagement. Soought to normalize the Pt. experience. Prayed with pt. Pt. verbalized gratitude for the spiritual care visit. will remain available to the Pt.
[2024-07-19] MEDS ORDERED: Lactulose 20 GM/30 ML UDC PO ONE (12:00)
[2024-07-19] MEDS ORDERED: OxyCODONE HCL 10 MG TABCR PO SCH (12:00)
[2024-07-19 14:32] VITALS: BP 121/82
--- NOTE | 2024-07-19 19:20 | NUR ---
SHIHFT SUMMARY S/P BLE WEAKNESS, A/OX4, VSS, TOLERATING PO, PAIN MANAGED BETTER TODAY, INDEPENDENT IN THE ROOM. NO ACUTE EVENTS THIS SHIFT, CALL LIGTH IN REACH.
[2024-07-19 19:40] VITALS: BP 119/86
[2024-07-20 04:18] VITALS: BP 120/82
--- NOTE | 2024-07-20 06:28 | NUR ---
SHIFT SUMMARY NOC. PT A/O X4, PT AMBULATING HALLS THIS SHIFT WITH WALKER. REPORTS PAIN CONTROL IMPROVED WITH NEW SCHEDULED REGIMEN. PT MEDICATED X1 FOR BREAKTHROUGH. PT HAD NO ACUTE EVENTS. CALL LIGHT IN REACH.
[2024-07-20 07:07] VITALS: BP 116/78
[2024-07-20 14:44] VITALS: BP 100/73
[2024-07-20] MEDS ORDERED: ATOR40TA PO (18:20)
[2024-07-20] MEDS ORDERED: Neurontin800 MG PO (18:21)
--- NOTE | 2024-07-20 18:38 | NUR ---
SHIFT SUMMARY S/P LEG WEAKNESS, A/OX4, VSS, TOLERATING PO, AMBULATING IN THE HALLS, BM THIS SHIFT, IMPROVED LEG STRENGTH, PAIN WELL MANAGED PER EMAR. NO ACUTE EVENTS THIS SHIFT, CALL LIGHT IN REACH.
[2024-07-20 19:41] VITALS: BP 112/73
[2024-07-21 04:28] VITALS: BP 132/80
--- NOTE | 2024-07-21 04:43 | NUR ---
SHIFT SUMMARY NO ACUTE CHANGES TO REPORT OVERNIGHT. PT HAS BEEN INDEPENDENT IN THE ROOM. PAIN MANANGED WITH MEDS PER EMAR. VITALS STABLE. PLAN OF CARE UNCHANGED, BED IN LOWEST POSITION, CALL LIGHT WITHIN REACH.
[2024-07-21 07:12] VITALS: BP 148/82
--- NOTE | 2024-07-21 10:32 | NUR ---
PT C/O CP REPORTS HEAVINESS AND PAIN IN CHEST, RATING 4/10. MEDICATED PER ORDERS W/ OXYCODONE. ASKED PT IF THOUGHT MAYBE ANXIETY AND PT STATED DIDN'T KNOW. REPORTED TO DR STRATTON. ORDERS OBTAINED FOR EKG AND TROPONIN.
[2024-07-21] MEDS ORDERED: LORazepam 1 MG Tab PO ONE (11:50)
--- NOTE | 2024-07-21 11:50 | NUR ---
PT STATES NOT FEELING WELL REPORTING CHEST PRESSURE. EKG DONE AND TROPININ COMPLETED. GAVE RESULTS TO DR STRATTON. ORDERS OBTAINED FOR OT DOSE ATIVAN. PT RESTING IN BED, CALL LIGHT IN REACH.
--- NOTE | 2024-07-21 13:38 | NUR ---
pt resting in bed, stated chest "still doesn't feel great". stated ot dose of ativan seemed to calm him "somewhat". call light in reach.
--- NOTE | 2024-07-21 14:00 | NUR ---
DR STRATTON IN TO SEE PT.
[2024-07-21 15:34] VITALS: BP 119/75
--- NOTE | 2024-07-21 17:25 | NUR ---
SUMMARY PT REPORTS CP IMPROVED SLIGHTLY THIS EVENING. DR STRATTON AWARE OF PT'S SYMPTOMSS. EKG WAS DONE THIS SHIFT WELL TROPONIN. ORDERS OBTAINED FOR LABS THIS EVENING AND IN AM. MEDICATED PT PER ORDERS FOR PAIN AND NAUSEA THIS AFTERNOON. NOW RESTING WITH EYES CLOSED, BREATHIING E/U. CALL LIGHT IN REACH.
[2024-07-21] MEDS ORDERED: Isosorbide Mononitrate 30 MG TABCR PO STA (18:10)
[2024-07-21 18:22] VITALS: BP 123/78
[2024-07-21 20:27] VITALS: BP 124/73
[2024-07-22 04:25] VITALS: BP 97/65
--- NOTE | 2024-07-22 04:42 | NUR ---
SHIFT SUMMARY PT IS A/O X4, IND IN ROOM. PT CURRENTLY DENIES CHEST PAIN, HAS BEEN ABLE TO REST MOST OF SHIFT. BACK PAIN MANAGED WITH SCHEDULED AND PRN PO MEDS PER EMAR. VSS. CONT BIOX ON. PROTECTIVE DRESSING ON R HIP ABRASION. PT CALLING APPROPRIATELY.
[2024-07-22 05:12] LABS: CHOL/HDL RATIO 5.2; Cholesterol 146 mg/dL (50-200); HDL Cholesterol 28 mg/dL (>39); LDL/HDL RATIO 2.9; Low Density Lipoprotein Chol 80 mg/dL (0-110); Triglycerides 191 mg/dL (30-160); Very Low Density Lipoprot Chol 38 mg/dL (6-32)
[2024-07-22 07:11] VITALS: BP 134/81
[2024-07-22] MEDS ORDERED: Isosorbide Mononitrate 60 MG TABCR PO SCH (09:00)
[2024-07-22] MEDS ORDERED: ISOSORBIDE MONO60 MG PO (10:21)
--- NOTE | 2024-07-22 11:09 | NUR ---
PT SHOWERED PLACED NEW DRESSING TO ABRASION ON R BUTTOCK. PROVIDED DRESSING CHANGES FOR PT TO USE UPON DC.
[2024-07-22 12:50] VITALS: BP 128/78
--- NOTE | 2024-07-22 13:00 | NUR ---
discharged VSS. DC'D IV, CATHETER INTACT. REVIEWED DC INSTRUCTIONS/ VERBALIZED UNDERSTANDING. PRESCRIPTION FAXED TO [facility] PER PT REQUEST. REC'D VERIFICATION OF RECEIPT. PT TAKEN OUT FRONT IN WC W/POSSESSIONS AND DC PAPERWORK IN HAND TO MEET TAXI.
== END 2024-07-22 13:00 | disposition home or self-care (01) | DRG 556 ==
LOC: ER 19:54 → SURS 19:55
PROVIDERS: Family Medicine; Internal Medicine; Student in an Organized Health Care Education/Training Program; ADMIT Student in an Organized Health Care Education/Training Program
DX: R29.898 Other symptoms and signs involving the musculoskeletal system (principal); Z59.00 Homelessness unspecified; I25.10 Atherosclerotic heart disease of native coronary artery without angina pectoris; E11.9 Type 2 diabetes mellitus without complications; K21.9 Gastro-esophageal reflux disease without esophagitis; E03.9 Hypothyroidism, unspecified; I10 Essential (primary) hypertension; E78.5 Hyperlipidemia, unspecified; G20.A1 Parkinson's disease without dyskinesia, without mention of fluctuations; F02.80 Dementia in other diseases classified elsewhere, unspecified severity, without behavioral disturbance, psychotic disturbance, mood disturbance, and anxiety; M48.061 Spinal stenosis, lumbar region without neurogenic claudication; R32 Unspecified urinary incontinence; N40.0 Benign prostatic hyperplasia without lower urinary tract symptoms; G89.29 Other chronic pain; I25.2 Old myocardial infarction; Z92.21 Personal history of antineoplastic chemotherapy; Z98.1 Arthrodesis status; Z98.890 Other specified postprocedural states; Z87.891 Personal history of nicotine dependence; Z95.1 Presence of aortocoronary bypass graft; Z88.0 Allergy status to penicillin; Z88.6 Allergy status to analgesic agent; Z88.8 Allergy status to other drugs, medicaments and biological substances; Z91.012 Allergy to eggs; Z79.82 Long term (current) use of aspirin; Z79.899 Other long term (current) drug therapy; W01.198A Fall on same level from slipping, tripping and stumbling with subsequent striking against other object, initial encounter; Y92.009 Unspecified place in unspecified non-institutional (private) residence as the place of occurrence of the external cause
CPT/HCPCS: 0241U; 36415; 70450; 71260; 72125; 72158; 74177; 80053; 80061; 82947; 83690; 83735; 84100; 84484; 85025; 85610; 85730; 93005; 93010; 94762; 96361; 96372; 96374-59; 96375; 96376; 97110; 97116; 97162; 97165; 97530; 97535; 99285-25; A9270; A9579; G0378; J1170; J1650; J2405; J3010; J7120; Q9967

== ENCOUNTER 2024-08-10 02:21 | Observation (INO) | payer OTHER ==
[~2024-08-10] VITALS: Ht 177.8 cm; Wt 98.5 kg
[~2024-08-10 02:21] MED LIST changes: +CELEXA40 M1 PO; +Gabapentin600 MG PO; +NITROLINGUAL12 GM SL; +Neurontin800 MG PO
[2024-08-10] MEDS ORDERED: FentaNYL Citrate 50 MCG/ML 2 ML Injection IV PRN ×2 (03:05→07:00)
[2024-08-10] MEDS ORDERED: Morphine Sulfate 4 MG/1 ML Injection IV ONE ×2 (03:05→06:30)
[2024-08-10 03:10] LABS: BASOPHILS ABSOLUTE AUTO 0.09 K/mm3 (0.00-0.23); BASOPHILS PERCENT AUTO 1 % (0-2); EOSINOPHILS ABSOLUTE AUTO 0.26 K/mm3 (0.00-0.68); EOSINOPHILS PERCENT AUTO 4 % (0-6); Hematocrit 43.1 % (37.0-53.0); Hemoglobin 15.3 g/dL (13.5-17.5); IMMATURE GRAN ABSOLUTE AUTO 0.01 K/mm3 (0.00-0.10); IMMATURE GRAN PERCENT AUTO 0 % (0-1); LYMPHOCYTES ABSOLUTE AUTO 1.73 K/mm3 (0.84-5.20); LYMPHOCYTES PERCENT AUTO 26 % (21-46); MONOCYTES ABSOLUTE AUTO 0.47 K/mm3 (0.16-1.47); MONOCYTES PERCENT AUTO 7 % (4-13); Mean Corpuscular HGB 32.3 pg (26.0-34.0); Mean Corpuscular HGB Conc 35.5 g/dL (31.5-36.5); Mean Corpuscular Volume 91 fL (80-100); Mean Platelet Volume 9.6 fL (9.1-12.4); NEUTROPHILS ABSOLUTE AUTO 4.01 K/mm3 (1.96-9.15); NEUTROPHILS PERCENT AUTO 61 % (41-73); Platelet Count 184 K/mm3 (150-400); RDW Coefficient Variation 12.6 % (11.7-14.2); RDW Standard Deviation 41.8 fL (35.1-46.3); Red Blood Cell Count 4.74 M/mm3 (4.30-5.90); White Blood Cell Count 6.57 K/mm3 (4.00-11.30)
[2024-08-10 04:00] LABS: Alanine Aminotransfer (ALT/SGP 39 U/L (12-78); Albumin, Blood 3.3 g/dL (3.4-5.0); Albumin/Globulin Ratio 0.9 (0.8-1.8); Alk Phos 71 U/L (50-136); Anion Gap 7 mmol/L (3-11); Aspartate Aminotrans (AST/SGOT 49 U/L (12-37); Bilirubin, Total 0.5 mg/dL (0.1-1.0); Blood Urea Nitrogen 14 mg/dL (8-24); Bun/Creatinine Ratio 20.5 (12.0-20.0); CO2, Blood 25 mmol/L (21-32); Calcium, Blood 8.5 mg/dL (8.5-10.1); Chloride, Blood 111 mmol/L (98-108); Creatinine, Blood 0.68 mg/dL (0.60-1.20); Ethanol (Alcohol), Blood, Med <3 mg/dL; Globulin, Blood 3.7 g/dL (2.2-4.0); Glomerular Filtration Rate 106 (60-); Glucose, Blood 175 mg/dL (70-99); Potassium, Blood 4.4 mmol/L (3.5-5.5); Sodium, Blood 139 mmol/L (136-145)
[2024-08-10 04:38] LABS: International Normalized Ratio 1.04; Prothrombin Time Results 11.1 Sec (9.7-11.5)
[2024-08-10] MEDS ORDERED: Mag Hydrox/AL Hydrox/Simeth 30 ML UDC PO ONE (04:40)
[2024-08-10] MEDS ORDERED: Lidocaine 2% Viscous Soln 15 ML UDC PO ONE (04:45)
[2024-08-10 05:25] LABS: Source, Urine Clean Catch
[2024-08-10 05:44] LABS: Appearance, Urine Clear (Clear); Bilirubin, Urine Neg (Neg); Blood, Urine Neg (Neg); Color, Urine Yellow (P-Yellow); Glucose Qualitative, Urine Neg (Neg); Ketones, Urine Neg (Neg); Leukocyte Esterase, Urine Neg (Neg); Nitrite, Urine Neg (Neg); Protein, Urine 1+ (Neg); Urobilinogen, Urine NORM (Normal)
[2024-08-10 06:01] LABS: U Amphetamine Screen Not Detected; U Barbituate Screen Not Detected; U Benzodiazapine Screen Not Detected; U Buprenorphine Screen Not Detected; U Cannabinoids Screen DETECTED; U Cocaine Screen Not Detected; U Methadone Screen Not Detected; U Methamphetamine Screen Not Detected; U Opiates Screen DETECTED; U Oxycodone Screen Not Detected; U Phencyclidine Screen Not Detected
[2024-08-10] MEDS ORDERED: Diphth,Pertuss(Acell),Tet Vac 0.5 ML VIAL IM ONE (06:30)
[2024-08-10] MEDS ORDERED: Ondansetron HCl 2 MG / ML 2ML Vial IV PRN (06:45)
[2024-08-10] MEDS ORDERED: NS 1,000 ML IV SCH (06:45)
[2024-08-10] MEDS ORDERED: FLU VACC TS2024-25(6MOS UP)/PF 45 MCG/0.5 ML SYRINGE IM SCH (06:50)
[2024-08-10] MEDS ORDERED: FentaNYL Citrate 50 MCG/ML 2 ML Injection IV ONE (07:00)
[2024-08-10] MEDS ORDERED: Mag Hydrox/Al Hydrox/Simeth 18 ML,Lidocaine 2% Viscous Soln 9 ML,Atropine/Scopalam/Hyos... PO PRN (07:05)
[2024-08-10] MEDS ORDERED: NS 1,000 ML IV ONE (07:06)
[2024-08-10] MEDS ORDERED: Nitroglycerin 0.4 MG SUBL SL PRN (07:20)
[2024-08-10] MEDS ORDERED: Ranolazine 500 MG ER Tablet PO SCH (09:00)
[2024-08-10] MEDS ORDERED: Gabapentin 300 MG Cap PO SCH (09:00)
[2024-08-10] MEDS ORDERED: Aspirin 81 MG Chew PO SCH (09:00)
[2024-08-10] MEDS ORDERED: Citalopram Hydrobromide 20 MG Tab PO SCH (09:00)
[2024-08-10] MEDS ORDERED: OxyCODONE HCL 5 MG TAB PO SCH (09:00)
[2024-08-10] MEDS ORDERED: Metoprolol Succinate 50 MG TABCR PO SCH (09:00)
[2024-08-10] MEDS ORDERED: Atorvastatin 10 MG Tab PO SCH (09:00)
[2024-08-10] MEDS ORDERED: Losartan Potassium 50 MG Tab PO SCH (09:00)
[2024-08-10] MEDS ORDERED: Enoxaparin 40 MG/0.4 ML SYR SC SCH (09:00)
[2024-08-10] MEDS ORDERED: Tamsulosin HCl 0.4 MG Cap PO SCH (09:00)
[2024-08-10 18:04] VITALS: BP 144/93
--- NOTE | 2024-08-10 18:18 | NUR ---
arrival to pcu/shift summary patient arrived to pcu at approx 1730. vital signs stable. tele sinus rhythm 70s. patient reports chest heaviness that has been off and on this hospital stay. patient is alert and oriented x4. neuro is intact. patient is able to make needs known. denies shortness of breath. plan for second part of stress test in the morning npo at midnight, no caffiene or nitrates past 1900. admit complete. med rec not complete need to confirm doses of medications. plan of care is up to date.
[2024-08-10 19:30] VITALS: BP 131/84
[2024-08-10] MEDS ORDERED: Mirtazapine 30 MG Tab PO SCH (21:00)
--- NOTE | 2024-08-11 04:15 | NUR ---
SHIFT SUMMARY 59 YR M ADMITTED ON 08/10/24. FULL CODE. PT C/O CHEST PAIN DESCRIBED HEAVINESS AND REQUESATED PAIN MEDS. HE WAS GIVEN FENTANYL PER EMAR. PER MANAGER ORACLE PT HAD SOME ST ELEVATION SO EKG WAS DONE WITH RESULTS THAT WERE UNREMARKABLE. PRINT OUT IS IN PT CHART. PT SLEPT OFF AND ON THROUGHOUT THE NIGHT. HE IS A&O X 4 AND PLEASANT AND COOPERATIVE WITH CARE. HE HAS BEEN NPO SINCE MIDNIGHT IN ANTICIPATION OF STRESS TEST TODAY. BED IN LOW POSITION AND CALL LIGHT IN REACH.
[2024-08-11 04:52] LABS: BASOPHILS PERCENT AUTO 2 % (0-2); EOSINOPHILS ABSOLUTE AUTO 0.33 K/mm3 (0.00-0.68); EOSINOPHILS PERCENT AUTO 5 % (0-6); Hematocrit 42.9 % (37.0-53.0); Hemoglobin 14.6 g/dL (13.5-17.5); IMMATURE GRAN ABSOLUTE AUTO 0.01 K/mm3 (0.00-0.10); IMMATURE GRAN PERCENT AUTO 0 % (0-1); LYMPHOCYTES ABSOLUTE AUTO 1.97 K/mm3 (0.84-5.20); LYMPHOCYTES PERCENT AUTO 31 % (21-46); MONOCYTES ABSOLUTE AUTO 0.56 K/mm3 (0.16-1.47); MONOCYTES PERCENT AUTO 9 % (4-13); Mean Corpuscular Volume 94 fL (80-100); Mean Platelet Volume 9.3 fL (9.1-12.4); NEUTROPHILS ABSOLUTE AUTO 3.44 K/mm3 (1.96-9.15); NEUTROPHILS PERCENT AUTO 54 % (41-73); Platelet Count 155 K/mm3 (150-400); RDW Coefficient Variation 12.6 % (11.7-14.2); RDW Standard Deviation 43.4 fL (35.1-46.3); Red Blood Cell Count 4.56 M/mm3 (4.30-5.90); White Blood Cell Count 6.41 K/mm3 (4.00-11.30)
[2024-08-11 05:38] LABS: Albumin/Globulin Ratio 0.9 (0.8-1.8); Bilirubin, Total 0.4 mg/dL (0.1-1.0); Bun/Creatinine Ratio 15.6 (12.0-20.0); Calcium, Blood 8.8 mg/dL (8.5-10.1); Creatinine, Blood 0.77 mg/dL (0.60-1.20); Globulin, Blood 3.5 g/dL (2.2-4.0); Potassium, Blood 4.2 mmol/L (3.5-5.5); Total Protein, Blood 6.5 g/dL (6.4-8.2)
[2024-08-11 07:18] VITALS: BP 130/83
[2024-08-11] MEDS ORDERED: Insulin Human Lispro 100 Units/ML 3ML Syringe SC SCH (07:40)
[2024-08-11] MEDS ORDERED: Aminophylline 250MG / 10ML 10 ML Vial ONE (07:55)
[2024-08-11] MEDS ORDERED: Regadenoson 0.4 MG/5 ML SYRINGE ONE (07:56)
--- NOTE | 2024-08-11 09:12 | NUR ---
AM NOTE Assumed care at 0700. Pt alert and oriented x4, neuro intact, makes needs known and uses call light appropriately. vital signs signs stable, lung sounds clear in all wilson, denies shortness of breath. Pt reporting chest pain and heaviness. Ambulating in his room independently. Has been NPO since 1899 on 08/10. Cardiology in to conduct second part of stress test at 0800. Awaiting results. Plan of care is up to date.
--- NOTE | 2024-08-11 10:54 | NUR ---
med rec-not complete unable to complete med rec due to [facility] being [facility] the weekend and patient unsure of doses for medications.
[2024-08-11] MEDS ORDERED: ISOSORBIDE MONO30 MG PO (11:04)
[2024-08-11] MEDS ORDERED: ASPI81CH PO (11:06)
[2024-08-11] MEDS ORDERED: LORA10ER PO (11:06)
[2024-08-11] MEDS ORDERED: LOSARTAN POTASS25 M2 PO (11:07)
[2024-08-11] MEDS ORDERED: OMEP20ER PO (11:08)
[2024-08-11] MEDS ORDERED: METOPROLOL SUCC25 MG PO (11:08)
--- NOTE | 2024-08-11 11:33 | NUR ---
update-meds this rn went off of patients med rec from discharge last month. patient stating no changes since previous addmission. med rec is complete
[2024-08-11 11:42] VITALS: BP 126/63
[2024-08-11] MEDS ORDERED: CELEXA40 M1 PO (15:30)
[2024-08-11] MEDS ORDERED: RANO500T PO (15:30)
--- NOTE | 2024-08-11 16:20 | NUR ---
DISCHARGE SUMMARY PT GIVEN WRITTEN AND VERBAL DISCHARGE INSTRUCTIONS. DISCUSSED MEDICATION CHANGES. PRESCRIPTIONS FAXED TO [facility]. PT ESCORTED TO HOSPITAL EXIT VIA WHEELCHAIR AND INTO AWAITING TAXI. PT LEFT WITH ALL BELONGINGS. IV REMOVED AND SITE DRESSED WITH GAUZE AND COBAN.
== END 2024-08-11 16:28 | disposition home or self-care (01) ==
LOC: ER 02:21 → ERHOLD 02:22 → PCU 17:31
PROVIDERS: Emergency Medicine; ADMIT Internal Medicine
DX: R07.89 Other chest pain (principal); E11.9 Type 2 diabetes mellitus without complications; I10 Essential (primary) hypertension; E78.5 Hyperlipidemia, unspecified; E03.9 Hypothyroidism, unspecified; I25.10 Atherosclerotic heart disease of native coronary artery without angina pectoris; I25.2 Old myocardial infarction; N40.0 Benign prostatic hyperplasia without lower urinary tract symptoms; Z87.891 Personal history of nicotine dependence; Z95.5 Presence of coronary angioplasty implant and graft; Z79.82 Long term (current) use of aspirin; Z79.899 Other long term (current) drug therapy; Z59.00 Homelessness unspecified; Z88.0 Allergy status to penicillin; Z88.1 Allergy status to other antibiotic agents; Z88.5 Allergy status to narcotic agent; Z88.8 Allergy status to other drugs, medicaments and biological substances; Z91.012 Allergy to eggs; Z98.1 Arthrodesis status
CPT/HCPCS: 36415; 70450; 71260; 72125; 73562-RT; 78452; 80053; 80320; 82947; 83605; 83690; 83880; 84484; 85025; 85610; 85730; 90471; 90715; 93005; 93010; 93017; 96372; 96374; 96375; 96376; 99285-25; A9270; A9500; C8929; G0378; J0280; J1650; J2270; J2405; J2785; J3010; J7030; L0160; Q9957; Q9967

== ENCOUNTER 2024-11-10 15:45 | Emergency (ER) | payer OTHER ==
[~2024-11-10] VITALS: Ht 177.8 cm; Wt 93.4 kg
[~2024-11-10 15:45] MED LIST changes: +ISOSORBIDE MONO30 MG PO; +LORA10ER PO; +LOSARTAN POTASS25 M2 PO; +METOPROLOL SUCC25 MG PO; +RANO500T PO
[2024-11-10] MEDS ORDERED: Clindamycin HCl 150 MG Cap PO ONE (19:55)
[2024-11-10] MEDS ORDERED: Trimethoprim/Sulfamethoxazole DS Tab PO ONE (20:00)
[2024-11-10] MEDS ORDERED: CLIN300 PO (20:07)
[2024-11-10] MEDS ORDERED: SULTRIDS PO (20:07)
[2024-11-10 20:30] VITALS: BP 134/82
== END 2024-11-10 20:31 | disposition home or self-care (01) ==
LOC: ER 15:45
DX: E11.621 Type 2 diabetes mellitus with foot ulcer (principal); L97.519 Non-pressure chronic ulcer of other part of right foot with unspecified severity; E11.40 Type 2 diabetes mellitus with diabetic neuropathy, unspecified; E03.9 Hypothyroidism, unspecified; I10 Essential (primary) hypertension; E78.5 Hyperlipidemia, unspecified; K21.9 Gastro-esophageal reflux disease without esophagitis; Z87.891 Personal history of nicotine dependence; Z79.899 Other long term (current) drug therapy; Z79.82 Long term (current) use of aspirin; Z88.0 Allergy status to penicillin; Z88.5 Allergy status to narcotic agent; Z91.012 Allergy to eggs; Z88.1 Allergy status to other antibiotic agents; Z88.8 Allergy status to other drugs, medicaments and biological substances
CPT/HCPCS: 73630; 99284-25; A9270

== ENCOUNTER 2025-01-27 22:05 | Emergency (ER) | payer OTHER ==
[~2025-01-27] VITALS: Ht 177.8 cm; Wt 92.5 kg
[2025-01-27 22:22] LABS: BASOPHILS ABSOLUTE AUTO 0.07 K/mm3 (0.00-0.23); BASOPHILS PERCENT AUTO 1 % (0-2); EOSINOPHILS ABSOLUTE AUTO 0.18 K/mm3 (0.00-0.68); EOSINOPHILS PERCENT AUTO 2 % (0-6); Hematocrit 39.9 % (37.0-53.0); Hemoglobin 13.9 g/dL (13.5-17.5); IMMATURE GRAN ABSOLUTE AUTO 0.03 K/mm3 (0.00-0.10); IMMATURE GRAN PERCENT AUTO 0 % (0-1); LYMPHOCYTES ABSOLUTE AUTO 1.65 K/mm3 (0.84-5.20); LYMPHOCYTES PERCENT AUTO 17 % (21-46); MONOCYTES ABSOLUTE AUTO 0.68 K/mm3 (0.16-1.47); MONOCYTES PERCENT AUTO 7 % (4-13); Mean Corpuscular HGB 32.6 pg (26.0-34.0); Mean Corpuscular HGB Conc 34.8 g/dL (31.5-36.5); Mean Corpuscular Volume 94 fL (80-100); Mean Platelet Volume 8.8 fL (9.1-12.4); NEUTROPHILS ABSOLUTE AUTO 7.23 K/mm3 (1.96-9.15); NEUTROPHILS PERCENT AUTO 74 % (41-73); Platelet Count 177 K/mm3 (150-400); RDW Coefficient Variation 11.8 % (11.7-14.2); RDW Standard Deviation 40.7 fL (35.1-46.3); Red Blood Cell Count 4.26 M/mm3 (4.30-5.90); White Blood Cell Count 9.84 K/mm3 (4.00-11.30)
[2025-01-27] MEDS ORDERED: Ketorolac Tromethamine 15mg Vial IV ONE (22:35)
[2025-01-27 22:55] LABS: Albumin, Blood 3.3 g/dL (3.4-5.0); Albumin/Globulin Ratio 0.9 (0.8-1.8); Bilirubin, Total 0.3 mg/dL (0.1-1.0); Bun/Creatinine Ratio 26.2 (12.0-20.0); Calcium, Blood 8.5 mg/dL (8.5-10.1); Creatinine, Blood 0.88 mg/dL (0.60-1.20); Globulin, Blood 3.7 g/dL (2.2-4.0); Potassium, Blood 3.7 mmol/L (3.5-5.5)
[2025-01-28] MEDS ORDERED: Vibramycin100 MG PO (01:02)
[2025-01-28] MEDS ORDERED: Doxycycline Hyclate 100 MG TAB PO ONE (01:05)
[2025-01-28 01:15] VITALS: BP 133/76
== END 2025-01-28 01:30 | disposition home or self-care (01) ==
LOC: ER 22:05
PROVIDERS: Emergency Medicine
DX: R07.9 Chest pain, unspecified (principal); L03.032 Cellulitis of left toe; I10 Essential (primary) hypertension; K21.9 Gastro-esophageal reflux disease without esophagitis; E11.40 Type 2 diabetes mellitus with diabetic neuropathy, unspecified; E78.5 Hyperlipidemia, unspecified; Z88.0 Allergy status to penicillin; Z88.1 Allergy status to other antibiotic agents; Z91.012 Allergy to eggs; Z88.5 Allergy status to narcotic agent; Z87.891 Personal history of nicotine dependence
CPT/HCPCS: 71045; 80053; 83880; 84484; 85025; 93005; 93010; 96374; 99285-25; A9270; J1885

== ENCOUNTER 2025-01-30 17:05 | Inpatient (IN) | payer OTHER ==
[~2025-01-30] VITALS: Ht 177.8 cm; Wt 93.8 kg
[~2025-01-30 17:05] MED LIST changes: +Vibramycin100 MG PO
[2025-01-30] MEDS ORDERED: Cefepime HCl 1,000 MG in NS 100 ML IV ONE ×2 (17:30→20:45)
[2025-01-30 17:49] LABS: BASOPHILS ABSOLUTE AUTO 0.06 K/mm3 (0.00-0.23); BASOPHILS PERCENT AUTO 1 % (0-2); EOSINOPHILS PERCENT AUTO 1 % (0-6); Hematocrit 38.9 % (37.0-53.0); Hemoglobin 13.5 g/dL (13.5-17.5); IMMATURE GRAN ABSOLUTE AUTO 0.05 K/mm3 (0.00-0.10); IMMATURE GRAN PERCENT AUTO 0 % (0-1); LYMPHOCYTES ABSOLUTE AUTO 0.99 K/mm3 (0.84-5.20); LYMPHOCYTES PERCENT AUTO 8 % (21-46); MONOCYTES ABSOLUTE AUTO 0.51 K/mm3 (0.16-1.47); MONOCYTES PERCENT AUTO 4 % (4-13); Mean Corpuscular HGB 32.8 pg (26.0-34.0); Mean Corpuscular HGB Conc 34.7 g/dL (31.5-36.5); Mean Corpuscular Volume 95 fL (80-100); NEUTROPHILS ABSOLUTE AUTO 10.37 K/mm3 (1.96-9.15); NEUTROPHILS PERCENT AUTO 86 % (41-73); Platelet Count 207 K/mm3 (150-400); RDW Coefficient Variation 11.9 % (11.7-14.2); RDW Standard Deviation 41.8 fL (35.1-46.3); Red Blood Cell Count 4.11 M/mm3 (4.30-5.90); White Blood Cell Count 12.08 K/mm3 (4.00-11.30)
[2025-01-30 18:35] LABS: Albumin, Blood 3.1 g/dL (3.4-5.0); Albumin/Globulin Ratio 0.8 (0.8-1.8); Bilirubin, Total 0.5 mg/dL (0.1-1.0); Bun/Creatinine Ratio 18.3 (12.0-20.0); Creatinine, Blood 0.71 mg/dL (0.60-1.20); Potassium, Blood 4.1 mmol/L (3.5-5.5); Total Protein, Blood 7.1 g/dL (6.4-8.2)
[2025-01-30] MEDS ORDERED: Vancomycin HCL 1,750 MG in NS 500 ML IV ONE (20:25)
[2025-01-30] MEDS ORDERED: Ondansetron HCl 2 MG / ML 2ML Vial IV ONE (20:30)
[2025-01-30] MEDS ORDERED: Morphine Sulfate 4 MG/1 ML Injection IV ONE (20:30)
[2025-01-30] MEDS ORDERED: FentaNYL Citrate 50 MCG/ML 2 ML Injection IV ONE (21:15)
[2025-01-30] MEDS ORDERED: Ondansetron HCl 2 MG / ML 2ML Vial IV PRN (22:10)
[2025-01-30] MEDS ORDERED: Naloxone HCl 0.4MG / ML 1ML Vial IV PRN (22:15)
[2025-01-30] MEDS ORDERED: Acetaminophen 325 MG TABLET PO PRN (22:15)
[2025-01-30] MEDS ORDERED: Morphine Sulfate 4 MG/1 ML Injection IV PRN (22:15)
[2025-01-30] MEDS ORDERED: OxyCODONE HCL 5 MG TAB PO PRN (22:55)
[2025-01-30] MEDS ORDERED: HYDROmorphone HCl/Pf 1MG SYR IV PRN (23:00)
[2025-01-30] MEDS ORDERED: HYDROmorphone HCl/Pf 1MG SYR IV ONE (23:00)
[2025-01-31] MEDS ORDERED: Insulin Regular 100 UNIT/ML 10ML Vial SC SCH
[2025-01-31 03:55] VITALS: BP 132/83
[2025-01-31 05:00] LABS: BASOPHILS ABSOLUTE AUTO 0.06 K/mm3 (0.00-0.23); BASOPHILS PERCENT AUTO 1 % (0-2); EOSINOPHILS ABSOLUTE AUTO 0.16 K/mm3 (0.00-0.68); EOSINOPHILS PERCENT AUTO 2 % (0-6); Hematocrit 37.5 % (37.0-53.0); Hemoglobin 12.9 g/dL (13.5-17.5); IMMATURE GRAN ABSOLUTE AUTO 0.04 K/mm3 (0.00-0.10); IMMATURE GRAN PERCENT AUTO 0 % (0-1); LYMPHOCYTES ABSOLUTE AUTO 1.84 K/mm3 (0.84-5.20); LYMPHOCYTES PERCENT AUTO 18 % (21-46); MONOCYTES ABSOLUTE AUTO 0.61 K/mm3 (0.16-1.47); MONOCYTES PERCENT AUTO 6 % (4-13); Mean Corpuscular HGB 32.7 pg (26.0-34.0); Mean Corpuscular HGB Conc 34.4 g/dL (31.5-36.5); Mean Corpuscular Volume 95 fL (80-100); Mean Platelet Volume 8.9 fL (9.1-12.4); NEUTROPHILS ABSOLUTE AUTO 7.68 K/mm3 (1.96-9.15); NEUTROPHILS PERCENT AUTO 74 % (41-73); Platelet Count 199 K/mm3 (150-400); RDW Coefficient Variation 11.8 % (11.7-14.2); RDW Standard Deviation 41.7 fL (35.1-46.3); Red Blood Cell Count 3.94 M/mm3 (4.30-5.90); White Blood Cell Count 10.39 K/mm3 (4.00-11.30)
[2025-01-31 05:22] LABS: Albumin, Blood 2.9 g/dL (3.4-5.0); Albumin/Globulin Ratio 0.8 (0.8-1.8); Bilirubin, Total 0.7 mg/dL (0.1-1.0); Bun/Creatinine Ratio 16.8 (12.0-20.0); Calcium, Blood 8.4 mg/dL (8.5-10.1); Creatinine, Blood 0.71 mg/dL (0.60-1.20); Globulin, Blood 3.7 g/dL (2.2-4.0); Total Protein, Blood 6.6 g/dL (6.4-8.2)
[2025-01-31] MEDS ORDERED: CefTRIAXone Sodium 1,000 MG in NS 100 ML IV SCH (06:00)
--- NOTE | 2025-01-31 06:18 | NUR ---
PATIENT SUMMURY: A/O X4. BP STABLE MAP >65. SATURATION >90 ON RA. NO TELE/ RADIAL PULSE 84.NPO STATUS MAINTAINED FOR POSSIBLE PROCEDURE. BG 140 THIS AM/NO COVERAGE NEEDED. PODIATRY CONSULT CALLED IN. MEDICATED FOR LEFT FOOT WOUND PAIN PER EMR. WOUND PICTURES TAKEN. IV ANTIBIOTIC ADMINISTERED PER EMR. ASSISTED TO BEDSIDE COMMODE. CALLS APPROPRIATELY. CALL BED IS WITHIN REACH AND BED IS AT THE LOWEST POSITION.
[2025-01-31 08:08] VITALS: BP 160/82
[2025-01-31] MEDS ORDERED: Docusate Sodium 100 MG Cap PO SCH (09:00)
[2025-01-31] MEDS ORDERED: Lactobacil 2-S.Thermo-Bifido 1 1 Cap PO SCH (09:00)
[2025-01-31] MEDS ORDERED: Polyethylene Glycol 3350 17 gm PO PRN (09:10)
[2025-01-31] MEDS ORDERED: Vancomycin HCL 1,500 MG in NS 250 ML IV SCH (10:00)
[2025-01-31] MEDS ORDERED: Bisacodyl 5 MG TabEC PO PRN (12:35)
[2025-01-31] MEDS ORDERED: OxyCODONE HCL 5 MG TAB PO PRN (12:45)
[2025-01-31 15:57] VITALS: BP 115/74
--- NOTE | 2025-01-31 16:50 | NUR ---
Shift Summary Pt A/O X4, SBA to the bedside commode. Dr Vega at bedside this morning, new consult for IR called into office. Pt NPO throughout shift, ok to feed now. Medicated pt for pain in left leg, administered per EMR. Administered IV antibiotic per EMR for infection. Pt leg swollen, warm to touch, with +1 edema noted. Left second toe is necrotic and swollen. Pt is on room air, with o2 supplementation as needed. Pt lying in bed, call light in reach. VSS.
--- NOTE | 2025-01-31 17:22 | NUR ---
"Spiritual Care Visit | Pt. Request Pt. is awake in bed and welcmoed my visit. Pt. is pleasant and verbalized some details regarding his diagnosis. Pt. was quick to share that he was a man of tereza. Considered matters of God working miraculously in the Pts. life. Listen with interest and empathy. Pt displays evidence of being lonely, but hopeful. Prayed with the Pt. Pt. verbalized gratitude for the spiritual care visit and welcomed this paper gluing operator to retur."
[2025-01-31 17:46] VITALS: BP 126/81
--- NOTE | 2025-01-31 18:45 | NUR ---
I have reviewed the nursing students documenation and am in agreement.
[2025-01-31 19:36] VITALS: BP 138/81
[2025-01-31] MEDS ORDERED: Docusate Sodium/Senna 1 Tab PO SCH (21:00)
--- NOTE | 2025-01-31 21:26 | NUR ---
UPDATE MD LEWIS TO BEDSIDE AFTER SHIFT CHANGE. MD WITH VERBAL ORDER FOR CT ABDOMEN WITH RUNNOFF AND CONTRAST. THIS RN VIEWED KIDNEY FUNCTION LAB RESULTS WITH MD AT BEDSIDE. CT ORDER PLACED. MD VERBALIZED THAT PT WILL BE NPO AT MIDNIGHT FOR PROCEDURE 02/01. MD VERBALIZED THAT HE WILL READ CT RESULTS HIMSELF. PT TAKEN TO CT VIA WHEELCHAIR. VITALS STABLE AT THIS TIME. MEDICAL STATUS WITH NO TELE. PT MEDICATED FOR PAIN AFTER SHIFT CHANGE. WOUND CARE DONE PER ORDER AFTER MD LEWIS LEFT BEDSIDE. BED IN LOWEST POSITION AND CALL LIGHT WITHIN REACH.
[2025-02-01] VITALS (13 sets, daily range): BP systolic 103–143; BP diastolic 62–82
[2025-02-01 04:16] LABS: Hematocrit 37.5 % (37.0-53.0); Hemoglobin 12.7 g/dL (13.5-17.5); Mean Corpuscular HGB 32.4 pg (26.0-34.0); Mean Corpuscular HGB Conc 33.9 g/dL (31.5-36.5); Mean Corpuscular Volume 96 fL (80-100); Mean Platelet Volume 9.2 fL (9.1-12.4); Platelet Count 205 K/mm3 (150-400); RDW Coefficient Variation 11.9 % (11.7-14.2); RDW Standard Deviation 41.4 fL (35.1-46.3); Red Blood Cell Count 3.92 M/mm3 (4.30-5.90); White Blood Cell Count 8.89 K/mm3 (4.00-11.30)
[2025-02-01 04:43] LABS: Albumin, Blood 2.8 g/dL (3.4-5.0); Anion Gap 10 mmol/L (3-11); Blood Urea Nitrogen 15 mg/dL (8-24); Bun/Creatinine Ratio 24.8 (12.0-20.0); CO2, Blood 27 mmol/L (21-32); Calcium, Blood 8.7 mg/dL (8.5-10.1); Chloride, Blood 101 mmol/L (98-108); Creatinine, Blood 0.61 mg/dL (0.60-1.20); Glomerular Filtration Rate 109 (60-); Glucose, Blood 119 mg/dL (70-99); Magnesium, Blood 2.2 mg/dL (1.6-2.4); Phosphorus, Blood 3.6 mg/dL (2.5-4.9); Sodium, Blood 134 mmol/L (136-145)
--- NOTE | 2025-02-01 05:59 | NUR ---
A/O X4. RA SATURATIONS >90. RADIAL PUSE 80. BP STABLE WITH MAP>65. WOUND CARE DONE PER ORDER/NO DRAINAGE NOTED. CTA ABDOMEN WITH RUN OFF DONE ORDERED. NPO MAINTAINED FOR IR. C/O LLE WOUND PAIN 06/02. MEDICATED FOR PAIN PER EMR WITH PAIN RELIEF. TOLERATED IV ANTIBIOTICS WELL. CALLS APPROPRIATELY. CALL GRAY IS WITHIN REACH AND BED AT THE LOWEST POSITION.
[2025-02-01] MEDS ORDERED: Insulin Human Lispro 100 Units/ML 3ML Syringe SC SCH (07:30)
[2025-02-01] MEDS ORDERED: NS 250 ML IV ONE (07:39)
[2025-02-01] MEDS ORDERED: NS 100 ML IV ONE (07:39)
[2025-02-01] MEDS ORDERED: NS 1,000 ML IV ONE ×2 (07:40→08:11)
[2025-02-01] MEDS ORDERED: Heparin Sodium 1000 Units/ML 10ML MDV ONE (07:40)
[2025-02-01] MEDS ORDERED: FentaNYL Citrate 50 MCG/ML 2 ML Injection ONE (08:10)
[2025-02-01] MEDS ORDERED: Midazolam HCl 1MG / ML 2ML Vial ONE (08:10)
--- NOTE | 2025-02-01 10:25 | NUR ---
AM SHIFT NOTE: PT UNDERWENT ANGIOGRAM TODAY FOR DIAGNOSTIC PROCEDURE OF VASCULATURE. PT BACK IN ROOM LYING IN BED, FEMORAL DRESSING APPEARS C/D/I. PT COMPLAINS OF PAIN FOLLOWING PROCEDURE, ADMINISTERED PAIN MEDICATION PER EMAR. PT LEFT LEG REDNESS HAS RECEDED FROM MARKED LINE, AND EDEMA HAS IMPROVED SINCE PREVIOUS DAY. LEFT FOOT DRESSING C/D/I. VSS, LUNGS CLEAR ON AUSCULTATION, AND HEART RATE OF 84. PT PUT ON 2L O2 FOLLOWING PAIN MEDICATION ADMINISTRATION, SATS AT 96. PT ATE LUNCH REVERSE [place], CALL LIGHT WITHIN REACH, NO NEEDS AT THIS TIME.
[2025-02-01 10:36] LABS: Vancomycin, Trough 10.7 ug/mL (5.0-10.0)
[2025-02-01] MEDS ORDERED: Gabapentin 400 MG Cap PO SCH (14:00)
--- NOTE | 2025-02-01 18:01 | NUR ---
Shift Summary Patient recovered right groin site, small amount of blood noted to site, no changes after recovery, soft, nontender, no bruising or hematoma noted. Other vss. Dr Ramirez at bedside this afternoon, redressed left foot this evening. Plans for NPO after MN for amputation in am. Pt reporting pain t/o shift, medicated per emar. Call light within reach.
[2025-02-01] MEDS ORDERED: Tamsulosin HCl 0.4 MG Cap PO SCH (21:00)
[2025-02-02] VITALS (11 sets, daily range): BP systolic 108–151; BP diastolic 68–88
[2025-02-02] MEDS ORDERED: Omeprazole 20 MG CapCR PO SCH (06:00)
[2025-02-02] MEDS ORDERED: Bupivacaine 0.5% HCl 5 MG/ML 30MLVIAL ONE (08:40)
[2025-02-02] MEDS ORDERED: Lidocaine HCl 1% 30 ML SDV ONE (08:40)
[2025-02-02] MEDS ORDERED: Loratadine 10 MG Tab PO SCH (09:00)
[2025-02-02] MEDS ORDERED: HYDROmorphone HCl/Pf 1MG SYR IV PRN (09:35)
[2025-02-02] MEDS ORDERED: FentaNYL Citrate 50 MCG/ML 2 ML Injection IV PRN (09:35)
[2025-02-02] MEDS ORDERED: Ondansetron HCl 2 MG / ML 2ML Vial IV PRN (09:35)
[2025-02-02] MEDS ORDERED: Phenylephrine HCl 100 MCG/ML-NS 10MLSYR (1MG/10ML) ONE (09:42)
[2025-02-02] MEDS ORDERED: HYDROmorphone HCl/Pf 1MG SYR ONE (09:42)
[2025-02-02] MEDS ORDERED: propofoL 20 ML IV ONE (09:42)
[2025-02-02] MEDS ORDERED: Ondansetron HCl 2 MG / ML 2ML Vial ONE (09:51)
[2025-02-02] MEDS ORDERED: FentaNYL Citrate 50 MCG/ML 2 ML Injection ONE (10:29)
[2025-02-02] MEDS ORDERED: NS 250 ML IV PRN (11:25)
[2025-02-02] MEDS ORDERED: HYDROmorphone HCl 2 MG Tab PO PRN (16:40)
--- NOTE | 2025-02-02 17:50 | NUR ---
PT WENT DOWN FOR LEFT SECOND TOE AMPUTATION W/ WOUND VAC. PT CAME BACK TO THE UNIT AND WAS BLEEDING THROUGH THE DRESSING. THIS NURSE CALLED SURGEON AND I WAS ASKED TO UNRAVEL DRESSING AND REINFORCE SEAL AND RE RAP. PT HAS HAD C/O PAIN SEE EMAR FOR DETAILS AND FREQUENCY. PT IS AOX4, VSS AND ON RA. PT HAS NO QUESTIONS OR CONERNS AT THIS TIME.
[2025-02-03 02:33] VITALS: BP 128/72
[2025-02-03 07:09] VITALS: BP 129/63
[2025-02-03 11:54] VITALS: BP 121/81
[2025-02-03 15:22] VITALS: BP 119/69
--- NOTE | 2025-02-03 16:35 | NUR ---
PT HAS C/O PAIN EVERY 4-5 HRS AND TREAT APPROPRIATLY. SEE EMAR FOR TIMES AND FREQUENCY.
[2025-02-03 20:17] VITALS: BP 139/75
[2025-02-04 05:07] VITALS: BP 121/85
[2025-02-04 07:06] VITALS: BP 128/81
[2025-02-04] MEDS ORDERED: Doxycycline Hyclate 100 MG TAB PO SCH (09:00)
[2025-02-04 11:34] VITALS: BP 123/77
[2025-02-04 15:59] VITALS: BP 132/84
--- NOTE | 2025-02-04 18:17 | NUR ---
SHIFT SUMMARY PT CONT LEVEL OF CARE. PT NOTED TO BE A&OX4 AND IND TO BSC VIA PIVOT TRANSFER. PT NOTED TO CONT TO BE NON WT BEARING TO L FOOT. PT NOTED TO CONT TO VOICE C/O PAIN TO L FOOT AND HAS BEEN MEDICATED PER EMAR THIS SHIFT. SURGERY NOTED TO SEE PT THIS SHIFT AND STATED THAT STARTING TOMORROW PT IS TO HAVE WOUND VAC CHANGED AND DSG TO FOOT EVERY 3DAYS. ALSO RECEIVED ORDERS FOR PT EVAL AND TREAT.
[2025-02-04 19:12] VITALS: BP 129/74
[2025-02-04] MEDS ORDERED: Nitroglycerin 0.4 MG SUBL SL PRN (20:10)
[2025-02-04] MEDS ORDERED: FentaNYL Citrate 50 MCG/ML 2 ML Injection IV PRN (20:35)
--- NOTE | 2025-02-04 22:03 | NUR ---
PT COMPLAINT OF CHEST PAIN AT BEGINNING OF SHIFT. VS OBTAIN AND WNL. PT STATED CHEST PAIN FELT LIKE 'STABBING PAIN WITH PRESSURE RADIATING TO RIGHT SHOULDER AND DOWN BACK THAT FEELS LIKE IT DID BEFORE I HAD TO GET STENTS PLACED WITH MY CABG.' MD CALLED. NEW ORDERS FOR NITRO PER PT'S HOME MED. MED GIVEN PER MD ORDER WITH NO RELIEF. EKG OBTAINED, NO ACUTE CHANGES. MD CALLED ABOUT NO PAIN RELIEF FOR CHEST PAIN, NEW ORDERS RECIEVED FOR TROPONIN LABS AND FENTANYL. LABS OBTAINED AND WNL, FENTANYL GIVEN PER MD ORDER. RELIEF WAS OBTAINED. WILL CONTINUE TO MONITOR
[2025-02-05 01:52] VITALS: BP 129/74
[2025-02-05 08:06] VITALS: BP 126/75
[2025-02-05] MEDS ORDERED: Enoxaparin 40 MG/0.4 ML SYR SC SCH (09:00)
[2025-02-05] MEDS ORDERED: Lisinopril 5 MG Tab PO SCH (09:00)
[2025-02-05] MEDS ORDERED: Aspirin 81 MG Chew PO SCH (09:00)
[2025-02-05 15:27] VITALS: BP 151/81
--- NOTE | 2025-02-05 17:18 | NUR ---
WOUIND VAC DRESSING CHNAGED TODAY AND GOT MEASURMENTS FOR HOME WOUND VAC. SEE CHART FOR DETAILS. PT HAD PAIN THROUGH DAY SEE EMAR FOR DETAILS ON MEDS GIVEN.
[2025-02-05 19:55] VITALS: BP 103/70
--- NOTE | 2025-02-06 04:36 | NUR ---
SHIFT SUMMARY: PT AOX4 SBA WITH WOUND VAC ON. WOUND VAC DRESSING CDI. NOT MUCH IF ANY OUTPUT NOTED. PT COMPLAINS OF EXTREME PAIN, MEDICATED PER EMR. TOLERATING MEDICATIONS WELL, AND HAVING GOOD INTAKE AND OUTPUT. NO ACUTE EVENTS OVERNIGHT. PT IN BED SLEEPING, BED IN LOWEST POSITION, CALL LIGHT IN REACH. CONTINUING CARE.
[2025-02-06 04:51] VITALS: BP 104/71
[2025-02-06 05:26] LABS: Hematocrit 42.3 % (37.0-53.0); Hemoglobin 14.2 g/dL (13.5-17.5); Mean Corpuscular HGB 31.8 pg (26.0-34.0); Mean Corpuscular HGB Conc 33.6 g/dL (31.5-36.5); Mean Corpuscular Volume 95 fL (80-100); Mean Platelet Volume 8.4 fL (9.1-12.4); Platelet Count 258 K/mm3 (150-400); RDW Coefficient Variation 11.6 % (11.7-14.2); RDW Standard Deviation 40.5 fL (35.1-46.3); Red Blood Cell Count 4.46 M/mm3 (4.30-5.90); White Blood Cell Count 7.64 K/mm3 (4.00-11.30)
[2025-02-06 05:51] LABS: Bun/Creatinine Ratio 34.6 (12.0-20.0); Creatinine, Blood 0.81 mg/dL (0.60-1.20); Potassium, Blood 4.4 mmol/L (3.5-5.5)
[2025-02-06 05:57] LABS: BASOPHILS ABSOLUTE MAN 0.15 K/mm3 (0.00-0.23); BASOPHILS PERCENT MAN 2 % (0-2); EOSINOPHILS ABSOLUTE MAN 0.22 K/mm3 (0.00-0.68); EOSINOPHILS PERCENT MAN 3 % (0-6); LYMPHOCYTES ABSOLUTE MAN 1.83 K/mm3 (0.84-5.20); LYMPHOCYTES PERCENT MAN 24 % (21-46); MONOCYTES ABSOLUTE MAN 0.38 K/mm3 (0.16-1.47); MONOCYTES PERCENT MAN 5 % (4-13); NEUTROPHILS ABSOLUTE MAN 5.04 K/mm3 (1.96-9.15); SEG NEUTROPHILS PERCENT MAN 66 % (41-73); TOTAL CELLS COUNTED 100
[2025-02-06 07:37] VITALS: BP 100/65
[2025-02-06] MEDS ORDERED: DOXY100 PO (11:39)
[2025-02-06] MEDS ORDERED: DOCUZEN 8.6-501 EACH PO (11:39)
[2025-02-06] MEDS ORDERED: HYDMOR2 PO (11:41)
[2025-02-06] MEDS ORDERED: Lisinopril2.5 MG PO (11:41)
[2025-02-06] MEDS ORDERED: VISBIOME 112.51 EACH PO (11:42)
[2025-02-06] MEDS ORDERED: CEPH500 PO (11:43)
[2025-02-06] MEDS ORDERED: IBUP400 PO (11:44)
[2025-02-06] MEDS ORDERED: METF500C PO (11:45)
[2025-02-06] MEDS ORDERED: Acetaminophen650 M1 PO (11:48)
--- NOTE | 2025-02-06 13:43 | NUR ---
WOUND VAC BEING CHANGED NOW, PATIENT TO GO HOME WITHH PORTABLE MACHINE
--- NOTE | 2025-02-06 16:49 | NUR ---
PATIENT DISCHARGED HOME, PATIENT ALERT AND ORIENTED, POOR SHORT TERM MEMORY
== END 2025-02-06 14:58 | disposition home health service (06) | DRG 854 ==
LOC: ER 17:05 → ERHOLD 22:09 → PCU 22:09 → MEDS 22:09 → PCU 01-31 03:47 → MEDS 02-01 20:32
PROVIDERS: Emergency Medicine; Internal Medicine; Podiatrist Foot & Ankle Surgery; ADMIT Student in an Organized Health Care Education/Training Program
PROC: 3E03329 Introduction of Other Anti-infective into Peripheral Vein, Percutaneous Approach (ICD-10-PCS; 2025-01-30)
PROC: B41G1ZZ Fluoroscopy of Left Lower Extremity Arteries using Low Osmolar Contrast (ICD-10-PCS; 2025-02-01)
PROC: 0Y6S0Z0 Detachment at Left 2nd Toe, Complete, Open Approach (ICD-10-PCS; principal; 2025-02-02 08:15)
DX: A41.9 Sepsis, unspecified organism (principal); E11.52 Type 2 diabetes mellitus with diabetic peripheral angiopathy with gangrene; G71.29 Other congenital myopathy; L03.116 Cellulitis of left lower limb; Z59.00 Homelessness unspecified; N40.0 Benign prostatic hyperplasia without lower urinary tract symptoms; E11.628 Type 2 diabetes mellitus with other skin complications; K59.00 Constipation, unspecified; E11.40 Type 2 diabetes mellitus with diabetic neuropathy, unspecified; E03.9 Hypothyroidism, unspecified; K21.9 Gastro-esophageal reflux disease without esophagitis; I10 Essential (primary) hypertension; E78.5 Hyperlipidemia, unspecified; I25.118 Atherosclerotic heart disease of native coronary artery with other forms of angina pectoris; S98.132A Complete traumatic amputation of one left lesser toe, initial encounter; R07.9 Chest pain, unspecified; Z88.5 Allergy status to narcotic agent; Z88.0 Allergy status to penicillin; Z88.8 Allergy status to other drugs, medicaments and biological substances; Z88.1 Allergy status to other antibiotic agents; Z79.891 Long term (current) use of opiate analgesic; Z79.899 Other long term (current) drug therapy; Z79.82 Long term (current) use of aspirin; Z79.2 Long term (current) use of antibiotics; I25.2 Old myocardial infarction; Z85.048 Personal history of other malignant neoplasm of rectum, rectosigmoid junction, and anus; Z92.21 Personal history of antineoplastic chemotherapy; Z98.890 Other specified postprocedural states; Z87.19 Personal history of other diseases of the digestive system; Z95.828 Presence of other vascular implants and grafts; Z90.89 Acquired absence of other organs; Z90.49 Acquired absence of other specified parts of digestive tract; Z95.5 Presence of coronary angioplasty implant and graft; Z98.1 Arthrodesis status; Z95.1 Presence of aortocoronary bypass graft; Z87.891 Personal history of nicotine dependence; Z91.012 Allergy to eggs; X58.XXXA Exposure to other specified factors, initial encounter
CPT/HCPCS: 36140; 36415; 71045; 73620; 73701; 75625; 75635; 75716; 75774; 76937; 80048; 80053; 80069; 80202; 82947; 83036; 83735; 83880; 84484; 85025; 85027; 88305; 88311; 93005; 93010; 94762; 96365; 96367; 96374; 96375; 97116; 97162; 99152; 99153; 99285-25; A9270; C1760; C1769; C1887; C1894; J0692; J0696; J1171; J1644; J1650; J1885; J2250; J2270; J2371; J2405; J2704; J3010; J3370; J7030; J7040; J7050; Q9967

== ENCOUNTER 2025-02-19 23:02 | Emergency (ER) | payer OTHER ==
[~2025-02-19] VITALS: Ht 177.8 cm; Wt 106.6 kg
[~2025-02-19 23:02] MED LIST changes: +Acetaminophen650 M1 PO; +DOXY100 PO; +HYDMOR2 PO; +IBUP400 PO; +Lisinopril2.5 MG PO; +VISBIOME 112.51 EACH PO
[2025-02-20] MEDS ORDERED: FentaNYL Citrate 50 MCG/ML 2 ML Injection IV PRN (01:30)
[2025-02-20 01:51] LABS: BASOPHILS ABSOLUTE AUTO 0.09 K/mm3 (0.00-0.23); BASOPHILS PERCENT AUTO 1 % (0-2); EOSINOPHILS ABSOLUTE AUTO 0.24 K/mm3 (0.00-0.68); EOSINOPHILS PERCENT AUTO 2 % (0-6); Hematocrit 39.6 % (37.0-53.0); IMMATURE GRAN ABSOLUTE AUTO 0.05 K/mm3 (0.00-0.10); IMMATURE GRAN PERCENT AUTO 1 % (0-1); LYMPHOCYTES ABSOLUTE AUTO 2.11 K/mm3 (0.84-5.20); LYMPHOCYTES PERCENT AUTO 21 % (21-46); MONOCYTES ABSOLUTE AUTO 0.62 K/mm3 (0.16-1.47); MONOCYTES PERCENT AUTO 6 % (4-13); Mean Corpuscular HGB 32.5 pg (26.0-34.0); Mean Corpuscular HGB Conc 35.4 g/dL (31.5-36.5); Mean Corpuscular Volume 92 fL (80-100); Mean Platelet Volume 8.5 fL (9.1-12.4); NEUTROPHILS PERCENT AUTO 69 % (41-73); Platelet Count 205 K/mm3 (150-400); RDW Coefficient Variation 12.3 % (11.7-14.2); RDW Standard Deviation 41.5 fL (35.1-46.3); Red Blood Cell Count 4.31 M/mm3 (4.30-5.90); White Blood Cell Count 10.21 K/mm3 (4.00-11.30)
[2025-02-20 01:58] LABS: Albumin, Blood 3.2 g/dL (3.4-5.0); Albumin/Globulin Ratio 0.8 (0.8-1.8); Bilirubin, Total 0.5 mg/dL (0.1-1.0); Bun/Creatinine Ratio 21.8 (12.0-20.0); Calcium, Blood 8.5 mg/dL (8.5-10.1); Creatinine, Blood 0.73 mg/dL (0.60-1.20); Globulin, Blood 4.1 g/dL (2.2-4.0); Potassium, Blood 3.7 mmol/L (3.5-5.5); Total Protein, Blood 7.3 g/dL (6.4-8.2)
[2025-02-20 04:00] VITALS: BP 118/74
== END 2025-02-20 05:18 | disposition home or self-care (01) ==
LOC: ER 23:02
PROVIDERS: Emergency Medicine
DX: S93.402A Sprain of unspecified ligament of left ankle, initial encounter (principal); S13.4XXA Sprain of ligaments of cervical spine, initial encounter; E11.40 Type 2 diabetes mellitus with diabetic neuropathy, unspecified; I10 Essential (primary) hypertension; K21.9 Gastro-esophageal reflux disease without esophagitis; E78.5 Hyperlipidemia, unspecified; Z88.0 Allergy status to penicillin; Z88.5 Allergy status to narcotic agent; Z88.8 Allergy status to other drugs, medicaments and biological substances; Z91.012 Allergy to eggs; Z79.899 Other long term (current) drug therapy; Z79.82 Long term (current) use of aspirin; Z79.2 Long term (current) use of antibiotics; W19.XXXA Unspecified fall, initial encounter
CPT/HCPCS: 70450; 72125; 73610; 80053; 83605; 85025; 93005; 93010; 96374; 96376; 99284-25; J3010; L0160

== ENCOUNTER 2025-03-07 20:35 | Inpatient (IN) | payer OTHER ==
[~2025-03-07] VITALS: Ht 177.8 cm; Wt 90.7 kg
[2025-03-07 22:42] LABS: BASOPHILS ABSOLUTE AUTO 0.08 K/mm3 (0.00-0.23); BASOPHILS PERCENT AUTO 1 % (0-2); EOSINOPHILS ABSOLUTE AUTO 0.24 K/mm3 (0.00-0.68); EOSINOPHILS PERCENT AUTO 2 % (0-6); Hematocrit 40.5 % (37.0-53.0); Hemoglobin 13.9 g/dL (13.5-17.5); IMMATURE GRAN ABSOLUTE AUTO 0.04 K/mm3 (0.00-0.10); IMMATURE GRAN PERCENT AUTO 0 % (0-1); LYMPHOCYTES ABSOLUTE AUTO 1.91 K/mm3 (0.84-5.20); LYMPHOCYTES PERCENT AUTO 17 % (21-46); MONOCYTES ABSOLUTE AUTO 0.82 K/mm3 (0.16-1.47); MONOCYTES PERCENT AUTO 7 % (4-13); Mean Corpuscular HGB 31.9 pg (26.0-34.0); Mean Corpuscular HGB Conc 34.3 g/dL (31.5-36.5); Mean Corpuscular Volume 93 fL (80-100); NEUTROPHILS ABSOLUTE AUTO 8.15 K/mm3 (1.96-9.15); NEUTROPHILS PERCENT AUTO 73 % (41-73); Platelet Count 228 K/mm3 (150-400); RDW Coefficient Variation 12.2 % (11.7-14.2); RDW Standard Deviation 42.3 fL (35.1-46.3); Red Blood Cell Count 4.36 M/mm3 (4.30-5.90); White Blood Cell Count 11.24 K/mm3 (4.00-11.30)
[2025-03-07 22:53] LABS: Albumin, Blood 3.2 g/dL (3.4-5.0); Albumin/Globulin Ratio 0.7 (0.8-1.8); Bilirubin, Total 0.6 mg/dL (0.1-1.0); Bun/Creatinine Ratio 23.6 (12.0-20.0); Creatinine, Blood 0.76 mg/dL (0.60-1.20); Globulin, Blood 4.4 g/dL (2.2-4.0); Potassium, Blood 4.3 mmol/L (3.5-5.5); Total Protein, Blood 7.6 g/dL (6.4-8.2)
[2025-03-08] VITALS (18 sets, daily range): BP systolic 87–157; BP diastolic 59–91
[2025-03-08] MEDS ORDERED: NS 1,000 ML IV SCH ×2 (02:50→04:20)
[2025-03-08] MEDS ORDERED: Cefepime HCl 2,000 MG in NS 100 ML IV ONE (02:55)
[2025-03-08] MEDS ORDERED: HYDROmorphone HCl/Pf 1MG SYR IV ONE ×2 (03:30→07:00)
[2025-03-08] MEDS ORDERED: Ketorolac Tromethamine 30mg Vial IV ONE (03:30)
[2025-03-08] MEDS ORDERED: Vancomycin HCL 2,000 MG in NS 500 ML IV ONE (03:35)
[2025-03-08] MEDS ORDERED: Ondansetron HCl 2 MG / ML 2ML Vial IV ONE (03:40)
[2025-03-08 04:00] LABS: C-REACTIVE PROTEIN, EXT RANGE 9.18 mg/dL (0.000-0.300)
[2025-03-08] MEDS ORDERED: Ondansetron HCl 2 MG / ML 2ML Vial IV PRN ×2 (04:20→13:25)
[2025-03-08] MEDS ORDERED: Acetaminophen 325 MG TABLET PO PRN (04:20)
[2025-03-08] MEDS ORDERED: FentaNYL Citrate 50 MCG/ML 2 ML Injection IV PRN ×3 (04:50→13:30)
[2025-03-08 06:32] LABS: BASOPHILS ABSOLUTE AUTO 0.04 K/mm3 (0.00-0.23); BASOPHILS PERCENT AUTO 1 % (0-2); EOSINOPHILS PERCENT AUTO 4 % (0-6); Hematocrit 37.3 % (37.0-53.0); Hemoglobin 12.7 g/dL (13.5-17.5); IMMATURE GRAN ABSOLUTE AUTO 0.02 K/mm3 (0.00-0.10); IMMATURE GRAN PERCENT AUTO 0 % (0-1); LYMPHOCYTES ABSOLUTE AUTO 1.74 K/mm3 (0.84-5.20); LYMPHOCYTES PERCENT AUTO 21 % (21-46); MONOCYTES ABSOLUTE AUTO 0.57 K/mm3 (0.16-1.47); MONOCYTES PERCENT AUTO 7 % (4-13); Mean Corpuscular HGB 32.2 pg (26.0-34.0); Mean Corpuscular Volume 94 fL (80-100); Mean Platelet Volume 8.7 fL (9.1-12.4); NEUTROPHILS ABSOLUTE AUTO 5.63 K/mm3 (1.96-9.15); NEUTROPHILS PERCENT AUTO 68 % (41-73); Platelet Count 193 K/mm3 (150-400); RDW Coefficient Variation 12.3 % (11.7-14.2); RDW Standard Deviation 42.9 fL (35.1-46.3); Red Blood Cell Count 3.95 M/mm3 (4.30-5.90)
[2025-03-08] MEDS ORDERED: HYDROmorphone HCl/Pf 1MG SYR IV PRN (07:00)
[2025-03-08] MEDS ORDERED: Insulin Human Lispro 100 Units/ML 3ML Syringe SC SCH (07:30)
[2025-03-08 09:05] LABS: Albumin, Blood 2.9 g/dL (3.4-5.0); Albumin/Globulin Ratio 0.7 (0.8-1.8); Bilirubin, Total 0.8 mg/dL (0.1-1.0); Bun/Creatinine Ratio 26.4 (12.0-20.0); Calcium, Blood 8.5 mg/dL (8.5-10.1); Creatinine, Blood 0.68 mg/dL (0.60-1.20); Globulin, Blood 4.1 g/dL (2.2-4.0); Potassium, Blood 4.1 mmol/L (3.5-5.5)
[2025-03-08] MEDS ORDERED: Cefepime HCl 1,000 MG in NS 100 ML IV SCH (10:00)
[2025-03-08] MEDS ORDERED: OxyCODONE HCL 5 MG TAB PO PRN (12:00)
[2025-03-08] MEDS ORDERED: Lactated Ringer's 1,000 ML IV SCH ×2 (12:50→13:30)
--- NOTE | 2025-03-08 13:02 | NUR ---
PT TO OR AT THIS TIME
[2025-03-08] MEDS ORDERED: Atropine Sulfate 0.1 MG/ML 10ML SYR IV PRN (13:25)
[2025-03-08] MEDS ORDERED: Citric Acid/Sodium Citrate 30 ML BTL PO ONE (13:30)
[2025-03-08] MEDS ORDERED: Lidocaine HCl 1% 5 ML SYR INJ ONE (13:30)
[2025-03-08] MEDS ORDERED: HydrALAZINE HCl 20 MG / ML 1ML Vial IV PRN (13:30)
[2025-03-08] MEDS ORDERED: Famotidine 10 MG/ML 2ML Vial IV ONE (13:30)
[2025-03-08] MEDS ORDERED: propofoL 20 ML IV ONE (13:33)
[2025-03-08] MEDS ORDERED: Ondansetron HCl 2 MG / ML 2ML Vial ONE (13:42)
[2025-03-08] MEDS ORDERED: Dexamethasone Sod Phos 10 MG/ML 1ML VIAL ONE (13:42)
[2025-03-08] MEDS ORDERED: Gabapentin 400 MG Cap PO SCH (14:00)
[2025-03-08] MEDS ORDERED: Lidocaine HCL 1% 10 ML MDV ONE (14:01)
[2025-03-08] MEDS ORDERED: Bupivacaine 0.5% Inj 10 ML Vial ONE (14:01)
[2025-03-08] MEDS ORDERED: Midazolam HCl 1MG / ML 2ML Vial ONE (14:16)
--- NOTE | 2025-03-08 14:21 | NUR ---
PT TO UNIT VIA W/C. PT ABLE TO TRANSFER HIMSELF INDEPENDENTLY TO W/C. TELE BOX REMAINED IN PLACE WHEN ARRIVED TO DAY SURGERY. UPPER DENTURES REMOVED AND PLACED IN DENTURE CUP IN PT'S ROOM. PT ABLE TO USE URINAL INDEPENDENTLY. TELE BOX IN PLACE AND SENT TO OR WITH PT. Pre-Op teaching done. Pt verbalizes understanding. Patient confirms NPO status and agrees with scheduled surgery.
[2025-03-08] MEDS ORDERED: FentaNYL Citrate 50 MCG/ML 2 ML Injection ONE (14:30)
[2025-03-08] MEDS ORDERED: Vancomycin HCL 1,750 MG in NS 500 ML IV SCH (16:00)
--- NOTE | 2025-03-08 16:01 | NUR ---
POST OP: REPORT RECEIVED FROM ACADEMIC SUPPORT ASSISTANT. PT TO UNIT AT ABOUT 1540. PT IS A/O, VSS. REPORTS PAIN IS MANAGABLE AT THIS TIME. SURGICAL SITE WNL. PT GIVEN CALL LIGHT. TELE VERIFIED BY ALINA SMART. NSR 70'S.
--- NOTE | 2025-03-08 17:57 | NUR ---
ADMISSION SUMMARY RECEIVED REPORT BY MIRI DUMAS RN. PT ARRIVED TO UNIT APPROX 0745 VIA W/C FROM ED. PT NPO WITH THE POSSIBILITY OF GOING TO OR. VITAL SIGNS STABLE. PT REPORTS PAIN IN LEFT FOOT. CALL LIGHT WITHIN REACH OF PT.
--- NOTE | 2025-03-08 18:11 | NUR ---
SUMMARY: PT HAS DONE WELL POST OP; VSS, A/O. SURGICAL SITE WNL. DR. DUNBAR IN ROOM AT ABOUT 1730 FOR CONSULT. ANTIBIOTICS INFUSED AND MEDICATED FOR PAIN PRN. TELE STABLE, PT VOIDING. PT HAS NOT AMBULATED POST OP YET, USING CALL LIGHT AND MAKES NEEDS KNOWN
[2025-03-09 05:01] LABS: BASOPHILS ABSOLUTE AUTO 0.04 K/mm3 (0.00-0.23); BASOPHILS PERCENT AUTO 1 % (0-2); EOSINOPHILS ABSOLUTE AUTO 0.02 K/mm3 (0.00-0.68); EOSINOPHILS PERCENT AUTO 0 % (0-6); Hematocrit 37.6 % (37.0-53.0); Hemoglobin 12.7 g/dL (13.5-17.5); IMMATURE GRAN ABSOLUTE AUTO 0.03 K/mm3 (0.00-0.10); IMMATURE GRAN PERCENT AUTO 0 % (0-1); LYMPHOCYTES ABSOLUTE AUTO 0.77 K/mm3 (0.84-5.20); LYMPHOCYTES PERCENT AUTO 9 % (21-46); MONOCYTES ABSOLUTE AUTO 0.57 K/mm3 (0.16-1.47); MONOCYTES PERCENT AUTO 7 % (4-13); Mean Corpuscular HGB 31.6 pg (26.0-34.0); Mean Corpuscular HGB Conc 33.8 g/dL (31.5-36.5); Mean Corpuscular Volume 94 fL (80-100); Mean Platelet Volume 8.6 fL (9.1-12.4); NEUTROPHILS ABSOLUTE AUTO 7.15 K/mm3 (1.96-9.15); NEUTROPHILS PERCENT AUTO 83 % (41-73); Platelet Count 205 K/mm3 (150-400); Red Blood Cell Count 4.02 M/mm3 (4.30-5.90); White Blood Cell Count 8.58 K/mm3 (4.00-11.30)
[2025-03-09 05:26] LABS: Albumin, Blood 2.8 g/dL (3.4-5.0); Albumin/Globulin Ratio 0.6 (0.8-1.8); Bilirubin, Total 0.4 mg/dL (0.1-1.0); Calcium, Blood 8.7 mg/dL (8.5-10.1); Creatinine, Blood 0.74 mg/dL (0.60-1.20); Globulin, Blood 4.4 g/dL (2.2-4.0); Potassium, Blood 4.3 mmol/L (3.5-5.5); Total Protein, Blood 7.2 g/dL (6.4-8.2)
[2025-03-09 05:35] VITALS: BP 129/77
[2025-03-09] MEDS ORDERED: HYDROmorphone HCl/Pf 1MG SYR IV PRN (06:40)
[2025-03-09 07:09] VITALS: BP 132/84
[2025-03-09] MEDS ORDERED: Omeprazole 20 MG CapCR PO SCH (09:45)
[2025-03-09] MEDS ORDERED: Nitroglycerin 0.4 MG SUBL SL PRN (13:15)
[2025-03-09] MEDS ORDERED: Polyethylene Glycol 3350 17 gm PO PRN (13:15)
[2025-03-09 15:15] VITALS: BP 118/71
--- NOTE | 2025-03-09 18:57 | NUR ---
SHIFT SUMMARY POD 1 I&D L TOE. NO ACUTE CHANGES TODAY. VSS, TELE IN USE - NSR 70s. TOLERATING DIET, DENIES N/V. PT REPORTS PAIN TOLERABLE c CURRENT MEDICATION MANAGEMENT PER EMAR. CHANGED DRESSING TO LLE TODAY AT BEDSIDE. GAUZE/SHARON WRAP C/D/I. ANTICIPATED WOUND VAC PLACEMENT TOMORROW. VOIDING. AMB IND. IV ABX INFUSING PER EMAR. CALL LIGHT IN REACH, BED IN LOWEST POSITION, REPORT GIVEN TO MIRI RN.
[2025-03-09] MEDS ORDERED: Docusate Sodium/Senna 1 Tab PO SCH (21:00)
[2025-03-09] MEDS ORDERED: Tamsulosin HCl 0.4 MG Cap PO SCH (21:00)
[2025-03-09 21:29] VITALS: BP 118/72
[2025-03-09] MEDS ORDERED: NS 250 ML IV PRN (23:55)
[2025-03-10 02:35] VITALS: BP 123/75
--- NOTE | 2025-03-10 03:54 | NUR ---
HOSPITALIST COMMUNICATION CALL PALCED TO HOSPITALIST D/T INTERMITENT ST ELEVATION. TELE REPORTS IT IS WITHIN THEIR ALARM PARAMETERS, BUT IT IS A CHANGE FROM THE PRE-OP EKG AND HAS BEEN OCCURING T/O THE DAY. PT IS ASYMPTOMATIC AND VSS. VERIFIED THAT THE PT HAS AM LABS, NO FURTHER ORDERS RECIEVED AT THIS TIME.
[2025-03-10 03:55] VITALS: BP 122/83
[2025-03-10 05:41] LABS: Hematocrit 37.8 % (37.0-53.0); Hemoglobin 13.1 g/dL (13.5-17.5); Mean Corpuscular HGB Conc 34.7 g/dL (31.5-36.5); Mean Corpuscular Volume 92 fL (80-100); Mean Platelet Volume 8.5 fL (9.1-12.4); Platelet Count 213 K/mm3 (150-400); RDW Coefficient Variation 12.2 % (11.7-14.2); RDW Standard Deviation 41.8 fL (35.1-46.3); Red Blood Cell Count 4.09 M/mm3 (4.30-5.90); White Blood Cell Count 6.82 K/mm3 (4.00-11.30)
[2025-03-10] MEDS ORDERED: Omeprazole 20 MG CapCR PO SCH (06:00)
[2025-03-10 06:01] LABS: Bun/Creatinine Ratio 19.3 (12.0-20.0); Calcium, Blood 8.8 mg/dL (8.5-10.1); Creatinine, Blood 0.72 mg/dL (0.60-1.20); Potassium, Blood 4.1 mmol/L (3.5-5.5)
--- NOTE | 2025-03-10 06:19 | NUR ---
SHIFT SUMMARY NOC. PT POD 2 FOR RESECTION OF LEFT 2ND METATARSAL. A/O X4, CALLS APPROPRIATELY. DRESSING IS C/D/I. PT PARTIAL WT BEARING ON LEFT HEEL. PT'S PAIN DIFFICULT TO CONTROL THIS SHIFT, PT MEDICATED WITH DILAUDID AND OXYCODONE. PT VOIDING URINE. CALL LIGHT IN REACH.
[2025-03-10 07:01] VITALS: BP 113/76
--- NOTE | 2025-03-10 07:25 | NUR ---
TELE PADS REPLACED
[2025-03-10] MEDS ORDERED: Aspirin 325 MG Tab PO SCH (09:00)
[2025-03-10] MEDS ORDERED: Lisinopril 5 MG Tab PO SCH (09:00)
[2025-03-10] MEDS ORDERED: Loratadine 10 MG Tab PO SCH (09:00)
[2025-03-10 14:46] VITALS: BP 111/73
[2025-03-10 20:32] VITALS: BP 122/81
[2025-03-10 23:07] VITALS: BP 119/79
[2025-03-11] VITALS (8 sets, daily range): BP systolic 102–139; BP diastolic 70–87
--- NOTE | 2025-03-11 07:39 | NUR ---
SHIFT SUMMARY NOC. PT POD 3 FOR RESECTION OF LEFT SECOND TOE. WOUND VAC IN PLACE AND DID NOT PRODUCE DRAINAGE THIS SHIFT BUT IS C/D/I AND COMPRESSED. PT REPORTED EPISODES OF DIZZINESS UPON STANDING AT TIMES THIS SHIFT. EDUCATION PROVIDED FOR PT TO CALL WITH ASSISTANCE TO PREVENT FALLS. PT REPORTED PAIN THIS SHIFT AND MEDICATED PER EMAR. PT REPORTED PAIN AND WAS DROWSY SO THIS RN GAVE 1MG INSTEAD OF 2MG OF ORDERED DILAUDID. PT SLEEPY WITHOUT DESAT BUT STILL REPORTING PAIN AND THAT 1MG IS "NOT ENOUGH". REINFORCED EDUCATION T/O SHIFT. PT CALLS APPROPRIATELY AND IS VOIDING URINE. CALL LIGHT IN REACH.
[2025-03-11] MEDS ORDERED: OxyCODONE HCL 5 MG TAB PO PRN (13:05)
[2025-03-11] MEDS ORDERED: HYDROmorphone HCl 2 MG Tab PO PRN (13:30)
--- NOTE | 2025-03-11 16:50 | NUR ---
L CALF PAIN & WARMNESS. REPORTS HX OF DVT. CALLED.
--- NOTE | 2025-03-11 19:20 | NUR ---
SHIFT SUMMARY PT TOELRATING FOOD AND FLUIDS WELL. POST OP D2 L METATARSAL RESECTION, WOUND VAC WNL. AMBULATES WELL IN ROOM & SITS UP IN CHAIR T/O DAY. CALLS APPROPRIATELY FOR ASSISTANCE. SMALL BM, AWAITING POSSIBLE SNF PLACEMENT. WORKUP FOR POSSIBLE DVT NEGATIVE. PAIN MANAGEMENT TRANSITIONED FROM IV TO PO. CURRENTLY RESTING IN BED.
--- NOTE | 2025-03-11 22:48 | NUR ---
2220 RN TO ROOM TO MEDICATE; MEDICATIONS DELAYED DUE TO CLUSTERING OF PAIN MEDICATION AND TIMING. UPON ENTERING ROOM, PT WAS IN BED AND HAD VAPE PEN IN LEFT HAND WHILE SLEEPING. PT AWOKE RN ENTERED ROOM. PT STATES THE VAPE PEN IS TOBACCO. RN UNSURE OF DEVICE AND NOTIFIED STEAM TURBINE ASSEMBLER. RN DISCUSSED WITH PT THAT VAPE NEEDS TO BE LOCKED UP. PT STATES "LOCK THE WHOLE BAG UP" WHEN ASKED ABOUT LOCKING UP THE VAPE PEN. SECURITY ASKED TO LOCK UP BELONGINGS BUT THERE IS NOT ENOUGH ROOM TO LOCK UP ENTIRE BELONGINGS BAG. PT NOTIFIED THAT VAPE PEN IS LOCKED IN LOCKING DRAWER; BELONGINGS AT NURSE'S STATION.
--- NOTE | 2025-03-12 00:34 | NUR ---
PT HAD C/O ONLY BEING GIVEN 2MG PO DILAUDID RATHER THAN 4MG. PT STATED HE WAS DISPLEASED WITH THIS HE WAS GETTING 4MG DURING DAY SHIFT. PT EDUCATED ON HOW THE ORDER WAS WRITTEN A 2-4MG DOSE. CHARGE NURSE TO ROOM TO MEDICATE PT WITH ADDITIONAL 2MG AND PT WAS FULLY ASLEEP. RAG CUTTING MACHINE OPERATOR DID NOT MEDICATE PT.
[2025-03-12 03:29] VITALS: BP 125/76
--- NOTE | 2025-03-12 06:12 | NUR ---
SHIFT SUMMARY PT WITH MULTIPLE ISSUES THROUGHOUT SHIFT; SEE PREVIOUS NOTES REGARDING BELONGINGS AND PAIN. PT WITH NO CHEST PAIN OR SOB. PT WITH WOUND VAC TO LLE WITH NO ISSUES OVERNIGHT. PT IV INFUSING TKO.
[2025-03-12 07:13] VITALS: BP 124/69
[2025-03-12] MEDS ORDERED: Enoxaparin 40 MG/0.4 ML SYR SC SCH (09:00)
[2025-03-12] MEDS ORDERED: Polyethylene Glycol 3350 17 gm PO SCH (09:00)
[2025-03-12 15:13] VITALS: BP 132/86
--- NOTE | 2025-03-12 17:52 | NUR ---
SHIFT SUMMARY AOX4, WOUND VAC IN PLACE TO L FOOT, COMPRESSED AND INTACT. NO DRNG OUT CANISTER. PATIENT HAD SHOWER TODAY. TOLERATES PO PAIN MEDS. AWAITING SNF PLACEMENT FOR VAC AND MED MANAGEMENT. VSS. CALL LIGHT IN REACH.
[2025-03-12 19:10] VITALS: BP 126/75
[2025-03-12] MEDS ORDERED: Sod Phosphate/Sod Biphosphate 132 ML BTL PR ONE (21:35)
[2025-03-12 22:44] VITALS: BP 116/84
[2025-03-13 05:28] VITALS: BP 125/87
--- NOTE | 2025-03-13 05:43 | NUR ---
SHIFT SUMMARY, PATIENT WITH WOUND PUMP TO LEFT SECOND TOE AND FOOT, NO DRAINAGE NOTED IN CANISTER OR TUBING. CONT TO HAVE PAIN, MEDICATED NEEDED PER EMAR. HAD A LARGE BM LAST NIGHT. IV ANTIBIOTICS CONT. POSSIBLY BEING DISCHARED TODAY. RESTED WELL T/O NOC. NO ACUTE CHANGES. VSS, AFEBRILE. WILL GIVE REPORT TO ONCOMING RN TAKING PATIENT.
[2025-03-13 07:24] VITALS: BP 111/76
[2025-03-13 11:54] VITALS: BP 115/73
[2025-03-13 12:58] LABS: Albumin, Blood 2.9 g/dL (3.4-5.0); Anion Gap 9 mmol/L (3-11); Blood Urea Nitrogen 20 mg/dL (8-24); CO2, Blood 31 mmol/L (21-32); Calcium, Blood 8.9 mg/dL (8.5-10.1); Chloride, Blood 97 mmol/L (98-108); Creatinine, Blood 0.72 mg/dL (0.60-1.20); Glomerular Filtration Rate 104 (60-); Glucose, Blood 240 mg/dL (70-99); Magnesium, Blood 1.7 mg/dL (1.6-2.4); Phosphorus, Blood 2.8 mg/dL (2.5-4.9); Potassium, Blood 4.2 mmol/L (3.5-5.5); Sodium, Blood 133 mmol/L (136-145)
[2025-03-13 14:21] VITALS: BP 134/80
--- NOTE | 2025-03-13 14:53 | NUR ---
discharge [facility] PICKED PT UP @1875. PT VSS. AXO. REPORT CALLED TO UVNR. WOUND VAC DRESSING REMAINS TO L LEG, TO BE CHANGED OUT @ FACILITY. IV LEFT IN FOR ABX. ALL BELONGINGS SENT WITH PT.
--- NOTE | 2025-03-13 15:32 | NUR ---
REPORT GIVEN TO STEPHEN CABAN AT [facility]
== END 2025-03-13 15:00 | DRG 988 ==
LOC: ER 20:35 → ERHOLD 20:36 → SURS 03-08 04:13
PROVIDERS: Family Medicine; Internal Medicine; Podiatrist Foot & Ankle Surgery; Student in an Organized Health Care Education/Training Program; ADMIT Internal Medicine
PROC: 0QTP0ZZ Resection of Left Metatarsal, Open Approach (ICD-10-PCS; principal; 2025-03-08 13:30)
DX: E11.69 Type 2 diabetes mellitus with other specified complication (principal); L03.116 Cellulitis of left lower limb; M86.8X7 Other osteomyelitis, ankle and foot; E11.628 Type 2 diabetes mellitus with other skin complications; I25.10 Atherosclerotic heart disease of native coronary artery without angina pectoris; I44.0 Atrioventricular block, first degree; E03.9 Hypothyroidism, unspecified; K21.9 Gastro-esophageal reflux disease without esophagitis; I10 Essential (primary) hypertension; E78.5 Hyperlipidemia, unspecified; E11.42 Type 2 diabetes mellitus with diabetic polyneuropathy; E11.621 Type 2 diabetes mellitus with foot ulcer; L97.529 Non-pressure chronic ulcer of other part of left foot with unspecified severity; N40.0 Benign prostatic hyperplasia without lower urinary tract symptoms; Z88.5 Allergy status to narcotic agent; Z88.0 Allergy status to penicillin; Z88.8 Allergy status to other drugs, medicaments and biological substances; Z88.1 Allergy status to other antibiotic agents; Z91.012 Allergy to eggs; Z79.899 Other long term (current) drug therapy; Z79.891 Long term (current) use of opiate analgesic; Z79.811 Long term (current) use of aromatase inhibitors; Z79.84 Long term (current) use of oral hypoglycemic drugs; I25.2 Old myocardial infarction; Z79.1 Long term (current) use of non-steroidal anti-inflammatories (NSAID); Z79.82 Long term (current) use of aspirin; Z79.2 Long term (current) use of antibiotics; Z85.048 Personal history of other malignant neoplasm of rectum, rectosigmoid junction, and anus; Z92.21 Personal history of antineoplastic chemotherapy; Z98.890 Other specified postprocedural states; Z87.19 Personal history of other diseases of the digestive system; Z95.5 Presence of coronary angioplasty implant and graft; Z98.1 Arthrodesis status; Z95.1 Presence of aortocoronary bypass graft; Z89.422 Acquired absence of other left toe(s); Z87.891 Personal history of nicotine dependence; Z90.49 Acquired absence of other specified parts of digestive tract
CPT/HCPCS: 36415; 71046; 73630; 80048; 80053; 80069; 80202; 82947; 83605; 83735; 83880; 84484; 85025; 85027; 85651; 86140; 87040; 87071; 87075; 87147; 87205; 88305; 88311; 93005; 93010; 93925; 93971; 94760; 94762; 96374; 96375; 99285-25; A9270; G0378; J0692; J1100; J1171; J1650; J1885; J2003; J2250; J2405; J2704; J3010; J3370; J7030; J7040; J7050; J7120

== ENCOUNTER 2025-03-31 20:51 | Inpatient (IN) | payer OTHER ==
[~2025-03-31] VITALS: Ht 177.8 cm; Wt 90.5 kg
[2025-03-31] MEDS ORDERED: Clindamycin 600mg in D5W 50 ML IV ONE (21:55)
[2025-03-31 22:32] LABS: BASOPHILS ABSOLUTE AUTO 0.07 K/mm3 (0.00-0.23); BASOPHILS PERCENT AUTO 1 % (0-2); EOSINOPHILS ABSOLUTE AUTO 0.44 K/mm3 (0.00-0.68); EOSINOPHILS PERCENT AUTO 4 % (0-6); Hematocrit 39.1 % (37.0-53.0); Hemoglobin 13.5 g/dL (13.5-17.5); IMMATURE GRAN ABSOLUTE AUTO 0.04 K/mm3 (0.00-0.10); IMMATURE GRAN PERCENT AUTO 0 % (0-1); LYMPHOCYTES ABSOLUTE AUTO 2.02 K/mm3 (0.84-5.20); LYMPHOCYTES PERCENT AUTO 18 % (21-46); MONOCYTES ABSOLUTE AUTO 0.79 K/mm3 (0.16-1.47); MONOCYTES PERCENT AUTO 7 % (4-13); Mean Corpuscular HGB 31.5 pg (26.0-34.0); Mean Corpuscular HGB Conc 34.5 g/dL (31.5-36.5); Mean Corpuscular Volume 91 fL (80-100); Mean Platelet Volume 8.4 fL (9.1-12.4); NEUTROPHILS ABSOLUTE AUTO 7.77 K/mm3 (1.96-9.15); NEUTROPHILS PERCENT AUTO 70 % (41-73); Platelet Count 350 K/mm3 (150-400); RDW Standard Deviation 42.7 fL (35.1-46.3); Red Blood Cell Count 4.29 M/mm3 (4.30-5.90); White Blood Cell Count 11.13 K/mm3 (4.00-11.30)
[2025-03-31] MEDS ORDERED: Morphine Sulfate 4 MG/1 ML Injection IV ONE (22:35)
[2025-03-31 22:50] LABS: Bun/Creatinine Ratio 19.8 (12.0-20.0); C-REACTIVE PROTEIN, EXT RANGE 2.18 mg/dL (0.000-0.300); Calcium, Blood 9.1 mg/dL (8.5-10.1); Creatinine, Blood 0.86 mg/dL (0.60-1.20); Potassium, Blood 3.8 mmol/L (3.5-5.5)
[2025-04-01] MEDS ORDERED: HYDROmorphone HCl/Pf 1MG SYR IV ONE (00:25)
[2025-04-01] MEDS ORDERED: Ondansetron 4 MG TAB PO PRN (01:10)
[2025-04-01] MEDS ORDERED: CefTRIAXone Sodium 1,000 MG in NS 100 ML IV SCH ×2 (01:32→21:00)
[2025-04-01] MEDS ORDERED: NS 1,000 ML IV SCH (02:00)
[2025-04-01] MEDS ORDERED: Vancomycin HCL 2,500 MG in NS 500 ML IV ONE (02:05)
[2025-04-01] MEDS ORDERED: Mag Hydrox/AL Hydrox/Simeth 30 ML UDC PO ONE (02:10)
[2025-04-01] MEDS ORDERED: HYDROmorphone HCl/Pf 1MG SYR IV PRN (02:10)
[2025-04-01 03:39] VITALS: BP 124/81
[2025-04-01 04:47] LABS: BASOPHILS ABSOLUTE AUTO 0.08 K/mm3 (0.00-0.23); BASOPHILS PERCENT AUTO 1 % (0-2); EOSINOPHILS ABSOLUTE AUTO 0.44 K/mm3 (0.00-0.68); EOSINOPHILS PERCENT AUTO 4 % (0-6); Hematocrit 39.9 % (37.0-53.0); Hemoglobin 13.4 g/dL (13.5-17.5); IMMATURE GRAN ABSOLUTE AUTO 0.05 K/mm3 (0.00-0.10); IMMATURE GRAN PERCENT AUTO 0 % (0-1); LYMPHOCYTES ABSOLUTE AUTO 1.96 K/mm3 (0.84-5.20); LYMPHOCYTES PERCENT AUTO 16 % (21-46); MONOCYTES ABSOLUTE AUTO 0.92 K/mm3 (0.16-1.47); MONOCYTES PERCENT AUTO 8 % (4-13); Mean Corpuscular HGB 31.5 pg (26.0-34.0); Mean Corpuscular HGB Conc 33.6 g/dL (31.5-36.5); Mean Corpuscular Volume 94 fL (80-100); Mean Platelet Volume 8.8 fL (9.1-12.4); NEUTROPHILS ABSOLUTE AUTO 8.75 K/mm3 (1.96-9.15); NEUTROPHILS PERCENT AUTO 72 % (41-73); Platelet Count 256 K/mm3 (150-400); RDW Standard Deviation 43.8 fL (35.1-46.3); Red Blood Cell Count 4.26 M/mm3 (4.30-5.90)
--- NOTE | 2025-04-01 05:05 | NUR ---
ASSUMED CARE/SHIFT SUMMARY PT ARRIVED VIA GURNEY TO UNIT AROUND 0330. PT ON ROOM AIR, SATS >94%, HR 80'S, SINUS RHYTHM, NO CHEST PAIN. PTS L FOOT WOUND WAS CLEANED AND REDRESSED. PHOTOS WERE TAKEN AND PLACED IN CHART. ON ASSESSMENT A NONBLANCHING PRESSURE ULCER WAS FOUND ON COCCYX, PROVIDER NOTIFIED AND AWAITING WOUND CARE ORDERS. PT C/O PAIN, MEDS PER EMAR GIVEN. NPO. PLAN FOR PODIATRY CONSULT TODAY. CALL LIGHT IN REACH.
[2025-04-01 05:12] LABS: Albumin/Globulin Ratio 0.7 (0.8-1.8); Bilirubin, Total 0.4 mg/dL (0.1-1.0); Bun/Creatinine Ratio 17.1 (12.0-20.0); Calcium, Blood 8.6 mg/dL (8.5-10.1); Creatinine, Blood 0.82 mg/dL (0.60-1.20); Globulin, Blood 4.1 g/dL (2.2-4.0); Potassium, Blood 3.9 mmol/L (3.5-5.5); Total Protein, Blood 7.1 g/dL (6.4-8.2)
[2025-04-01] MEDS ORDERED: Clindamycin 900mg in D5W 50ML 50 ML IV SCH (06:00)
[2025-04-01] MEDS ORDERED: Insulin Regular 100 UNIT/ML 10ML Vial SC SCH (06:00)
[2025-04-01 08:34] VITALS: BP 124/75
--- NOTE | 2025-04-01 08:52 | NUR ---
ASSUMPTION OF CARE: ASSUMED CARE AT START OF SHIFT (0700). PT IS DOING WELL AND RESTING IN BED. THEY ARE ALERT AND ORIENTED, ABLE TO FOLLOW COMMANDS. PT STATES HAVING 9/10 L FOOT PAIN BUT NO CHEST PAIN OR SOB AT THIS TIME. LUNG SOUNDS ARE CLEAR AND EQUAL BILATERALLY SPO2 >95% ON RA. BP STABLE WITH SBP:120'S MAP>65 HR:70-80'S PERIPHERAL IV IN THE R HAND. BANDAGING ON L FOOT DUE TO WOUNDS/PREVIOUS 2ND TOE AMPUTATION. LINES, CORDS PLACED OUT OF REACH. CALL LIGHT PLACED WITHIN REACH AND PT WAS TOLD TO PRESS CALL BUTTON WHEN THEY NEED ASSISTANCE.
[2025-04-01] MEDS ORDERED: Lisinopril 5 MG Tab PO SCH (09:00)
[2025-04-01] MEDS ORDERED: Heparin Sodium,Porcine 5,000 UNIT/0.5 ML SDV SC SCH (09:00)
[2025-04-01] MEDS ORDERED: Lactobacil 2-S.Thermo-Bifido 1 1 Cap PO SCH (09:00)
[2025-04-01] MEDS ORDERED: Vancomycin HCL 1,750 MG in NS 500 ML IV SCH (14:00)
[2025-04-01] MEDS ORDERED: Arginine/Glutamine/Calcium Hmb 1 Packet PO SCH (14:05)
[2025-04-01] MEDS ORDERED: Insulin Human Lispro 100 Units/ML 3ML Syringe SC SCH (16:30)
[2025-04-01] MEDS ORDERED: Nitroglycerin 0.4 MG SUBL SL PRN (16:55)
[2025-04-01] MEDS ORDERED: Ibuprofen 400 MG Tab PO PRN (16:55)
[2025-04-01] MEDS ORDERED: Acetaminophen 325 MG TABLET PO PRN (16:55)
[2025-04-01 18:08] VITALS: BP 125/75
--- NOTE | 2025-04-01 18:19 | NUR ---
SHIFT SUMMARY: PT IS DOING WELL, ALERT AND ORIENTED AND ABLE TO FOLLOW ALL COMMANDS. THEY REMAINED IN BED MOST OF THE DAY AND ARE ABLE TO USE WALKER TO STEP TO THE COMMODE WITH 1 PERSON ASSIST. WOUND DRESSING REMOVED FROM L FOOT AND REPLACED WITH WOUND VAC. DECIDED PT DID NOT NEED SURGERY AT THIS TIME, SO PT WAS STARTED ON CONSISTENT CARB DIET AND THEY WERE ABLE TO EAT SOME FOOD THIS AFTERNOON. PERIPHERL IV IN L FOREARM. PT HAS CONSTENT PAIN IN L FOOT AND HAS PAIN MEDICATIONS PER EMR ORDERS. LINES, CORDS, TUBES PLACED OUT OF REACH. CALL LIGHT PLACED WITHIN REACH AND PT TOLD TO PRESS BUTTON [place] NEED ASSISTANCE.
[2025-04-01 19:54] VITALS: BP 135/68
--- NOTE | 2025-04-01 20:13 | NUR ---
ASSUMPTION OF CARE: ASSUMED CARE OF PT AT 1905. PT ALERT AND ORIENTED. FOLLOWS DIRECTION AND MAKES NEEDS KNOWN. PT C/O PAIN IN LEFT FOOT AND HEADACHE. MEDICATED PER EMAR. WOUND VAC PRESENT TO LEFT SECOND TOE. PULSES PALPABLE. DRESSING INTACT. PT ON RA WITH NO C/O SOB. PT SURGICAL STATUS NO TELE. DENIES CP/PRESSURE WHEN ASKED. SBP 130'S. TOLERATING PO INTAKE WITH NO C/O N/V. PT DOES ENDORSE SOME GI UPSET AT TIMES. ABLE TO VOID INTO TOILET WITH LINE ASSIST. PT USES A WALKER AND NURSE ASSIST WHEN UP IN ROOM. PIV TO LFA, SALINE LOCKED. BED LOW AND LOCKED, CALL LIGHT IN REACH AND PT USING APPROPRIATELY.
[2025-04-01] MEDS ORDERED: Docusate Sodium/Senna 1 Tab PO SCH (21:00)
[2025-04-01] MEDS ORDERED: Gabapentin 400 MG Cap PO SCH (21:00)
[2025-04-01] MEDS ORDERED: Tamsulosin HCl 0.4 MG Cap PO SCH (21:00)
[2025-04-02] MEDS ORDERED: FentaNYL Citrate 50 MCG/ML 2 ML Injection IV PRN (01:45)
[2025-04-02 01:47] VITALS: BP 118/71
[2025-04-02 04:38] LABS: Vancomycin, Trough 15.8 ug/mL (5.0-10.0)
[2025-04-02] MEDS ORDERED: Vancomycin HCL 1,750 MG in NS 500 ML IV SCH (05:00)
--- NOTE | 2025-04-02 05:20 | NUR ---
SHIFT SUMMARY: PT ABLE TO REST OFF AND ON T/O THE SHIFT. REMAINS ALERT AND ORIENTED. COOPERATIVE WITH CARE AND MAKING NEEDS KNOWN. HAVING C/O PAIN IN LEFT FOOT T/O THE NIGHT. PT GIVEN PRN FENTANYL AND PRN DILAUDID T/O THE SHIFT WITH MINIMAL RELIEF. WOUND VAC REMAINS INTACT. PULSES REMAIN PALPABLE. PT SURGICAL STATUS WITH NO TELE. ON RA WITH NO C/O SOB. SBP 118, DENIES CP. ABLE TO VOID INTO URINAL YELLOW URINE. NO BM THIS SHIFT. TOLERATING PO INTAKE. PIV TO LFA PATENT AND INFUSING. BED LOW AND LOCKED, CALL LIGHT IN REACH.
[2025-04-02] MEDS ORDERED: Omeprazole 20 MG CapCR PO SCH (06:00)
[2025-04-02 08:32] VITALS: BP 126/72
[2025-04-02] MEDS ORDERED: Aspirin 81 MG Chew PO SCH (09:00)
--- NOTE | 2025-04-02 09:26 | NUR ---
AM NOTE: THIS RN ASSUMED CARE OF PT AT APPROX 0700, BEDSIDE REPORT COMPLETED. PT A/OX4, ABLE TO COMMUNICATE NEEDS W/ STAFF & PARTICIPATE IN CARE. VSS. HR 70'S, SBP 120'S. DENIES CHEST PAIN/PRESSURE. SPO2 >95% ON RA, RESPIRATIONS EVEN & UNLABORED. AFEBRILE. WOUND VAC IN PLACE TO RIGHT FOOT. C/O PAIN, MEDICATED PER EMAR. PEDAL PULSES STRONG. ABLE TO VOID IN URINAL INDEPENDENTLY. UP TO SHOWER THIS AM. NO OTHER NEEDS AT THIS TIME.
[2025-04-02] MEDS ORDERED: OxyCODONE HCL 5 MG TAB PO PRN (11:20)
[2025-04-02] MEDS ORDERED: ZINC OXIDE/PETROLATUM, YELLOW 1 APPLIC/71 GM PASTE TOP PRN (14:35)
[2025-04-02 16:08] VITALS: BP 136/77
--- NOTE | 2025-04-02 17:41 | NUR ---
END OF SHIFT NOTE: NO ACUTE EVENTS THIS SHIFT. PT A/OX4, CONTINUES TO MAKE NEEDS KNOWN & PARTICIPATE IN CARE. VSS. HR 70-80'S, SBP 120-130'S. DENIES CHEST PAIN. SPO2 >95% ON RA, RESPIRATIONS EVEN & UNLABORED. AFEBRILE. C/O PAIN, REPORTS IMPROVEMENT W/ PO OXYCODONE PER EMAR. ADEQUATE PO INTAKE. ABLE TO VOID IN URINAL INDEPENDENTLY AT THE BEDSIDE. NO BM'S. AMBULATES W/ FWW INDEPENDENTLY. WOUND VAC TO LEFT FOOT CHANGED THIS AFTERNOON. NO OTHER NEEDS AT THIS TIME. PT RESTING IN BED W/ CALL LIGHT IN REACH.
[2025-04-02 20:36] VITALS: BP 135/80
[2025-04-02] MEDS ORDERED: OxyCODONE HCL 20 MG TABCR PO SCH (21:00)
--- NOTE | 2025-04-03 01:33 | NUR ---
REPORT GIVEN AND PT TAKEN TO ROOM 329 APPROXIMATELY 0140.
[2025-04-03 01:48] VITALS: BP 144/84
--- NOTE | 2025-04-03 01:50 | NUR ---
PT HERE VIA WHEELCHAIR. PT ABLE TO STAND AND TRANSFER TO MEDICAL FLOOR BED. PT IS ALERT AND ORIENTED X3. LS ARE CLEAR THROUGHOUT. BT'S ARE PRESENT. CALL LIGHT WITHIN REACH. BED IN LOW POSITION. WOUND VAC IN PLACE. IV TO LEFT AC FLUSHED.
--- NOTE | 2025-04-03 06:26 | NUR ---
SHIFT SUMMARY - NO ACUTE CHANGES SINCE ADMIT LAST NOC. PT IS AMBULATORY WITH A WALKER TO BRP - UNMEASURED VOID THIS AM. PT MEDICATED X2 FOR PAIN WITH GOOD RELIEF. PT PROVIDED WITH MILK, PER PT REQUEST - THIS USUALLY HELPS HIM TO HAVE A BM - HOWEVER PT HASN'T HAD ANY SUCCESS YET. REPORT WAS THAT PT WAS GIVEN PRUNE JUICE IN ICU PRIOR TO TRANSFER. PT TRANSFERRED TO MEDICAL FLOOR FROM ICU 13 LAST NOC. WOUND VAC CONTINUES IN PLACE TO LEFT FOOT. CALL LIGHT WITHIN REACH. BED IN LOW POSITION. FLUIDS AT BEDSIDE. WILL REPORT OFF TO ONCOMING SHIFT.
[2025-04-03 07:09] VITALS: BP 119/73
[2025-04-03] MEDS ORDERED: Aspirin 325 MG Tab PO SCH (09:00)
--- NOTE | 2025-04-03 17:55 | NUR ---
NO ACUTE CHANGES, LEFT WOUND VAC DRESSING REINFORCED, MEDICATED FOR PAIN, ALERT AND ORIENTED X3, CLEARLY MAKES NEEDS KNOWN, FRIENDS/DOG VISITED TODAY, PLEASANT AND COOPERATIVE TO CARE, CALL LIGHT WITH IN REACH
[2025-04-03 19:07] VITALS: BP 108/70
[2025-04-04] MEDS ORDERED: FentaNYL Citrate 50 MCG/ML 2 ML Injection IV PRN (00:15)
[2025-04-04 03:15] VITALS: BP 104/70
--- NOTE | 2025-04-04 04:09 | NUR ---
SHIFT SUMMARY PT HAS BEEN RESTING COMFORTABLY OVERNIGHT. PT HAS BEEN AOX4, CALM AND COOPERATIVE, CALLING APPROPRIATELY. HE HAS WOUND VAC CONNECTED TO LEFT FOOT S/P AMPUTATION OF L 2ND TOE. PT REPORTING EXTREME PAIN IN LEFT FOOT THAT HAS BEEN RELIEVED W/ REPOSITIONING, REST, AND MEDICATIONS (SEE MAR). HE HAS BEEN INDEPENDENT IN . OTHER THAN PAIN IN L FOOT, PT HAS HAD NO COMPLAINTS. NO ACUTE EVENTS OVERNIGHT.
[2025-04-04 07:30] VITALS: BP 111/65
[2025-04-04 15:34] VITALS: BP 102/73
--- NOTE | 2025-04-04 17:45 | NUR ---
SHIFT NOTE: PT IND IN ROOM AND ABLE TO MAKE HIS NEEDS KNONW. WOUND VAC ON LEFT FOOT. PT REPORTS PAIN THAT HAS BEEN RELIEVED BY REST AND MEDICATIONS (SEE EMAR). PT CONTINUES TO WAIT FOR SNF PLACEMENT. CARE CONTINUES
[2025-04-04 19:35] VITALS: BP 112/76
[2025-04-05 04:15] VITALS: BP 109/71
[2025-04-05 07:26] VITALS: BP 101/68
[2025-04-05] MEDS ORDERED: JUVEN PACKET1 EAC3 PO (11:39)
[2025-04-05] MEDS ORDERED: HUMALOG JU100 UNIT/2 SC (11:39)
[2025-04-05] MEDS ORDERED: ZINCTRAL57 GM TOP (11:40)
[2025-04-05] MEDS ORDERED: OXYC5 PO (11:40)
--- NOTE | 2025-04-05 12:58 | NUR ---
DISCHARGE TO [facility], TRANSPORT HERE 1300 IV PULLED INTACT. PERSONAL ITEMS IN BAG TO PT. CALLED REPORT TO LENNY CABAN
== END 2025-04-05 13:05 | DRG 607 ==
LOC: ER 20:51 → ERHOLD 04-01 01:10 → ICUE 04-01 01:10 → MEDS 04-03 01:39
PROVIDERS: Emergency Medicine; Student in an Organized Health Care Education/Training Program; ADMIT Internal Medicine
DX: B87.1 Wound myiasis (principal); T87.44 Infection of amputation stump, left lower extremity; Z59.00 Homelessness unspecified; D84.9 Immunodeficiency, unspecified; K21.9 Gastro-esophageal reflux disease without esophagitis; E03.9 Hypothyroidism, unspecified; E11.51 Type 2 diabetes mellitus with diabetic peripheral angiopathy without gangrene; I25.10 Atherosclerotic heart disease of native coronary artery without angina pectoris; H81.09 Meniere's disease, unspecified ear; I10 Essential (primary) hypertension; E78.5 Hyperlipidemia, unspecified; Z85.048 Personal history of other malignant neoplasm of rectum, rectosigmoid junction, and anus; Z92.21 Personal history of antineoplastic chemotherapy; Z98.890 Other specified postprocedural states; Z88.0 Allergy status to penicillin; Z88.5 Allergy status to narcotic agent; Z91.012 Allergy to eggs; Z88.1 Allergy status to other antibiotic agents; Z79.899 Other long term (current) drug therapy; Z79.1 Long term (current) use of non-steroidal anti-inflammatories (NSAID); Z79.84 Long term (current) use of oral hypoglycemic drugs; Z79.82 Long term (current) use of aspirin; Z79.811 Long term (current) use of aromatase inhibitors; I25.2 Old myocardial infarction; Z87.19 Personal history of other diseases of the digestive system; Z95.5 Presence of coronary angioplasty implant and graft; Z90.49 Acquired absence of other specified parts of digestive tract; Z95.1 Presence of aortocoronary bypass graft; Z98.1 Arthrodesis status; Z89.422 Acquired absence of other left toe(s); Z87.891 Personal history of nicotine dependence; Z92.25 Personal history of immunosuppression therapy
CPT/HCPCS: 36415; 73630; 73700; 80048; 80053; 80202; 82947; 83605; 85025; 85651; 86140; 87040; 94760; 96374; 96375; 97116; 97161; 97530; 99285-25; A9270; J0696; J1171; J1644; J1815; J2270; J3010; J3370; J7030; J7040

== ENCOUNTER 2025-04-18 20:16 | Emergency (ER) | payer OTHER ==
[~2025-04-18] VITALS: Ht 177.8 cm; Wt 113.4 kg
[~2025-04-18 20:16] MED LIST changes: +HUMALOG JU100 UNIT/2 SC; +JUVEN PACKET1 EAC3 PO; +ZINCTRAL57 GM TOP
[2025-04-19] MEDS ORDERED: OxyCODONE HCL 5 MG TAB PO ONE ×2 (05:05→06:40)
[2025-04-19] MEDS ORDERED: Lidocaine 4% 1 Patch TOP ONE (06:40)
[2025-04-19] MEDS ORDERED: LIDOCAINE1 EAC1 TOP (06:49)
[2025-04-19 07:10] VITALS: BP 127/78
== END 2025-04-19 08:37 | disposition home or self-care (01) ==
LOC: ER 20:16
DX: S30.0XXA Contusion of lower back and pelvis, initial encounter (principal); E11.40 Type 2 diabetes mellitus with diabetic neuropathy, unspecified; E78.5 Hyperlipidemia, unspecified; I10 Essential (primary) hypertension; E03.9 Hypothyroidism, unspecified; K21.9 Gastro-esophageal reflux disease without esophagitis; I25.2 Old myocardial infarction; W01.0XXA Fall on same level from slipping, tripping and stumbling without subsequent striking against object, initial encounter; Z87.891 Personal history of nicotine dependence; Z79.4 Long term (current) use of insulin; Z79.82 Long term (current) use of aspirin; Z79.84 Long term (current) use of oral hypoglycemic drugs; Z88.0 Allergy status to penicillin; Z88.5 Allergy status to narcotic agent; Z88.1 Allergy status to other antibiotic agents; Z88.8 Allergy status to other drugs, medicaments and biological substances
CPT/HCPCS: 72100; 74177; 99284-25; A9270; Q9967

== ENCOUNTER 2025-07-16 23:32 | Emergency (ER) | payer OTHER ==
[~2025-07-16] VITALS: Ht 177.8 cm; Wt 92.5 kg
[~2025-07-16 23:32] MED LIST changes: +LIDOCAINE1 EAC1 TOP
[2025-07-16] MEDS ORDERED: Morphine Sulfate 4 MG/1 ML Injection IV ONE (23:45)
[2025-07-16] MEDS ORDERED: Ondansetron HCl 2 MG / ML 2ML Vial IV ONE (23:45)
[2025-07-17 00:10] LABS: BASOPHILS ABSOLUTE AUTO 0.08 K/mm3 (0.00-0.23); BASOPHILS PERCENT AUTO 1 % (0-2); EOSINOPHILS ABSOLUTE AUTO 0.39 K/mm3 (0.00-0.68); EOSINOPHILS PERCENT AUTO 5 % (0-6); Hematocrit 39.9 % (37.0-53.0); Hemoglobin 14.7 g/dL (13.5-17.5); IMMATURE GRAN ABSOLUTE AUTO 0.02 K/mm3 (0.00-0.10); IMMATURE GRAN PERCENT AUTO 0 % (0-1); LYMPHOCYTES ABSOLUTE AUTO 2.49 K/mm3 (0.84-5.20); LYMPHOCYTES PERCENT AUTO 31 % (21-46); MONOCYTES ABSOLUTE AUTO 0.68 K/mm3 (0.16-1.47); MONOCYTES PERCENT AUTO 9 % (4-13); Mean Corpuscular HGB Conc 36.8 g/dL (31.5-36.5); Mean Corpuscular Volume 87 fL (80-100); NEUTROPHILS ABSOLUTE AUTO 4.35 K/mm3 (1.96-9.15); NEUTROPHILS PERCENT AUTO 54 % (41-73); NRBC ABSOLUTE 0.00 K/mm3 (0.00-0.02); NRBC Auto 0.0 /100 WBC (0.0-0.2); Platelet Count 170 K/mm3 (150-400); RDW Coefficient Variation 13.2 % (11.7-14.2); RDW Standard Deviation 41.4 fL (35.1-46.3)
[2025-07-17 00:30] LABS: Alanine Aminotransfer (ALT/SGP 35.0 U/L (12-78); Albumin, Blood 3.3 g/dL (3.4-5.0); Albumin/Globulin Ratio 0.9 (0.8-1.8); Anion Gap 9.0 mmol/L (3-11); Aspartate Aminotrans (AST/SGOT 23.0 U/L (12-37); Bilirubin, Total 0.5 mg/dL (0.1-1.0); Blood Urea Nitrogen 11.0 mg/dL (8-24); CO2, Blood 27.0 mmol/L (21-32); Calcium, Blood 8.7 mg/dL (8.5-10.1); Chloride, Blood 100.0 mmol/L (98-108); Creatinine, Blood 0.82 mg/dL (0.60-1.20); Globulin, Blood 3.8 g/dL (2.2-4.0); Glucose, Blood 289.0 mg/dL (70-99); Magnesium, Blood 2.0 mg/dL (1.6-2.4); Potassium, Blood 3.9 mmol/L (3.5-5.5); Sodium, Blood 132.0 mmol/L (136-145); Total Protein, Blood 7.1 g/dL (6.4-8.2)
[2025-07-17] MEDS ORDERED: DOXY100 PO (01:43)
[2025-07-17 02:06] VITALS: BP 115/70
== END 2025-07-17 02:25 | disposition home or self-care (01) ==
LOC: ER 23:32
PROVIDERS: Student in an Organized Health Care Education/Training Program
DX: J18.9 Pneumonia, unspecified organism (principal); I10 Essential (primary) hypertension; E11.21 Type 2 diabetes mellitus with diabetic nephropathy; K21.9 Gastro-esophageal reflux disease without esophagitis; Z87.891 Personal history of nicotine dependence; Z88.0 Allergy status to penicillin; Z88.5 Allergy status to narcotic agent; Z88.8 Allergy status to other drugs, medicaments and biological substances; Z79.899 Other long term (current) drug therapy; Z79.84 Long term (current) use of oral hypoglycemic drugs; Z79.82 Long term (current) use of aspirin
CPT/HCPCS: 71045; 80053; 83735; 83880; 84484; 85025; 93005; 93010; 96374; 96375; 99285-25; A9270; J2270; J2405